=== PATIENT | male | born 1940 | race Caucasian/White ===

== ENCOUNTER 2016-07-16 10:20 | Emergency (ER) | payer MEDICARE, OTHER ==
[2016-07-16 10:43] VITALS: BP 115/56; PULSE 55; RESP 18; TEMP 97.4
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
== END 2016-07-16 11:23 | disposition home or self-care (01) ==
LOC: EC 10:20
DX: K59.03 Drug induced constipation (principal); T40.2X5A Adverse effect of other opioids, initial encounter; M06.9 Rheumatoid arthritis, unspecified; Z86.59 Personal history of other mental and behavioral disorders; I25.10 Atherosclerotic heart disease of native coronary artery without angina pectoris; I10 Essential (primary) hypertension; E78.00 Pure hypercholesterolemia, unspecified; F41.9 Anxiety disorder, unspecified; Z79.82 Long term (current) use of aspirin; Z79.899 Other long term (current) drug therapy; Z91.040 Latex allergy status; F17.290 Nicotine dependence, other tobacco product, uncomplicated
CPT/HCPCS: 99284

== ENCOUNTER 2016-07-19 01:57 | Inpatient (IN) | payer MEDICARE, OTHER ==
[2016-07-19] MEDS ORDERED: ONDANSETRON 4 MG/2 ML VIAL IVP STA (02:55)
[2016-07-19] MEDS ORDERED: SODIUM CHLORIDE 0.9% 1,000 ML IV STA (02:55)
[2016-07-19] MEDS ORDERED: FAMOTIDINE 20 MG/2 ML VIAL IV STA (02:56)
[2016-07-19 03:07] LABS: Basophils # (A) 0.1 k/uL (0-0.2); Basophils % (A) 1 %; CH 27.9; CHCM 33.7; Eosinophils # (A) 0.6 k/uL (0-0.7); Eosinophils % (A) 8 %; HCT 42.2 % (39.0-53.0); HDW 2.25; Luc # (Auto) 0.25; Luc % (Auto) 4; Lymphocytes # (A) 1.1 k/uL (1.0-4.8); Lymphocytes % (A) 17 %; MCH 27.5 pg (25.0-35.0); MCHC 33.2 g/dL (31.0-37.0); Mean Platelet Volume 7.4; Monocytes # (A) 0.6 k/uL (0-1.0); Monocytes % (A) 9 %; Neutrophils # (A) 4.1 k/uL (1.3-7.7); Neutrophils % (A) 62 %; RBC 5.08 m/uL (4.30-5.90); WBC 6.7 k/uL (3.8-10.6); WBC (Perox) 7.07
[2016-07-19 03:17] LABS: INR 1.1 (<1.1); Partial Thromboplastin Time 27.9 sec (22.0-30.0); Prothrombin Time 11.1 sec (9.0-12.0)
[2016-07-19 03:18] LABS: ALT 23 U/L (21-72); AST 16 U/L (17-59); Alkaline Phosphatase 130 U/L (38-126); Amylase 42 U/L (30-110); Anion Gap 12 mmol/L; Blood Urea Nitrogen 15 mg/dL (9-20); Calcium 9.5 mg/dL (8.4-10.2); Carbon Dioxide 24 mmol/L (22-30); Chloride 106 mmol/L (98-107); Glucose 101 mg/dL (74-99); Magnesium 2.1 mg/dL (1.6-2.3); Non-African American GFR(MDRD) >60 (>60 ml/min/1.73 sqM); Potassium 3.9 mmol/L (3.5-5.1); Sodium 142 mmol/L (137-145); Total Bilirubin 0.5 mg/dL (0.2-1.3); Total Protein 7.2 g/dL (6.3-8.2)
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
[2016-07-19 03:27] LABS: Creatine Kinase 43 U/L (55-170)
[2016-07-19 03:40] LABS: Creatine Kinase MB 0.5 ng/mL (0.0-2.4); Troponin I <0.012 ng/mL (0.000-0.034)
--- NOTE | 2016-07-19 03:55 | XR ---
EXAMINATION TYPE: XR chest 2V DATE OF EXAM: 07/19/2016 3:31 AM COMPARISON: 02/18/2016 HISTORY: Chest pain history of CAD, CABG previous GA nausea and vomiting difficulty in and painful sw allowing TECHNIQUE: Frontal and lateral views of the chest are obtained. FINDINGS: Mild chronic lung changes are suggested. There is mild cardiomegaly and postsurgical changes of stevens otomy. There is no focal air space opacity, pleural effusion, or pneumothorax seen. The osseous structures a re intact. IMPRESSION: 1. Chronic lung changes. 2. No active lung infiltrates. 3. Sternotomy and mild cardiomegaly. 4. No significant interval change
[2016-07-19] MEDS ORDERED: SODIUM CHLORIDE 0.9% 1,000 ML IV ONE (09:14)
[2016-07-19] MEDS ORDERED: DOCUSATE 100 MG CAP PO PRN (09:17)
[2016-07-19] MEDS ORDERED: MAGNESIUM CITRATE 296 ML BOTTLE PO PRN (09:17)
[2016-07-19] MEDS ORDERED: Acetaminophen-Codeine 300-30mg TAB PO PRN (09:17)
[2016-07-19] MEDS ORDERED: SIMETHICONE 80 MG CHEWABLE PO PRN (09:17)
[2016-07-19] MEDS ORDERED: NITROGLYCERIN SL TABS 0.4 MG TAB SUBLINGUAL PRN (09:17)
[2016-07-19] MEDS ORDERED: LIDOCAINE 1% INJ 10MG/ML (20 ML MDV) ONE (11:06)
[2016-07-19] MEDS ORDERED: KETAMINE 10 MG/ML 20 ML VIAL ONE (11:06)
[2016-07-19] MEDS ORDERED: PROPOFOL 10 MG/ML 20 ML VIAL IV ONE (11:06)
[2016-07-19] MEDS ORDERED: IV FLUID CONTINUATION 1,000 ML IV ONE (11:15)
--- NOTE | 2016-07-19 11:31 | P.PCN ---
Date of Procedure: 07/19/16 Procedure(s) Performed: BRIEF HISTORY: Patient is a 75-year-old, pleasant, white male, scheduled for an upper endoscopy as a part of evaluation of progressive dysphagia to solids of several months duration but much worse since last night after dinner. Because of the clinical suspicion for acute foreign body impaction he scheduled for an upper endoscopy. PROCEDURE PERFORMED: Esophagogastroduodenoscopy and foreign body removal. PREOPERATIVE DIAGNOSIS: Progressive dysphagia to solids with acute worsening of symptoms since last night. IV sedation per anesthesia. PROCEDURE: After informed consent was obtained, the patient was brought into the endoscopy unit. IV conscious sedation was administered by Anesthesia under continuous monitoring. Initially the Olympus GIF-140 video endoscope was inserted into the mouth. Esophagus intubated without any difficulty. It was gradually advanced into the distal esophagus there was a large piece of meat impacted in the distal esophagus. Using a Zabala net I was able to remove the piece of meat along with the scope. Following this the esophagus was reintubated without any difficulty and was gradually advanced into the distal esophagus where the esophageal stricture was identified. With gentle pressure I was able to push the scope into the stomach and duodenum and carefully examined. The bulb and the second part of the duodenum appeared normal. The scope at this time was withdrawn to the stomach, adequately insufflated with air , and upon careful examination, mucosa of the antrum, body, cardia and the fundus appeared normal. The scope was then withdrawn into the esophagus. The GE junction was located at 37 cm from the incisors. Once again there was a distal esophageal stricture identified. There was small amount of oozing noted at the site where the scope was passed. Some erosions were also identified in this area. Rest of the esophagus appeared normal and the patient tolerated the procedure well IMPRESSION: 1. Distal esophageal stricture with food impaction status post foreign body removal as described above. 2. Small hiatal hernia. RECOMMENDATIONS: The findings of this examination were discussed with the patient.. He will be started on a soft diet. We'll start him on Protonix 40 mg every 12 hours. He can be discharged home later today or tomorrow.
--- NOTE | 2016-07-19 13:36 | CONS ---
DATE OF CONSULTATION: 07/19/2016 REASON FOR CONSULTATION: Dysphagia, decreased appetite and heartburn. HISTORY OF PRESENT ILLNESS: The patient is a 75-year-old pleasant, white male who came into the emergency room last night complaining of dysphagia for the last several months' duration. The patient also complains of heartburn and decreased oral intake because of lack of appetite. He came into the emergency room and I was called rubber roller grinder operator around 4:00 for possible foreign body and the patient was scheduled to have an upper endoscopy with foreign body removal this morning; however, in the meantime, he did not have any family available and hence it was decided to admit the patient for observation. The patient, however, states that he is feeling much better. He still has dysphagia, that has been progressively getting worse for the last several weeks duration. He has heartburn almost on a daily basis. He denies any recent PPI use. No recent NSAID use also. PAST MEDICAL HISTORY: Significant for schizophrenia, hypertension, coronary artery disease, mild dementia, rheumatoid arthritis, history of DE in the past, psoriasis. PAST SURGICAL HISTORY: Appendectomy, cholecystectomy, CABG, and cardiac cath. Medications at home include Zetia, metoprolol, Norvasc, [place], vitamin D3, aspirin, Colace and magnesium citrate. SOCIAL HISTORY: No smoking or alcohol use. FAMILY HISTORY: Unremarkable. REVIEW OF SYSTEMS: CARDIOPULMONARY: No chest pain or shortness of breath. GENITOURINARY: No dysuria or hematuria. MUSCULOSKELETAL: Unremarkable. SKIN: Unremarkable. ENDOCRINE: Unremarkable. PSYCHIATRIC: Unremarkable. NEUROLOGY: Unremarkable. ENT/VISION: Unremarkable. CONSTITUTIONAL: No recent weight loss. No fevers, chills or night sweats. On physical examination, blood pressure is 150/69, pulse is 79, temperature 97.2. HEENT: Examination unremarkable. Conjunctivae pink. Sclerae anicteric. Oral cavity, no lesions. NECK: No JVD or lymph node enlargement. CHEST: Clear to auscultation. HEART: Regular rate and rhythm. ABDOMEN: Soft. Bowel sounds are positive. No organomegaly. EXTREMITIES: No pedal edema. SKIN: No rashes. NEURO: Alert and oriented x3. No focal deficits. LABS: CBC with differential count is within normal limits. Basic metabolic panel is within normal limits. Alkaline phosphatase is 130. IMPRESSION: This is a patient who presents to the ER with dysphagia for the last several months duration, which has been progressively getting worse, but much worse since last night, possibly we are dealing with food impaction in the distal esophagus. Apparently, the patient had a similar episode 2 years ago requiring an upper endoscopy with foreign body removal. RECOMMENDATIONS: Will proceed with an upper endoscopy today. Discussed with the patient risks, benefits, and complications of procedure and he is agreeable to it. Thank you for this consultation.
[2016-07-19] MEDS: PANTOPRAZOLE 40 MG TABLET PO SCH ×2 (14:19→18:18)
[2016-07-19] MEDS: HYDROcodone/APAP 7.5-325MG 1 EACH TAB PO PRN (20:16)
[2016-07-19] MEDS ORDERED: EZETIMIBE 10 MG TAB PO SCH (22:00)
[2016-07-20] MEDS: HYDROcodone/APAP 7.5-325MG 1 EACH TAB PO PRN (04:08)
[2016-07-20] MEDS: PANTOPRAZOLE 40 MG TABLET PO SCH (08:23)
[2016-07-20 08:32] VITALS: BP 123/61; PULSE 57; RESP 16; TEMP 98.4
[2016-07-20] MEDS ORDERED: ASPIRIN 81 MG CHEW PO SCH (09:00)
[2016-07-20] MEDS ORDERED: METOPROLOL TARTRATE 50 MG TAB PO SCH (09:00)
[2016-07-20] MEDS ORDERED: amLODIPine 10 MG TAB PO SCH (09:00)
--- NOTE | 2016-07-20 11:20 | P.PN ---
Subjective Principal diagnosis: dysphagia Status post EGD for evaluation progressive dysphagia to solids for several months with findings of distal esophageal stricture with food impaction status post removal and small sliding hiatal hernia. Tolerating soft diet. Dysphagia improved. Objective - Vital Signs Vital signs: Vital Signs Temp 98.4 F 07/20/16 07:00 Pulse 57 L 07/20/16 07:00 Resp 16 07/20/16 07:00 BP 123/61 07/20/16 07:00 Pulse Ox 95 07/20/16 07:00 Intake & Output 07/19/16 07/20/16 07/20/16 18:59 06:59 18:59 Intake Total 100 500 Balance 100 500 Intake: IV 100 500 Sodium Chloride 0.9% 1, 500 000 ml @ 50 mls/hr IV . Q20H ONE Rx#:[id number] Other: # Voids 2 - Exam General appearance: The patient is alert, oriented, in no acute distress. HET: Head is normocephalic and atraumatic. Pupils are equal and reactive. Oropharynx is clear without lesions. Neck: Supple without lymphadenopathy. Trachea midline. Heart: S1 S2. Regular rate and rhythm. Lungs: No crackles or wheezes are heard. Abdomen: Soft, nontender, nondistended with bowel sounds. No peritoneal signs. No palpable organomegaly or masses. Extremities: Normal skin color and turgor. No cyanosis, rash, ulceration, clubbing, or edema. Radial and pedal pulses are 2/4 bilaterally. Neurological: No focal deficits. Strength and sensation are grossly intact. - Labs CBC & Chem 7: 07/19/16 03:00 07/19/16 03:00 Assessment and Plan Plan: Impression: 1. Dysphagia status post EGD with findings of distal esophageal stricture with food impaction status post removal with small sliding hiatal hernia. Plan: 1. Agreeable for discharge. We'll follow as needed. 2. Protonix 40 mg twice daily. Return to office in 1-2 weeks. Assessment and plan of care discussed with Dr. Alan.
--- NOTE | 2016-07-20 11:21 | P.DS ---
Providers Date of admission: 07/19/16 09:15 Expected date of discharge: 07/20/16 Attending physician: West Bateman Consults: Dr. Shrestha GI Primary care physician: West Bateman Hospital Course: a 75-year-old gentleman presented on the day of admission to the emergency room July 19 with a chief complaint of dysphagia onset several months prior has gotten progressively worse. patient stated that he was having difficult time swallowing with noting a burning sensation in the chest. patient states he was vomiting up everything he tried to eat. patient stated the burning radiated up into the esophagus. [place] like his chest was burning. The patient reports that he felt like there was food in the esophagus he could not swallow. Patient stated he had a similar epsode several years prior it did require an endoscopic with a foreign body removed. Patient was admitted to the services of the attending. A GI Dr. Shrestha consultation was obtained for the progressive dysphagia with acute worsening of symptoms within the last 24 hours. recommendations were to proceed with an EGD to evaluate patient elected to proceed and did undergo an EGD with foreign body removed. Postprocedure patient's diet was advanced on the day of discharge patient was able to tolerate a full diet there were no further symptoms. Patient was started on protonix felt to be appropriate to be discharged to home Impression discharge diagnosis present on admission progressive dysphagia to solids status post EGD with foreign body remova [id number] History of esophageal reflux Small hiatal hernia per EGD Distal esophageal stricture with food impaction noted on an EGD July 19 History of a mood disorder schizophrenia anxiety depression history of psoriasis Memory impairment hypertension The above dictated assessment and findings were discussed with dr bateman Impression and the plan of care have been dictated as directed. Leticia Faust nurse practitioner acting as a scribe for dr bateman Patient Condition at Discharge: Good Plan - Discharge Summary New Discharge Prescriptions: Pantoprazole [Protonix] 40 mg PO AC-BID #60 tablet. Discharge Medication List Ezetimibe [Zetia] 10 mg PO HS@219901/14/14 [History] Metoprolol Tartrate [Lopressor] 50 mg PO DAILY@89901/14/14 [History] amLODIPine BESYLATE [Norvasc] 10 mg PO DAILY@89901/14/14 [History] Nitroglycerin Sl Tabs [Nitrostat] 0.4 mg SUBLINGUAL Q5M PRN 10/12/15 [History] HYDROcodone/APAP 7.5-325MG [[place] 7.5-325] 1 tab PO TID PRN 12/18/15 [History] Ergocalciferol [Vitamin D2 (DRISDOL)] 50,000 unit PO QMONTH 02/18/16 [History] Simethicone [Gas-X] 125 mg PO DAILY PRN 02/18/16 [History] Aspirin EC [Ecotrin Low Dose] 81 mg PO DAILY@0900 07/04/16 [History] Acetaminophen-Codeine 300-30mg [Tylenol w/codeine #3] 1 tab PO Q4H PRN 07/16/16 [History] Docusate [Colace] 100 mg PO BID PRN 07/16/16 [History] Magnesium Citrate [Citrate of Magnesia] 296 ml PO DAILY PRN 07/16/16 [History] Pantoprazole [Protonix] 40 mg PO AC-BID #60 tablet.dr 07/20/16 [Rx] Follow up Appointment(s)/Referral(s): West Bateman MD [Primary Care Provider] - 1-2 days Debbie Alan MD [STAFF PHYSICIAN] - 1 Week Patient Instructions/Handouts: Dysphagia (ED) Discharge Disposition: HOME SELF-CARE
--- NOTE | 2016-07-20 21:06 | HP ---
DATE OF ADMISSION: 07/19/2016 CHIEF COMPLAINT: Dysphagia and foreign body in the esophagus. HISTORY OF PRESENT ILLNESS: This is another admission for this 75-year-old white male who has a history of CAD and COPD as well as depression. He was eating and impacted a bolus of fluid in his esophagus. He came to emergency room. He was taken to the operating room and a large bolus of meat was removed. Apparently no other pathology was seen. He had no fever, chills, hemoptysis, vomiting, diarrhea, melena, etc. He is admitted for observation based on upon his history of coronary artery disease, COPD and the anesthesia. REVIEW OF SYSTEMS: He is doing fine now. He has no symptoms at all. He is well and feeling has no pain. He denied any shortness of breath, cough, hemoptysis, fever, ( ) suggestion of aspiration, etc. Past medical history, family history, and personal and social histories are all otherwise unremarkable or noncontributory. HE IS ALLERGIC TO NSAIDS AND PENICILLIN, LASIX, SINEQUAN AND HALDOL. He is on: 1. Zetia 10 mg once a day. 2. Hydroxyzine 10 mg twice a day for itching. 3. ( ) 50 mg a day. 4. Vitamin D 50,000 units a month. 5. Humira for rheumatoid arthritis. 6. Amlodipine 10 mg once a day. 7. Ativan 0.5 t.i.d. p.r.n. 8. 81 mg aspirin. PHYSICAL EXAMINATION: Blood pressure 124/60 with a pulse of 56, respirations 12, he is afebrile. GENERAL: Appeared to be well-developed, well-nourished, in no acute distress. SKIN: Skin color is normal. Skin is warm and dry. Lymph nodes are not enlarged. Head, ears, eyes, nose, mouth, and throat were normal. Neck veins not distended. Thyroid is not enlarged. Chest is clear. Cardiac exam is normal. Soft, nontender. EXTREMITIES: Normal. Neurologically intact. IMPRESSION: 1. Dysphagia due to foreign body in esophagus. 2. Coronary artery disease. 3. Chronic obstructive pulmonary disease. 4. Rheumatoid arthritis. 5. Anxiety, depression. PLAN: Bed rest, intravenous fluids and frequent monitoring of his neurologic status and vital signs and probably home tomorrow.
--- NOTE | 2016-07-20 21:37 | PN ---
DATE OF SERVICE: 07/20/2016 CHIEF COMPLAINT: Obstructed esophagus with CAD and COPD . HISTORY OF PRESENT ILLNESS: This gentleman is doing well and he is awake and alert. He feels steady and he is eating and swallowing solids. PHYSICAL EXAMINATION: CHEST: Clear. CARDIAC: Normal. ABDOMEN: Soft, nontender. IMPRESSION: 1. Esophageal obstruction with foreign body. 2. Coronary artery disease. 3. Chronic obstructive pulmonary disease. 4. Depression. 5. RA. PLAN: Probably home later today and this will be arranged by the nurse practitioner.
--- NOTE | 2016-07-23 21:11 | DS ---
DATE OF ADMISSION: 07/19/2016 DATE OF DISCHARGE: 07/20/2016 CHIEF COMPLAINT: Foreign body in the esophagus and chest pain with CAD. HISTORY OF PRESENT ILLNESS AND PHYSICAL EXAMINATION: Details of this man's history and physical can be found in the initial workup. LABORATORY STUDIES: While he was in the hospital he had laboratory studies, details of which can be found in the laboratory section of his chart. COURSE IN THE HOSPITAL: After admission he was placed on bed rest, started on intravenous fluids and had an endoscopy. A large foreign body/meat bolus was removed from the distal esophagus. No other pathology was seen. He was kept overnight because of his history of COPD and heart disease. He did well. The next day it was felt that he could go home on his usual diet and activity and regular medications. He will be seen in the office in several days. FINAL DIAGNOSES: 1. Foreign body in the distal saphenous. 2. Chest pain. 3. Coronary artery disease. 4. Chronic obstructive pulmonary disease. 5. Depression. OPERATIONS: Endoscopy and removal of foreign body. CONSULTATION: GI. He is improved.
[2016-08-17] MEDS ORDERED: ERGOCALCIFEROL 50,000 UNIT CAP PO SCH (12:00)
== END 2016-07-20 14:30 | disposition home or self-care (01) | DRG 395 ==
LOC: EC 01:57 → 5MS5E 09:15 → 5ONC 09:58
PROVIDERS: ADMIT Family Medicine; ATTEND Family Medicine
PROC: 0DC38ZZ Extirpation of Matter from Lower Esophagus, Via Natural or Artificial Opening Endoscopic (ICD-10-PCS; principal; 2016-07-19 09:00)
DX: T18.128A Food in esophagus causing other injury, initial encounter (principal); J44.9 Chronic obstructive pulmonary disease, unspecified; F03.90 Unspecified dementia, unspecified severity, without behavioral disturbance, psychotic disturbance, mood disturbance, and anxiety; K22.2 Esophageal obstruction; R13.19 Other dysphagia; K21.9 Gastro-esophageal reflux disease without esophagitis; M06.9 Rheumatoid arthritis, unspecified; K44.9 Diaphragmatic hernia without obstruction or gangrene; I10 Essential (primary) hypertension; R14.0 Abdominal distension (gaseous); I25.10 Atherosclerotic heart disease of native coronary artery without angina pectoris; F39 Unspecified mood [affective] disorder; I45.10 Unspecified right bundle-branch block; E78.00 Pure hypercholesterolemia, unspecified; F32.9 Major depressive disorder, single episode, unspecified; L40.9 Psoriasis, unspecified; F20.9 Schizophrenia, unspecified; F41.9 Anxiety disorder, unspecified; F10.21 Alcohol dependence, in remission; F17.200 Nicotine dependence, unspecified, uncomplicated; I25.2 Old myocardial infarction; Z95.1 Presence of aortocoronary bypass graft; Z90.49 Acquired absence of other specified parts of digestive tract; Z89.412 Acquired absence of left great toe; Z89.422 Acquired absence of other left toe(s); Z87.828 Personal history of other (healed) physical injury and trauma; Z79.82 Long term (current) use of aspirin; Z79.899 Other long term (current) drug therapy; Z79.891 Long term (current) use of opiate analgesic; Z88.6 Allergy status to analgesic agent; Z91.040 Latex allergy status; Z88.0 Allergy status to penicillin; Z88.2 Allergy status to sulfonamides; Z91.048 Other nonmedicinal substance allergy status
CPT/HCPCS: 36415; 44799; 71020; 80053; 82150; 82550; 82553; 83690; 83735; 84484; 85025; 85610; 85730; 93005; 96361; 96374; 96375; 99153; 99284; 99285

== ENCOUNTER 2016-08-07 11:14 | Emergency (ER) | payer MEDICARE, OTHER ==
[2016-08-07] MEDS ORDERED: MAG HYDROX/AL HYDROX/SIMETH 30 ML, HYOSCYAMINE ELIXIR 10 ML, CIMETIDINE HCL 300 MG, LID... PO STA ×4 (14:55)
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
[2016-08-07 15:36] LABS: ALT 29 U/L (21-72); AST 16 U/L (17-59); Alkaline Phosphatase 131 U/L (38-126); Amylase 66 U/L (30-110); Anion Gap 10 mmol/L; Blood Urea Nitrogen 13 mg/dL (9-20); Calcium 9.5 mg/dL (8.4-10.2); Carbon Dioxide 25 mmol/L (22-30); Chloride 103 mmol/L (98-107); Glucose 98 mg/dL (74-99); Non-African American GFR(MDRD) >60 (>60 ml/min/1.73 sqM); Potassium 4.6 mmol/L (3.5-5.1); Sodium 138 mmol/L (137-145); Total Bilirubin 0.8 mg/dL (0.2-1.3); Total Protein 7.5 g/dL (6.3-8.2)
[2016-08-07 15:38] LABS: Basophils # (A) 0.1 k/uL (0-0.2); Basophils % (A) 1 %; CHCM 33.9; Eosinophils # (A) 0.9 k/uL (0-0.7); Eosinophils % (A) 9 %; HCT 40.8 % (39.0-53.0); HDW 2.29; HGB 13.7 gm/dL (13.0-17.5); Luc # (Auto) 0.26; Luc % (Auto) 3; Lymphocytes # (A) 1.5 k/uL (1.0-4.8); Lymphocytes % (A) 15 %; MCH 27.8 pg (25.0-35.0); MCHC 33.5 g/dL (31.0-37.0); MCV 82.9 fL (80.0-100.0); Mean Platelet Volume 6.9; Monocytes # (A) 0.7 k/uL (0-1.0); Monocytes % (A) 8 %; Neutrophils # (A) 6.3 k/uL (1.3-7.7); Neutrophils % (A) 64 %; RBC 4.92 m/uL (4.30-5.90); WBC 9.7 k/uL (3.8-10.6); WBC (Perox) 10.23
--- NOTE | 2016-08-07 15:53 | XR ---
EXAMINATION TYPE: XR abdomen 2V DATE OF EXAM: 08/07/2016 3:35 PM CLINICAL DATA: 76-year-old male with lower right-sided abdominal pain, [facility] COMPARISON: 07/04/2016 FINDINGS: Lung bases are clear. Vascular calcifications in the left upper quadrant. Cholecystectomy clips are p resent. There is mild stool burden with scattered colonic gas extending distally to the rectum. No dilated small bowel or air-fluid level seen. Vascular calcifications in the pelvis. Mild degenerat boni changes of the right hip. No evidence for free intraperitoneal air. IMPRESSION: 1. Mild stool burden. 2.No evidence of bowel obstruction or free intraperitoneal air.
[2016-08-07 15:56] VITALS: RESP 16
[2016-08-07 16:04] LABS: Appearance,Urine Clear (Clear); Bilirubin,Urine Negative (Negative); Glucose,Urine (UA) Negative (Negative); Ketones,Urine Negative (Negative); Leukocyte Esterase,Urine Negative (Negative); Nitrite,Urine Negative (Negative); Protein,Urine Negative (Negative); Specific Gravity,Urine 1.003 (1.001-1.035); UA Billing (MACRO vs. MICRO) CHEM; Urobilinogen,Urine <2.0 mg/dL (<2.0)
[2016-08-07 17:21] VITALS: BP 130/72; PULSE 52; TEMP 97.6
== END 2016-08-07 17:21 | disposition home or self-care (01) ==
LOC: EC 11:14
DX: K59.00 Constipation, unspecified (principal); L30.9 Dermatitis, unspecified; M06.9 Rheumatoid arthritis, unspecified; Z79.891 Long term (current) use of opiate analgesic; Z79.899 Other long term (current) drug therapy; Z79.82 Long term (current) use of aspirin; Z91.040 Latex allergy status; Z88.0 Allergy status to penicillin; Z88.2 Allergy status to sulfonamides; Z88.8 Allergy status to other drugs, medicaments and biological substances; Z88.1 Allergy status to other antibiotic agents; I25.2 Old myocardial infarction; I25.10 Atherosclerotic heart disease of native coronary artery without angina pectoris; I10 Essential (primary) hypertension; Z95.1 Presence of aortocoronary bypass graft; Z98.61 Coronary angioplasty status; F17.200 Nicotine dependence, unspecified, uncomplicated
CPT/HCPCS: 36415; 74020; 80053; 81003; 82150; 83690; 85025; 93005; 99284

== ENCOUNTER 2016-08-14 10:12 | Emergency (ER) | payer MEDICARE, OTHER ==
[2016-08-14 10:25] VITALS: TEMP 97
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
--- NOTE | 2016-08-14 11:42 | XR ---
EXAMINATION TYPE: XR shoulder complete RT DATE OF EXAM: 08/14/2016 11:29 AM COMPARISON: NONE HISTORY: Pain The osseous structures are intact. There is no acute fracture or dislocation. The AC joint is narro wed with hypertrophic change. Sternotomy wires noted. Mild diffuse osteopenia. IMPRESSION: 1. No acute process. 2. AC joint arthropathy correlate clinically for rotator cuff disease.
[2016-08-14 12:15] VITALS: BP 120/56; PULSE 58; RESP 20
[2016-08-14] MEDS ORDERED: IBUPROFEN 800 MG TAB PO STA (12:25)
== END 2016-08-14 12:32 | disposition home or self-care (01) ==
LOC: EC 10:12
DX: S43.421A Sprain of right rotator cuff capsule, initial encounter (principal); X50.0XXA Overexertion from strenuous movement or load, initial encounter; Z79.899 Other long term (current) drug therapy; I10 Essential (primary) hypertension; E78.00 Pure hypercholesterolemia, unspecified; Z91.040 Latex allergy status; Z88.0 Allergy status to penicillin; Z88.2 Allergy status to sulfonamides; Z88.8 Allergy status to other drugs, medicaments and biological substances; Z91.048 Other nonmedicinal substance allergy status; I25.10 Atherosclerotic heart disease of native coronary artery without angina pectoris; I25.2 Old myocardial infarction; F17.200 Nicotine dependence, unspecified, uncomplicated; Z95.1 Presence of aortocoronary bypass graft; Z79.82 Long term (current) use of aspirin; M06.9 Rheumatoid arthritis, unspecified; F41.9 Anxiety disorder, unspecified
CPT/HCPCS: 99284

== ENCOUNTER 2016-08-18 12:48 | Emergency (ER) | payer MEDICARE, OTHER ==
[2016-08-18 12:58] VITALS: BP 120/59; PULSE 53; RESP 18; TEMP 98.3
[2016-08-18] MEDS ORDERED: HYDROcodone/APAP 7.5-325MG 1 EACH TAB PO ONE (13:41)
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
== END 2016-08-18 14:05 | disposition home or self-care (01) ==
LOC: EC 12:48
DX: M19.011 Primary osteoarthritis, right shoulder (principal); I10 Essential (primary) hypertension; I25.10 Atherosclerotic heart disease of native coronary artery without angina pectoris; I25.2 Old myocardial infarction; E78.00 Pure hypercholesterolemia, unspecified; F17.200 Nicotine dependence, unspecified, uncomplicated; Z88.0 Allergy status to penicillin; Z88.1 Allergy status to other antibiotic agents; Z88.2 Allergy status to sulfonamides; Z88.8 Allergy status to other drugs, medicaments and biological substances; Z95.1 Presence of aortocoronary bypass graft; Z98.61 Coronary angioplasty status; Z79.82 Long term (current) use of aspirin; Z89.422 Acquired absence of other left toe(s); Z89.412 Acquired absence of left great toe; Z91.040 Latex allergy status; Z91.048 Other nonmedicinal substance allergy status; Z79.899 Other long term (current) drug therapy
CPT/HCPCS: 99283

== ENCOUNTER 2016-11-20 10:02 | Emergency (ER) | payer MEDICARE ==
[2016-11-20 10:06] VITALS: BP 118/57; PULSE 55; RESP 20; TEMP 97.4
[2016-11-20] MEDS ORDERED: methylPREDNISolone SOD SUCCI 125 MG/2 ML VIAL IM ONE (10:24)
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
== END 2016-11-20 10:40 | disposition home or self-care (01) ==
LOC: EC 10:02
DX: L30.9 Dermatitis, unspecified (principal); I10 Essential (primary) hypertension; M06.9 Rheumatoid arthritis, unspecified; E78.5 Hyperlipidemia, unspecified; I25.10 Atherosclerotic heart disease of native coronary artery without angina pectoris; F17.200 Nicotine dependence, unspecified, uncomplicated; Z89.422 Acquired absence of other left toe(s); Z79.899 Other long term (current) drug therapy; Z88.0 Allergy status to penicillin; Z88.2 Allergy status to sulfonamides; Z88.8 Allergy status to other drugs, medicaments and biological substances; Z91.040 Latex allergy status; Z91.048 Other nonmedicinal substance allergy status
CPT/HCPCS: 99282; 96372; J2930

== ENCOUNTER 2017-08-20 12:57 | Emergency (ER) | payer MEDICARE, OTHER ==
[2017-08-20 13:11] VITALS: BP 127/69; RESP 18; TEMP 97.2
[2017-08-20 13:15] VITALS: PULSE 74
[2017-08-20] MEDS ORDERED: methylPREDNISolone SOD SUCCI 125 MG/2 ML VIAL IM STA (14:17)
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
== END 2017-08-20 14:37 | disposition home or self-care (01) ==
LOC: EC 12:57
DX: L25.9 Unspecified contact dermatitis, unspecified cause (principal); I25.10 Atherosclerotic heart disease of native coronary artery without angina pectoris; E78.5 Hyperlipidemia, unspecified; I10 Essential (primary) hypertension; I25.2 Old myocardial infarction; Z95.1 Presence of aortocoronary bypass graft; Z95.5 Presence of coronary angioplasty implant and graft; F17.200 Nicotine dependence, unspecified, uncomplicated; Z79.82 Long term (current) use of aspirin; Z79.899 Other long term (current) drug therapy; Z91.048 Other nonmedicinal substance allergy status; Z91.040 Latex allergy status; Z88.8 Allergy status to other drugs, medicaments and biological substances; Z88.0 Allergy status to penicillin; Z88.2 Allergy status to sulfonamides
CPT/HCPCS: 99282; 96372; J2930

== ENCOUNTER 2017-09-11 19:25 | Emergency (ER) | payer MEDICARE, OTHER ==
[2017-09-11 19:42] VITALS: BP 153/71; PULSE 98; RESP 18; TEMP 97.1
[2017-09-11] MEDS ORDERED: predniSONE 50 MG TAB PO STA (20:01)
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
== END 2017-09-11 20:22 | disposition home or self-care (01) ==
LOC: EC 19:25
DX: R21 Rash and other nonspecific skin eruption (principal); I25.10 Atherosclerotic heart disease of native coronary artery without angina pectoris; I10 Essential (primary) hypertension; I25.2 Old myocardial infarction; F17.200 Nicotine dependence, unspecified, uncomplicated; Z79.899 Other long term (current) drug therapy; Z79.82 Long term (current) use of aspirin; Z88.0 Allergy status to penicillin; Z88.2 Allergy status to sulfonamides; Z91.040 Latex allergy status; Z91.048 Other nonmedicinal substance allergy status; Z88.8 Allergy status to other drugs, medicaments and biological substances
CPT/HCPCS: 99282; J7512

== ENCOUNTER 2017-09-22 10:07 | Emergency (ER) | payer MEDICARE, OTHER ==
[2017-09-22 10:39] VITALS: RESP 18
[2017-09-22] MEDS ORDERED: predniSONE 50 MG TAB PO STA (10:58)
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
[2017-09-22 11:38] VITALS: BP 111/56; PULSE 53; TEMP 98
== END 2017-09-22 11:51 | disposition home or self-care (01) ==
LOC: EC 10:07
DX: L29.9 Pruritus, unspecified (principal); I25.10 Atherosclerotic heart disease of native coronary artery without angina pectoris; E78.5 Hyperlipidemia, unspecified; I10 Essential (primary) hypertension; I25.2 Old myocardial infarction; F17.200 Nicotine dependence, unspecified, uncomplicated; Z79.899 Other long term (current) drug therapy; Z88.0 Allergy status to penicillin; Z88.1 Allergy status to other antibiotic agents; Z88.2 Allergy status to sulfonamides; Z88.8 Allergy status to other drugs, medicaments and biological substances; Z91.040 Latex allergy status; Z91.048 Other nonmedicinal substance allergy status
CPT/HCPCS: 99282; J7512

== ENCOUNTER 2017-10-03 13:19 | Emergency (ER) | payer MEDICARE, OTHER ==
[2017-10-03 14:12] VITALS: BP 100/50; PULSE 57; RESP 18; TEMP 97.3
--- NOTE | 2017-10-03 14:41 | ED ---
General Adult HPI - General Chief complaint: Skin/Abscess/Foreign Body Stated complaint: skin redness/burning Time Seen by Provider: 10/03/17 14:15 Source: patient, RN notes reviewed, old records reviewed Mode of arrival: ambulatory Limitations: no limitations - History of Present Illness Initial comments: Patient 77-year-old male presented to the emergency room today with chief complaint of a rash over the last 2-3 months. Patient states that he has been on steroids multiple times for this. His steroids to improve it take away the itching. Does improve blisters to stop the medication and seems to return. He denies any new medications or soaps or laundry detergents. Patient states he has been trying to follow up with dermatology has not seen them yet. She spent currently taking Benadryl for symptoms. He states is very itchy.Patient denies any recent fever, chills, shortness of breath, chest pain, back pain, abdominal pain, nausea or vomiting, numbness or tingling, headaches or visual changes, or any other complaints. - Related Data Home Medications Medication Instructions Recorded Confirmed Ezetimibe [Zetia] 10 mg PO HS@2200 01/14/14 09/22/17 Metoprolol Tartrate [Lopressor] 50 mg PO DAILY@0900 01/14/14 09/22/17 amLODIPine BESYLATE [Norvasc] 10 mg PO DAILY@0900 01/14/14 09/22/17 Nitroglycerin Sl Tabs [Nitrostat] 0.4 mg SUBLINGUAL Q5M PRN 10/12/15 09/22/17 Ergocalciferol [Vitamin D2 50,000 unit PO QMONTH 02/18/16 09/22/17 (DRISDOL)] Acetaminophen [Tylenol Arthritis] 650 mg PO Q12H PRN 08/07/16 09/22/17 hydrOXYzine HCL [Atarax] 25 mg PO TID PRN 08/07/16 09/22/17 Pantoprazole [Protonix] 40 mg PO DAILY 08/14/16 09/22/17 LORazepam [Ativan] 0.5 mg PO DAILY PRN 09/22/17 09/22/17 Melatonin 3 mg PO HS 09/22/17 09/22/17 Sertraline [Zoloft] 25 mg PO DAILY 09/22/17 09/22/17 Triamcinolone 0.1% Ointment 1 applic TOPICAL DAILY 09/22/17 09/22/17 [Kenalog 0.1% Ointment] Previous Rx's Medication Instructions Recorded HYDROcodone/APAP 7.5-325MG [[place] 1 tab PO Q6HR PRN #12 tab 08/18/16 7.5-325] Ibuprofen [Motrin] 800 mg PO Q8HR PRN #20 tab 08/18/16 predniSONE 40 mg PO DAILY #8 tab 09/22/17 Permethrin 5% Cream [Elimite] 1 applic TOPICAL ONCE #1 tube 10/03/17 predniSONE 10 mg PO DIRECTED #33 tab 10/03/17 Allergies Allergy/AdvReac Type Severity Reaction Status Date / Time adhesive Allergy Rash/Hives Verified 10/03/17 14:12 latex Allergy Itching Verified 10/03/17 14:12 amitriptyline [From Elavil] AdvReac Nausea & Verified 10/03/17 14:12 Vomiting amitriptyline HCl AdvReac Nausea & Verified 10/03/17 14:12 [From Triavil 2-10] Vomiting doxepin HCl [From Sinequan] AdvReac Nausea & Verified 10/03/17 14:12 Vomiting haloperidol [From Haldol] AdvReac Nausea & Verified 10/03/17 14:12 Vomiting Penicillins AdvReac Nausea & Verified 10/03/17 14:12 Vomiting perphenazine AdvReac Nausea & Verified 10/03/17 14:12 [From Triavil 2-10] Vomiting sulfamethoxazole AdvReac Nausea & Verified 10/03/17 14:12 [From Bactrim] Vomiting trimethoprim [From Bactrim] AdvReac Nausea & Verified 10/03/17 14:12 Vomiting Review of Systems ROS Statement: Those systems with pertinent positive or pertinent negative responses have been documented in the HPI. ROS Other: All systems not noted in ROS Statement are negative. Past Medical History Past Medical History: Coronary Artery Disease (CAD), Hyperlipidemia, Hypertension, Memory Impairment, Myocardial Infarction ([place]), Rheumatoid Arthritis (RA), Skin Disorder Additional Past Medical History / Comment(s): PSORASIS, RECOVERING ALCOHOLIC ( 11 YRS) hx of esophageal stricture Last Myocardial Infarction Date:: 2009 History of Any Multi-Drug Resistant Organisms: None Reported Past Surgical History: Appendectomy, Cholecystectomy, Coronary Bypass/CABG, Heart Catheterization Additional Past Surgical History / Comment(s): toe amputation (1ST AND 2ND TOE ON LEFT FOOT, R/T S[employer] ORIGINAL ACCIDENT), QUAD BIPASS (3-4 YEARS AGO) EGD WITH DILATION Past Anesthesia/Blood Transfusion Reactions: No Reported Reaction Past Psychological History: Anxiety, Depression, Schizoaffective Disorder, Schizophrenia Smoking Status: Current every day smoker Past Alcohol Use History: None Reported Past Drug Use History: None Reported - Past Family History Father Family Medical History: Cancer Additional Family Medical History / Comment(s): Father had prostate cancer. General Exam - General Exam Comments Initial Comments: General: The patient is awake and alert, in no distress, and does not appear acutely ill. Eye: Pupils are equal, round and reactive to light, extra-ocular movements are intact. No nystagmus. There is normal conjunctiva bilaterally. No signs of icterus. Ears, nose, mouth and throat: There are moist mucous membranes and no oral lesions. Neck: The neck is supple, there is no tenderness or JVD. Cardiovascular: There is a regular rate and rhythm. No murmur, rub or gallop is appreciated. Respiratory: Lungs are clear to auscultation, respirations are non-labored, breath sounds are equal. No wheezes, stridor, rales, or rhonchi. Musculoskeletal: Normal ROM, no tenderness. Strength 5/5. Sensation intact. Pulses equal bilaterally 2+. Neurological: A&O x 3. CN II-XII intact, There are no obvious motor or sensory deficits. Coordination appears grossly intact. Speech is normal. Skin: Patient does have red erythematous rash to the upper extremities and upper anterior torso. Areas are red excoriated from itching. Areas do bridger. Psychiatric: Cooperative, appropriate mood & affect, normal judgment. Limitations: no limitations Course Vital Signs 10/03/17 14:09 Temperature 97.3 F L Pulse Rate 57 L Respiratory 18 Rate Blood Pressure 100/50 O2 Sat by Pulse 95 Oximetry Medical Decision Making - Medical Decision Making Visions previous records were reviewed is been on steroids in the past for this. He states it does help. He'll be given a longer tapering dose of steroids. He is advised that he needs to see the rat trapper for this rash is not improving. Patient advised continue Benadryl. He'll also given permethrin cream advised to use it tonight washed off to see if that there is any improvement with this. Patient states understanding and is in agreement. Disposition Clinical Impression: Dermatitis Disposition: HOME SELF-CARE Condition: Good Instructions: Dermatitis (ED) Additional Instructions: Please use the permethrin cream tonight before he go to bed and wash it off tomorrow morning. Apply from the neck down. Please use the steroids as prescribed and follow-up with rat trapper over the next 2 days. Please return for any other concerns. Prescriptions: Permethrin 5% Cream [Elimite] 1 applic TOPICAL ONCE #1 tube predniSONE 10 mg PO DIRECTED #33 tab Referrals: West Bateman MD [Primary Care Provider] - 1-2 days Maykel Springer MD [STAFF PHYSICIAN] - 1-2 days Time of Disposition: 14:32
[2017-10-03] MEDS ORDERED: predniSONE 10 MG TAB PO STA (14:47)
[2017-10-03] MEDS ORDERED: predniSONE 50 MG TAB PO STA (14:49)
== END 2017-10-03 15:00 | disposition home or self-care (01) ==
LOC: EC 13:19
DX: L30.9 Dermatitis, unspecified (principal); I25.10 Atherosclerotic heart disease of native coronary artery without angina pectoris; I10 Essential (primary) hypertension; I25.2 Old myocardial infarction; F41.9 Anxiety disorder, unspecified; F32.9 Major depressive disorder, single episode, unspecified; E78.5 Hyperlipidemia, unspecified; Z95.1 Presence of aortocoronary bypass graft; Z95.5 Presence of coronary angioplasty implant and graft; Z79.899 Other long term (current) drug therapy; Z91.048 Other nonmedicinal substance allergy status; Z91.040 Latex allergy status; Z88.8 Allergy status to other drugs, medicaments and biological substances; Z88.0 Allergy status to penicillin; Z88.2 Allergy status to sulfonamides; F17.200 Nicotine dependence, unspecified, uncomplicated
CPT/HCPCS: 99283; J7512

== ENCOUNTER 2017-11-13 09:52 | Emergency (ER) | payer MEDICARE, OTHER ==
--- NOTE | 2017-11-13 12:30 | ED ---
Neck Injury/Pain HPI - General Chief Complaint: Neck Pain/Injury Stated Complaint: Neck Pain Time Seen by Provider: 11/13/17 12:24 Source: patient, RN notes reviewed Mode of arrival: ambulatory Limitations: no limitations - History of Present Illness Initial Comments: This is a 77-year-old male with history of arthritis who presents to the emergency department with chief complaint of neck pain. Patient states that he has arthritis in his neck. He states that 2-3 days ago he developed a constant ache in his neck. He states that the only relief he has ever gotten from the arthritic neck pain has been from taking a course of steroids. He states that it is been difficult to sleep at night due to the pain. He denies any recent falls, injuries or trauma. Denies any recent illnesses, fevers or chills, headache or dizziness, chest pain shortness of breath, abdominal pain, nausea or vomiting, diarrhea or constipation, numbness or tingling. - Related Data Home Medications Medication Instructions Recorded Confirmed Ezetimibe [Zetia] 10 mg PO HS@2200 01/14/14 09/22/17 Metoprolol Tartrate [Lopressor] 50 mg PO DAILY@0900 01/14/14 09/22/17 amLODIPine BESYLATE [Norvasc] 10 mg PO DAILY@0900 01/14/14 09/22/17 Nitroglycerin Sl Tabs [Nitrostat] 0.4 mg SUBLINGUAL Q5M PRN 10/12/15 09/22/17 Ergocalciferol [Vitamin D2 50,000 unit PO QMONTH 02/18/16 09/22/17 (DRISDOL)] Acetaminophen [Tylenol Arthritis] 650 mg PO Q12H PRN 08/07/16 09/22/17 hydrOXYzine HCL [Atarax] 25 mg PO TID PRN 08/07/16 09/22/17 Pantoprazole [Protonix] 40 mg PO DAILY 08/14/16 09/22/17 LORazepam [Ativan] 0.5 mg PO DAILY PRN 09/22/17 09/22/17 Melatonin 3 mg PO HS 09/22/17 09/22/17 Sertraline [Zoloft] 25 mg PO DAILY 09/22/17 09/22/17 Triamcinolone 0.1% Ointment 1 applic TOPICAL DAILY 09/22/17 09/22/17 [Kenalog 0.1% Ointment] Aspirin 81 mg PO DAILY 11/13/17 11/13/17 Previous Rx's Medication Instructions Recorded predniSONE 20 mg PO BID #10 tab 11/13/17 Allergies Allergy/AdvReac Type Severity Reaction Status Date / Time adhesive Allergy Rash/Hives Verified 11/13/17 12:31 latex Allergy Itching Verified 11/13/17 12:31 amitriptyline [From Elavil] AdvReac Nausea & Verified 11/13/17 12:31 Vomiting amitriptyline HCl AdvReac Nausea & Verified 11/13/17 12:31 [From Triavil 2-10] Vomiting doxepin HCl [From Sinequan] AdvReac Nausea & Verified 11/13/17 12:31 Vomiting haloperidol [From Haldol] AdvReac Nausea & Verified 11/13/17 12:31 Vomiting Penicillins AdvReac Nausea & Verified 11/13/17 12:31 Vomiting perphenazine AdvReac Nausea & Verified 11/13/17 12:31 [From Triavil 2-10] Vomiting sulfamethoxazole AdvReac Nausea & Verified 11/13/17 12:31 [From Bactrim] Vomiting trimethoprim [From Bactrim] AdvReac Nausea & Verified 11/13/17 12:31 Vomiting Review of Systems ROS Statement: Those systems with pertinent positive or pertinent negative responses have been documented in the HPI. ROS Other: All systems not noted in ROS Statement are negative. Past Medical History Past Medical History: Coronary Artery Disease (CAD), Hyperlipidemia, Hypertension, Memory Impairment, Myocardial Infarction ([place]), Rheumatoid Arthritis (RA), Skin Disorder Additional Past Medical History / Comment(s): PSORASIS, RECOVERING ALCOHOLIC ( 11 YRS) hx of esophageal stricture Last Myocardial Infarction Date:: 2009 History of Any Multi-Drug Resistant Organisms: None Reported Past Surgical History: Appendectomy, Cholecystectomy, Coronary Bypass/CABG, Heart Catheterization Additional Past Surgical History / Comment(s): toe amputation (1ST AND 2ND TOE ON LEFT FOOT, R/T [employer]GER [employer] ACCIDENT), QUAD BIPASS (3-4 YEARS AGO) EGD WITH DILATION Past Anesthesia/Blood Transfusion Reactions: No Reported Reaction Past Psychological History: Anxiety, Depression, Schizoaffective Disorder, Schizophrenia Smoking Status: Current every day smoker Past Alcohol Use History: None Reported Past Drug Use History: None Reported - Past Family History Father Family Medical History: Cancer Additional Family Medical History / Comment(s): Father had prostate cancer. General Exam - General Exam Comments Initial Comments: General: Awake and alert, well-developed; in no apparent distress. HEENT: Head atraumatic, normocephalic. Pupils are equal, round and reactive to light. Extraocular movements intact. Oropharynx moist without erythema or exudate. Neck: Supple. Normal ROM. Cardiovascular: Regular rate and rhythm. No murmurs, rubs or gallops. Chest symmetrical. Respiratory: Lungs clear to auscultation bilaterally. No wheezes, rales or rhonchi. Normal respiratory effort with no use of accessory muscles. Musculoskeletal: Limited range of motion with rotation of the neck due to pain. Normal flexion and extension. No tenderness on palpation of cervical spine or musculature. Sensation is intact. Radial pulses are 2+ equal and palpable bilaterally. [employer] strength is normal bilaterally. Skin: [place], warm and dry without rashes or lesions. Neurological: Alert and oriented x3. CN II-XII grossly intact. Speech is fluent and answers are appropriate. No focal neuro deficits. Psychiatric: Normal mood and affect. No overt signs of depression or anxiety noted. Limitations: no limitations Course Vital Signs 11/13/17 10:24 Temperature 97.6 F Pulse Rate 53 L Respiratory 18 Rate Blood Pressure 121/62 O2 Sat by Pulse 97 Oximetry Medical Decision Making - Medical Decision Making This is a 77-year-old male who presents to the emergency department with chief complaint of arthritic neck pain. Patient has been seen multiple times in the emergency department with the same complaint. He requests a course of steroids which helps relieve the pain. Denies any recent falls, injuries or trauma. Denies numbness or tingling. He is neurovascularly intact. Vital signs are stable and patient is in no acute distress. He did receive 50 mg prednisone while in the emergency department. He will be discharged home with additional course of prednisone. Patient will be discharged home at this time. He is in agreement with plan and voices understanding. All questions were answered. Disposition Clinical Impression: Flare of rheumatoid arthritis Disposition: HOME SELF-CARE Condition: Good Instructions: Arthritis (ED) Additional Instructions: Please take medications as prescribed. Please follow up with primary care provider within 1-2 days. Return to emergency department if symptoms should worsen or any concerns arise. Prescriptions: predniSONE 20 mg PO BID #10 tab Is patient prescribed a controlled substance at d/c from ED?: No Referrals: West Bateman MD [Primary Care Provider] - 1-2 days Time of Disposition: 12:42
[2017-11-13] MEDS ORDERED: predniSONE 50 MG TAB PO STA (12:38)
[2017-11-13 13:20] VITALS: BP 132/63; PULSE 59; RESP 16; TEMP 97.8
== END 2017-11-13 13:41 | disposition home or self-care (01) ==
LOC: EC 09:52
DX: M06.9 Rheumatoid arthritis, unspecified (principal); M47.812 Spondylosis without myelopathy or radiculopathy, cervical region; E78.5 Hyperlipidemia, unspecified; I10 Essential (primary) hypertension; I25.10 Atherosclerotic heart disease of native coronary artery without angina pectoris; L40.9 Psoriasis, unspecified; F32.9 Major depressive disorder, single episode, unspecified; F41.9 Anxiety disorder, unspecified; I25.2 Old myocardial infarction; F17.200 Nicotine dependence, unspecified, uncomplicated; Z79.52 Long term (current) use of systemic steroids; Z79.82 Long term (current) use of aspirin; Z79.899 Other long term (current) drug therapy; Z88.0 Allergy status to penicillin; Z88.1 Allergy status to other antibiotic agents; Z88.8 Allergy status to other drugs, medicaments and biological substances; Z91.040 Latex allergy status; Z91.09 Other allergy status, other than to drugs and biological substances; Z87.19 Personal history of other diseases of the digestive system
CPT/HCPCS: 99282; J7512

== ENCOUNTER 2017-11-30 14:52 | Emergency (ER) | payer MEDICARE ==
[2017-11-30 15:01] VITALS: TEMP 97.8
[2017-11-30] MEDS ORDERED: methylPREDNISolone SOD SUCCI 125 MG/2 ML VIAL IM ONE (16:10)
--- NOTE | 2017-11-30 16:11 | ED ---
Recheck HPI - General Chief Complaint: Recheck/Abnormal Lab/Rx Stated Complaint: Pain All Over Time Seen by Provider: 11/30/17 15:30 Source: patient, RN notes reviewed, old records reviewed Mode of arrival: ambulatory Limitations: no limitations - History of Present Illness Initial Comments: this patient's a 77-year-old male with a history of rheumatoid arthritis presents emergency Department with a rash on bilateral anterior aspect of his arms. He reports history pain all over. He states that he'll he was off of steroids in the past few days and his pain seems to return. Patient states that he follows with Dr. Rodriguez in his PCP. Patient reports that since he does not take steroids he seems to have worsening pain. He did ride his bike to the emergency department today. Patient requests a Solu-Medrol injection. He states the rash over his arms. Neck. He has been using occasional steroid cream. Nothing recently. He denies any other symptoms including chest pain shortness breath, nausea, vomiting, fevers, chills. He states that he just has diffuse body aches with in all of his joints. - Related Data Home Medications Medication Instructions Recorded Confirmed Ezetimibe [Zetia] 10 mg PO HS@2200 01/14/14 11/13/17 Metoprolol Tartrate [Lopressor] 50 mg PO DAILY@0900 01/14/14 11/13/17 amLODIPine BESYLATE [Norvasc] 10 mg PO DAILY@0900 01/14/14 11/13/17 Nitroglycerin Sl Tabs [Nitrostat] 0.4 mg SUBLINGUAL Q5M PRN 10/12/15 11/13/17 Ergocalciferol [Vitamin D2 50,000 unit PO QMONTH 02/18/16 11/13/17 (DRISDOL)] Acetaminophen [Tylenol Arthritis] 650 mg PO Q12H PRN 08/07/16 11/13/17 hydrOXYzine HCL [Atarax] 25 mg PO TID PRN 08/07/16 11/13/17 Pantoprazole [Protonix] 40 mg PO DAILY 08/14/16 11/13/17 LORazepam [Ativan] 0.5 mg PO DAILY PRN 09/22/17 11/13/17 Melatonin 3 mg PO HS 09/22/17 11/13/17 Sertraline [Zoloft] 25 mg PO DAILY 09/22/17 11/13/17 Triamcinolone 0.1% Ointment 1 applic TOPICAL BID 09/22/17 11/13/17 [Kenalog 0.1% Ointment] Aspirin 81 mg PO DAILY 11/13/17 11/13/17 Previous Rx's Medication Instructions Recorded predniSONE 20 mg PO BID #10 tab 11/13/17 Triamcinolone 0.5% Cream [Kenalog 1 applic TOPICAL QID #60 gm 11/30/17 0.5% Cream] methylPREDNISolone Dose Pack 4 mg PO DIRECTED #21 package 11/30/17 [Medrol Dose Pack] Allergies Allergy/AdvReac Type Severity Reaction Status Date / Time adhesive Allergy Rash/Hives Verified 11/30/17 15:01 latex Allergy Itching Verified 11/30/17 15:01 amitriptyline [From Elavil] AdvReac Nausea & Verified 11/30/17 15:01 Vomiting amitriptyline HCl AdvReac Nausea & Verified 11/30/17 15:01 [From Triavil 2-10] Vomiting doxepin HCl [From Sinequan] AdvReac Nausea & Verified 11/30/17 15:01 Vomiting haloperidol [From Haldol] AdvReac Nausea & Verified 11/30/17 15:01 Vomiting Penicillins AdvReac Nausea & Verified 11/30/17 15:01 Vomiting perphenazine AdvReac Nausea & Verified 11/30/17 15:01 [From Triavil 2-10] Vomiting sulfamethoxazole AdvReac Nausea & Verified 11/30/17 15:01 [From Bactrim] Vomiting trimethoprim [From Bactrim] AdvReac Nausea & Verified 11/30/17 15:01 Vomiting Review of Systems ROS Statement: Those systems with pertinent positive or pertinent negative responses have been documented in the HPI. ROS Other: All systems not noted in ROS Statement are negative. Past Medical History Past Medical History: Coronary Artery Disease (CAD), Hyperlipidemia, Hypertension, Memory Impairment, Myocardial Infarction ([place]), Rheumatoid Arthritis (RA), Skin Disorder Additional Past Medical History / Comment(s): PSORASIS, RECOVERING ALCOHOLIC ( 11 YRS) hx of esophageal stricture Last Myocardial Infarction Date:: 2009 History of Any Multi-Drug Resistant Organisms: None Reported Past Surgical History: Appendectomy, Cholecystectomy, Coronary Bypass/CABG, Heart Catheterization Additional Past Surgical History / Comment(s): toe amputation (1ST AND 2ND TOE ON LEFT FOOT, R/T HOMIC[employer] ACCIDENT), QUAD BIPASS (3-4 YEARS AGO) EGD WITH DILATION Past Anesthesia/Blood Transfusion Reactions: No Reported Reaction Past Psychological History: Anxiety, Depression, Schizoaffective Disorder, Schizophrenia Smoking Status: Current every day smoker Past Alcohol Use History: None Reported Past Drug Use History: None Reported - Past Family History Father Family Medical History: Cancer Additional Family Medical History / Comment(s): Father had prostate cancer. General Exam - General Exam Comments Initial Comments: 77-year-old male. Alert and oriented. No acute distress. Pleasant. Limitations: no limitations General appearance: alert, in no apparent distress Head exam: Present: atraumatic, normocephalic, normal inspection Eye exam: Present: normal appearance, PERRL, EOMI. Absent: scleral icterus, conjunctival injection, periorbital swelling ENT exam: Present: normal exam, mucous membranes moist Neck exam: Present: normal inspection. Absent: tenderness, meningismus, lymphadenopathy Respiratory exam: Present: normal lung sounds bilaterally. Absent: respiratory distress, wheezes, rales, rhonchi, stridor Cardiovascular Exam: Present: regular rate, normal rhythm, normal heart sounds, other (scar from open heart surgery.). Absent: systolic murmur, diastolic murmur, rubs, gallop, clicks GI/Abdominal exam: Present: soft, normal bowel sounds. Absent: distended, tenderness, guarding, rebound, rigid Extremities exam: Present: normal inspection, full ROM, normal capillary refill , other (patient has an erythematous raised rash over anterior aspect of bilateral antecubital processes and forearms.). Absent: tenderness, pedal edema , joint swelling, calf tenderness Back exam: Present: normal inspection Neurological exam: Present: alert, oriented X3, CN II-XII intact Psychiatric exam: Present: normal affect Course Vital Signs 11/30/17 11/30/17 14:59 16:48 Temperature 97.8 F Pulse Rate 63 54 L Respiratory 20 16 Rate Blood Pressure 109/55 153/68 O2 Sat by Pulse 98 95 Oximetry Medical Decision Making - Medical Decision Making 37-year-old male presents department with a flare of his arthritis. Was recently off of steroids reports that the symptoms returned. This time he requests a Solu-Medrol shot. He did ride his bike to the emergency department. He is given IM Solu-Medrol to help with both the rash and his joint pain and inflammation. He'll be started on Medrol Dosepak. He says he should follow-up with PCP in regards to possibility of maintenance steroid use. Discussed return parameters. Patient agrees to treatment plan will comply.. Disposition Clinical Impression: Arthritis, Rash and nonspecific skin eruption Disposition: HOME SELF-CARE Condition: Good Instructions: Rheumatoid Arthritis (ED) Additional Instructions: Patient has a follow-up with primary care provider. Return to emergency department if any alarming signs or symptoms occur. Prescriptions: methylPREDNISolone Dose Pack [Medrol Dose Pack] 4 mg PO DIRECTED #21 package Triamcinolone 0.5% Cream [Kenalog 0.5% Cream] 1 applic TOPICAL QID #60 gm Is patient prescribed a controlled substance at d/c from ED?: No If prescribed controlled substance>3 days was MAPS reviewed?: No When asked, does pt state using other controlled substances?: No Referrals: West Bateman MD [Primary Care Provider] - 1-2 days Time of Disposition: 16:10
[2017-11-30 16:49] VITALS: BP 153/68; PULSE 54; RESP 16
== END 2017-11-30 16:49 | disposition home or self-care (01) ==
LOC: EC 14:52
DX: M06.9 Rheumatoid arthritis, unspecified (principal); I25.10 Atherosclerotic heart disease of native coronary artery without angina pectoris; E78.5 Hyperlipidemia, unspecified; I10 Essential (primary) hypertension; I25.2 Old myocardial infarction; F25.9 Schizoaffective disorder, unspecified; F41.9 Anxiety disorder, unspecified; F32.9 Major depressive disorder, single episode, unspecified; F17.200 Nicotine dependence, unspecified, uncomplicated; Z79.82 Long term (current) use of aspirin; Z79.899 Other long term (current) drug therapy; Z88.0 Allergy status to penicillin; Z88.1 Allergy status to other antibiotic agents; Z91.040 Latex allergy status; Z88.8 Allergy status to other drugs, medicaments and biological substances; Z91.048 Other nonmedicinal substance allergy status; Z98.61 Coronary angioplasty status
CPT/HCPCS: 99283; 96372; J2930

== ENCOUNTER 2017-12-09 09:53 | Emergency (ER) | payer MEDICARE ==
[2017-12-09 10:09] VITALS: BP 111/59; PULSE 61; RESP 18; TEMP 98
[2017-12-09] MEDS ORDERED: methylPREDNISolone SOD SUCCI 125 MG/2 ML VIAL IM ONE (10:43)
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
[2017-12-09] MEDS ORDERED: methylPREDNISolone SOD SUCCI 125 MG/2 ML VIAL ONE (10:50)
== END 2017-12-09 11:00 | disposition home or self-care (01) ==
LOC: EC 09:53
DX: L29.9 Pruritus, unspecified (principal); T43.215A Adverse effect of selective serotonin and norepinephrine reuptake inhibitors, initial encounter; I25.10 Atherosclerotic heart disease of native coronary artery without angina pectoris; E78.5 Hyperlipidemia, unspecified; I10 Essential (primary) hypertension; I25.2 Old myocardial infarction; F41.9 Anxiety disorder, unspecified; F32.9 Major depressive disorder, single episode, unspecified; F17.200 Nicotine dependence, unspecified, uncomplicated; Z95.1 Presence of aortocoronary bypass graft; Z95.818 Presence of other cardiac implants and grafts; Z79.82 Long term (current) use of aspirin; Z79.899 Other long term (current) drug therapy; Z91.048 Other nonmedicinal substance allergy status; Z91.040 Latex allergy status; Z88.8 Allergy status to other drugs, medicaments and biological substances; Z88.0 Allergy status to penicillin; Z88.2 Allergy status to sulfonamides
CPT/HCPCS: 99282

== ENCOUNTER 2017-12-28 09:55 | Emergency (ER) | payer MEDICARE ==
[2017-12-28 10:02] VITALS: TEMP 97.6
[2017-12-28] MEDS ORDERED: methylPREDNISolone SOD SUCCI 125 MG/2 ML VIAL IM ONE (10:34)
[2017-12-28] MEDS ORDERED: FAMOTIDINE 20 MG TAB PO STA (10:34)
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
[2017-12-28 11:36] VITALS: BP 132/79; PULSE 80; RESP 16
== END 2017-12-28 11:36 | disposition home or self-care (01) ==
LOC: EC 09:55
DX: A46 Erysipelas (principal); L50.9 Urticaria, unspecified; I25.10 Atherosclerotic heart disease of native coronary artery without angina pectoris; I10 Essential (primary) hypertension; I25.2 Old myocardial infarction; F25.1 Schizoaffective disorder, depressive type; F41.9 Anxiety disorder, unspecified; F17.200 Nicotine dependence, unspecified, uncomplicated; Z95.1 Presence of aortocoronary bypass graft; Z95.818 Presence of other cardiac implants and grafts; Z79.82 Long term (current) use of aspirin; Z79.899 Other long term (current) drug therapy; Z91.048 Other nonmedicinal substance allergy status; Z91.040 Latex allergy status; Z88.8 Allergy status to other drugs, medicaments and biological substances; Z88.0 Allergy status to penicillin; Z88.2 Allergy status to sulfonamides
CPT/HCPCS: 99282; 96372; J2930

== ENCOUNTER 2018-01-16 09:54 | Emergency (ER) | payer MEDICARE ==
[2018-01-16 10:31] VITALS: BP 106/59; PULSE 54; RESP 18; TEMP 98
[2018-01-16] MEDS ORDERED: methylPREDNISolone SOD SUCCI 125 MG/2 ML VIAL IM ONE (10:53)
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
== END 2018-01-16 11:21 | disposition home or self-care (01) ==
LOC: EC 09:54
DX: L50.9 Urticaria, unspecified (principal); I25.10 Atherosclerotic heart disease of native coronary artery without angina pectoris; E78.5 Hyperlipidemia, unspecified; I10 Essential (primary) hypertension; I25.2 Old myocardial infarction; M06.9 Rheumatoid arthritis, unspecified; F41.9 Anxiety disorder, unspecified; F32.9 Major depressive disorder, single episode, unspecified; F25.9 Schizoaffective disorder, unspecified; F17.200 Nicotine dependence, unspecified, uncomplicated; Z90.49 Acquired absence of other specified parts of digestive tract; Z95.1 Presence of aortocoronary bypass graft; Z98.890 Other specified postprocedural states; Z79.82 Long term (current) use of aspirin; Z79.899 Other long term (current) drug therapy; Z88.0 Allergy status to penicillin; Z88.1 Allergy status to other antibiotic agents; Z88.2 Allergy status to sulfonamides; Z88.8 Allergy status to other drugs, medicaments and biological substances; Z91.040 Latex allergy status; Z91.048 Other nonmedicinal substance allergy status
CPT/HCPCS: 99283; 96372; J2930

== ENCOUNTER 2018-01-16 17:54 | Inpatient (IN) | payer MEDICARE ==
[2018-01-16] MEDS ORDERED: SODIUM CHLORIDE 0.9% 500 ML IV STA (18:33)
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
[2018-01-16 19:17] LABS: Basophils % (A) 0 %; Eosinophils % (A) 0 %; HCT 41.6 % (39.0-53.0); HGB 14.2 gm/dL (13.0-17.5); Lymphocytes # (A) 0.3 k/uL (1.0-4.8); Lymphocytes % (A) 3 %; MCH 29.2 pg (25.0-35.0); MCHC 34.1 g/dL (31.0-37.0); MCV 85.5 fL (80.0-100.0); Mean Platelet Volume 7.1; Monocytes # (A) 0.2 k/uL (0-1.0); Monocytes % (A) 2 %; Neutrophils # (A) 8.4 k/uL (1.3-7.7); Neutrophils % (A) 94 %; Platelet Count 179 k/uL (150-450); RBC 4.87 m/uL (4.30-5.90); RDW 14.6 % (11.5-15.5); WBC 8.9 k/uL (3.8-10.6)
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
[2018-01-16 19:35] LABS: ALT 56 U/L (21-72); AST 23 U/L (17-59); Albumin 3.7 g/dL (3.5-5.0); Alcohol <10 mg/dL; Alkaline Phosphatase 128 U/L (38-126); Amylase 52 U/L (30-110); Anion Gap 8 mmol/L; Blood Urea Nitrogen 20 mg/dL (9-20); Calcium 9.4 mg/dL (8.4-10.2); Carbon Dioxide 24 mmol/L (22-30); Chloride 106 mmol/L (98-107); Glucose 128 mg/dL (74-99); Potassium 4.6 mmol/L (3.5-5.1); Sodium 138 mmol/L (137-145); Total Bilirubin 0.6 mg/dL (0.2-1.3)
--- NOTE | 2018-01-16 19:37 | XR ---
EXAMINATION TYPE: Pelvis and left hip DATE OF EXAM: 01/16/2018 COMPARISON: NONE HISTORY: Left hip pain TECHNIQUE: A single AP view of the pelvis is obtained. Two views of the left hip are obtained. FINDINGS: The pelvic ring is intact. There is mild acetabular spurring. There is subtle increased den sity at the lateral aspect of the left femoral neck. Sacroiliac joints are intact. IMPRESSION: Possible nondisplaced subcapital fracture left femur. No pelvic fracture.
[2018-01-16 19:42] LABS: Creatine Kinase 26 U/L (55-170)
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
[2018-01-16 19:56] LABS: Troponin I <0.012 ng/mL (0.000-0.034)
[2018-01-16] MEDS: SODIUM CHLORIDE 0.9% 1,000 ML IV STA (20:37)
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
[2018-01-16 21:17] LABS: Appearance,Urine Clear (Clear); Bilirubin,Urine Negative (Negative); Blood,Urine Negative (Negative); Color,Urine Yellow; Glucose,Urine (UA) Negative (Negative); Ketones,Urine Negative (Negative); Leukocyte Esterase,Urine Negative (Negative); Nitrite,Urine Negative (Negative); Protein,Urine Negative (Negative); Specific Gravity,Urine 1.011 (1.001-1.035); Urobilinogen,Urine <2.0 mg/dL (<2.0)
[2018-01-16] MEDS ORDERED: NALOXONE 0.4 MG/ML 1 ML VIAL IV PRN (21:18)
[2018-01-16] MEDS ORDERED: NITROGLYCERIN SL TABS 0.4 MG TAB SUBLINGUAL PRN (21:20)
[2018-01-16] MEDS ORDERED: NYSTATIN 100,000UNIT/GM CREAM 30 GM TUBE TOPICAL PRN (21:20)
[2018-01-16 21:27] LABS: Amphetamine Screen,Urine Not Detected (NotDetected); Barbiturate Screen,Urine Not Detected (NotDetected); Benzodiazepines Screen,Urine Not Detected (NotDetected); Cocaine Screen,Urine Not Detected (NotDetected); Methadone Screen, Urine Not Detected (NotDetected); Opiate Screen,Urine Not Detected (NotDetected); Oxycodone Screen, Urine Not Detected (NotDetected); Phencyclidine Screen,Urine Not Detected (NotDetected); Tricyclic Antidepressant,Urine Not Detected (NotDetected); Urn Cannabinoid Scrn Not Detected (NotDetected)
[2018-01-16] MEDS ORDERED: TRIAMCINOLONE 0.1% CREAM 80 GM TUBE TOPICAL PRN (21:35)
[2018-01-16 22:57] VITALS: BMI 23.6
[2018-01-16] MEDS: SODIUM CHLORIDE 0.9% 1,000 ML IV SCH (23:46)
[2018-01-17] MEDS: HYDROmorphone 0.5 MG/0.5 ML SYRINGE IVP PRN ×2 (04:46→12:52)
[2018-01-17] MEDS: SODIUM CHLORIDE 0.9% 1,000 ML IV STA (05:39)
[2018-01-17] MEDS: SODIUM CHLORIDE 0.9% 1,000 ML IV SCH ×3 (05:40→21:21)
[2018-01-17] MEDS: HEPARIN SODIUM,PORCINE 5,000 UNIT/ML 1 ML VIAL SQ SCH ×2 (08:04→21:05)
[2018-01-17 08:11] LABS: INR 1.1 (<1.2); Partial Thromboplastin Time 23.5 sec (22.0-30.0); Prothrombin Time 10.5 sec (9.0-12.0)
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
[2018-01-17] MEDS ORDERED: hydrOXYzine HCL 25 MG TAB PO PRN (11:10)
[2018-01-17] MEDS ORDERED: ACETAMINOPHEN TAB 325 MG TAB PO PRN (11:10)
[2018-01-17] MEDS: IPRATROPIUM-ALBUTEROL 3 ML NEB INHALATION SCH ×3 (11:50→20:35)
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
--- NOTE | 2018-01-17 15:12 | PN ---
PROGRESS NOTE DATE OF SERVICE: 01/17/2017 CHIEF COMPLAINT: Fracture of the left hip. HISTORY OF PRESENT ILLNESS: This gentleman is stable, doing well. Vital signs are normal. PHYSICAL EXAM: His chest is clear. The cardiac exam is normal and the abdomen is soft, nontender. Rash is unchanged. IMPRESSION: 1. Fracture of the left hip. 2. Coronary artery disease. 3. Chronic obstructive pulmonary disease. 4. Generalized rash, etiology unknown. PLAN: Cardiology consult because he has been taking nitroglycerin fairly regularly of late. Once Cardiology has cleared him for surgery, I will also. MMODL / IJN: [id number] /
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
[2018-01-17] MEDS: METOPROLOL TARTRATE 50 MG TAB PO SCH (15:58)
[2018-01-17] MEDS ORDERED: HYDROCORTISONE SUCCINATE 100 MG/2 ML VIAL IVP ONE (16:43)
[2018-01-17] MEDS ORDERED: IV FLUID CONTINUATION 1,000 ML IV ONE (16:52)
[2018-01-17] MEDS ORDERED: MAGNESIUM HYDROXIDE 2,400 MG/10 ML CUP PO PRN (17:03)
[2018-01-17] MEDS ORDERED: TEMAZEPAM 15 MG CAP PO PRN (17:03)
[2018-01-17] MEDS ORDERED: hydrOXYzine PAMOATE 25 MG CAP PO PRN (17:03)
[2018-01-17] MEDS ORDERED: HYDROcodone/APAP 5-325MG 1 EACH TAB PO PRN (17:03)
[2018-01-17] MEDS ORDERED: DIAZEPAM 5 MG TAB PO PRN (17:03)
[2018-01-17] MEDS ORDERED: HYDROmorphone 0.5 MG/0.5 ML SYRINGE IVP PRN ×3 (17:03)
[2018-01-17] MEDS ORDERED: ONDANSETRON 4 MG/2 ML VIAL IVP PRN (17:03)
[2018-01-17] MEDS ORDERED: SODIUM CHLORIDE 0.9% 50 ML with ceFAZolin 2,000 MG IV ONE ×2 (18:00)
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
[2018-01-17 21:07] LABS: Basophils % (A) 0 %; Eosinophils % (A) 0 %; HCT 42.7 % (39.0-53.0); HGB 14.3 gm/dL (13.0-17.5); Lymphocytes # (A) 0.3 k/uL (1.0-4.8); Lymphocytes % (A) 2 %; MCH 29.1 pg (25.0-35.0); MCHC 33.4 g/dL (31.0-37.0); MCV 87.3 fL (80.0-100.0); Mean Platelet Volume 7.5; Monocytes # (A) 0.6 k/uL (0-1.0); Monocytes % (A) 3 %; Neutrophils # (A) 18.3 k/uL (1.3-7.7); Neutrophils % (A) 95 %; Platelet Count 175 k/uL (150-450); RDW 14.7 % (11.5-15.5); WBC 19.3 k/uL (3.8-10.6)
[2018-01-17] MEDS: traZODone HCL 50 MG TAB PO SCH (21:08)
[2018-01-17] MEDS: SENNOSIDES-DOCUSATE SODIUM 1 EACH TAB PO SCH (21:08)
[2018-01-17] MEDS: LACTATED RINGERS 1,000 ML IV SCH (21:18)
[2018-01-17] MEDS: HYDROcodone/APAP 5-325MG 1 EACH TAB PO PRN (23:55)
[2018-01-17] MEDS: ceFAZolin IN SWFI 2 GM/20 ML SYRINGE IVP SCH (23:56)
[2018-01-18] MEDS: LACTATED RINGERS 1,000 ML IV SCH ×2 (03:50→21:23)
[2018-01-18] MEDS: SODIUM CHLORIDE 0.9% 1,000 ML IV SCH ×2 (05:18→15:08)
[2018-01-18] MEDS: HYDROcodone/APAP 5-325MG 1 EACH TAB PO PRN ×3 (06:04→18:14)
[2018-01-18] MEDS: IPRATROPIUM-ALBUTEROL 3 ML NEB INHALATION SCH ×4 (07:44→19:19)
[2018-01-18] MEDS: amLODIPine 10 MG TAB PO SCH (08:07)
[2018-01-18] MEDS: ASPIRIN 81 MG PO SCH (08:07)
[2018-01-18] MEDS: ceFAZolin IN SWFI 2 GM/20 ML SYRINGE IVP SCH (08:07)
[2018-01-18] MEDS: PANTOPRAZOLE 40 MG TABLET PO SCH (08:07)
[2018-01-18] MEDS: METOPROLOL TARTRATE 50 MG TAB PO SCH ×2 (08:09→20:43)
[2018-01-18] MEDS ORDERED: ENOXAPARIN 30 MG/0.3 ML SYRINGE SQ SCH (09:00)
[2018-01-18] MEDS ORDERED: METOPROLOL TARTRATE 50 MG TAB PO SCH (09:00)
--- NOTE | 2018-01-18 10:03 | P.PN ---
Subjective Progress Note Date: 01/18/18 Principal diagnosis: Left femoral neck fracture. This is a 77-year-old male who is status post close reduction with in situ pinning of the left hip for nondisplaced femoral neck fracture. He is postoperative day 1 today. He has no new complaints or concerns today. His pain is well controlled. He reports no fever or chills. Vital signs are stable. Objective - Vital Signs Vital signs: Vital Signs Temp 97.9 F 01/18/18 07:31 Pulse 66 01/18/18 07:59 Resp 18 01/18/18 07:31 BP 132/75 01/18/18 07:31 Pulse Ox 93 L 01/18/18 07:31 Intake & Output 01/17/18 01/18/18 01/18/18 18:59 06:59 18:59 Intake Total 450 900 Output Total 200 525 Balance 250 375 Weight 64.41 kg Intake: IV 450 0 Intake, IV Titration 900 Amount Lactated Ringers 1,000 ml 900 @ 75 mls/hr IV .[id number] [facility] Rx#:[id number] Output: Urine 200 500 Estimated Blood Loss 25 Other: Voiding Method Urinal Urinal # Voids 1 2 - Exam This is a pleasant 77-year-old male in no acute distress. He is alert and oriented 3. Exam of the left hip reveals that his dressing is clean, dry and intact. He has full foot and ankle motion without difficulty or pain. Neurovascular status to the lower extremity is intact. - Labs CBC & Chem 7: 01/17/18 20:34 01/16/18 19:10 Labs: Abnormal Lab Results - Last 24 Hours (Table) 01/17/18 Range/Units 20:34 WBC 19.3 H (3.8-10.6) k/uL Neutrophils # 18.3 H (1.3-7.7) k/uL Lymphocytes # 0.3 L (1.0-4.8) k/uL Assessment and Plan (1) Fall Current Visit: Yes Status: Acute Code(s): W19.XXXA - UNSPECIFIED FALL, INITIAL ENCOUNTER SNOMED Code(s): 9412262 (2) Fracture of hip Current Visit: Yes Status: Acute Code(s): S72.009A - FRACTURE OF UNSP PART OF NECK OF UNSP FEMUR, INIT SNOMED Code(s): 791178822 Plan: The clinical findings are discussed the patient. He is to begin with physical therapy today. He understands his weightbearing restrictions. Plan discharged to home with home care versus inpatient rehab on Saturday.
[2018-01-18] MEDS: SERTRALINE 25 MG TAB PO SCH (10:19)
[2018-01-18] MEDS: MULTIVITAMINS, THERA 1 EACH TAB PO SCH (12:27)
--- NOTE | 2018-01-18 13:44 | P.PN ---
Subjective Progress Note Date: 01/18/18 This is a pleasant 77-year-old gentleman with a past medical history significant for coronary artery disease and status post CABG, hypertension, dyslipidemia, as well as multiple comorbid conditions, who was admitted to the hospital after he fell and landed on the left side of his body. The patient did have fractured of the left femur. He underwent surgery which was uneventful. From the cardiovascular standpoint overview, he denies having any chest pain or chest discomfort, difficulty breathing, feeling of heart racing or fluttering. Yesterday we did increase the dose of Lopressor to 50 mg by mouth twice a day. The blood pressure and heart rate seems to be well-controlled. Objective - Vital Signs Vital signs: Vital Signs Temp 97.9 F 01/18/18 07:31 Pulse 66 01/18/18 11:04 Resp 18 01/18/18 07:31 BP 132/75 01/18/18 07:31 Pulse Ox 93 L 01/18/18 07:31 Intake & Output 01/17/18 01/18/18 01/18/18 18:59 06:59 18:59 Intake Total 450 900 Output Total 200 525 Balance 250 375 Weight 64.41 kg Intake: IV 450 0 Intake, IV Titration 900 Amount Lactated Ringers 1,000 ml 900 @ 75 mls/hr IV .[id number] [facility] Rx#:[id number] Output: Urine 200 500 Estimated Blood Loss 25 Other: Voiding Method Urinal Urinal # Voids 1 2 - Constitutional General appearance: Present: no acute distress - Respiratory Respiratory: bilateral: CTA - Cardiovascular Rhythm: regular Heart sounds: normal: S1, S2 - Labs CBC & Chem 7: 01/17/18 20:34 01/16/18 19:10 Labs: Abnormal Lab Results - Last 24 Hours (Table) 01/17/18 Range/Units 20:34 WBC 19.3 H (3.8-10.6) k/uL Neutrophils # 18.3 H (1.3-7.7) k/uL Lymphocytes # 0.3 L (1.0-4.8) k/uL Assessment and Plan Assessment: Assessment #1 left hip fracture and status post surgery #2 coronary artery disease and status post revascularization #3 hypertension #4 multiple comorbid conditions Plan #1 from the cardiovascular standpoint of view, the patient seems to be asymptomatic #2 the blood pressure and heart rate are well controlled on the current medical regimen #3 we'll follow-up on the echocardiogram.
--- NOTE | 2018-01-18 14:02 | XR ---
EXAMINATION TYPE: XR Hip Complete LT, FL guidance operating room DATE OF EXAM: 01/17/2018 CLINICAL HISTORY: Left hip pain and fracture fixation. TECHNIQUE: Fluoroscopy. COMPARISON: None. FINDINGS/ IMPRESSION: Fluoroscopic guidance was provided during procedure performed by Dr. Davila. A total of 1.22 minutes of fluoroscopic time was utilized during the procedure and 3 spot images w as acquired intramedullary nailing of a left hip fracture.
--- NOTE | 2018-01-18 14:16 | PN ---
PROGRESS NOTE CHIEF COMPLAINT: Fracture left hip. HISTORY OF PRESENT ILLNESS: This gentleman is doing well first day postop. He is oriented and alert and he has had very little pain. PHYSICAL EXAM: His rash is evident on his face and trunk. Chest is clear. Cardiac exam is normal. The abdomen is soft, nontender. IMPRESSION: 1. Fracture of left hip. 2. Coronary artery disease. 3. Chronic obstructive pulmonary disease. PLAN: No change in program at this time. MMODL / IJN: [id number] /
[2018-01-18] MEDS: SENNOSIDES-DOCUSATE SODIUM 1 EACH TAB PO SCH (20:43)
[2018-01-18] MEDS: traZODone HCL 50 MG TAB PO SCH (20:43)
[2018-01-19] MEDS: HYDROcodone/APAP 5-325MG 1 EACH TAB PO PRN ×3 (04:00→21:32)
[2018-01-19] MEDS: PANTOPRAZOLE 40 MG TABLET PO SCH (08:11)
[2018-01-19] MEDS: amLODIPine 10 MG TAB PO SCH (08:12)
[2018-01-19] MEDS: METOPROLOL TARTRATE 50 MG TAB PO SCH ×2 (08:12→19:47)
[2018-01-19] MEDS: ENOXAPARIN 40 MG/0.4 ML SYRINGE SQ SCH (08:12)
[2018-01-19] MEDS: ASPIRIN 81 MG PO SCH (08:12)
[2018-01-19] MEDS: SERTRALINE 25 MG TAB PO SCH (08:15)
[2018-01-19] MEDS: IPRATROPIUM-ALBUTEROL 3 ML NEB INHALATION SCH ×4 (08:17→18:56)
[2018-01-19 09:50] LABS: Basophils % (A) 0 %; Eosinophils # (A) 0.1 k/uL (0-0.7); Eosinophils % (A) 2 %; HCT 37.5 % (39.0-53.0); HGB 12.5 gm/dL (13.0-17.5); Lymphocytes # (A) 0.8 k/uL (1.0-4.8); Lymphocytes % (A) 10 %; MCH 28.4 pg (25.0-35.0); MCHC 33.3 g/dL (31.0-37.0); MCV 85.3 fL (80.0-100.0); Mean Platelet Volume 8.6; Monocytes # (A) 0.5 k/uL (0-1.0); Monocytes % (A) 6 %; Neutrophils # (A) 6.5 k/uL (1.3-7.7); Neutrophils % (A) 81 %; Platelet Count 164 k/uL (150-450); RBC 4.39 m/uL (4.30-5.90); RDW 14.7 % (11.5-15.5)
--- NOTE | 2018-01-19 10:13 | P.PN ---
Subjective Progress Note Date: 01/19/18 Principal diagnosis: Left femoral neck fracture. Status post in situ pinning left hip. This is a 77-year-old male who is status post close reduction with in situ pinning of the left hip for nondisplaced femoral neck fracture. He is postoperative day #2 today. He has no new complaints or concerns today. His pain is well controlled. He reports no fever or chills. Vital signs are stable. Objective - Vital Signs Vital signs: Vital Signs Temp 98.7 F 01/19/18 07:13 Pulse 65 01/19/18 08:29 Resp 18 01/19/18 07:13 BP 134/55 01/19/18 07:13 Pulse Ox 92 L 01/19/18 07:13 Intake & Output 01/18/18 01/19/18 01/19/18 18:59 06:59 18:59 Intake Total 775 Output Total 500 1050 Balance 275 -1050 Intake: Intake, IV Titration 525 Amount Lactated Ringers 1,000 ml 525 @ 75 mls/hr IV .[id number] JOSE Rx#:[id number] Oral 250 Output: Urine 500 1050 Other: Voiding Method Urinal Urinal # Bowel Movements 1 - Exam This is a pleasant 77-year-old male in no acute distress. He is alert and oriented 3. Exam of the left hip reveals that his dressing is clean, dry and intact. He has full foot and ankle motion without difficulty or pain. Neurovascular status to the lower extremity is intact. - Labs CBC & Chem 7: 01/19/18 06:36 01/16/18 19:10 Labs: Abnormal Lab Results - Last 24 Hours (Table) 01/19/18 Range/Units 06:36 Hgb 12.5 L (13.0-17.5) gm/dL Hct 37.5 L (39.0-53.0) % Lymphocytes # 0.8 L (1.0-4.8) k/uL Assessment and Plan (1) Fall Current Visit: Yes Status: Acute Code(s): W19.XXXA - UNSPECIFIED FALL, INITIAL ENCOUNTER SNOMED Code(s): 3289750 (2) Fracture of hip Current Visit: Yes Status: Acute Code(s): S72.009A - FRACTURE OF UNSP PART OF NECK OF UNSP FEMUR, INIT SNOMED Code(s): 791528461 Plan: The clinical findings are discussed the patient. He is to continue physical therapy today. He understands his weightbearing restrictions. Plan discharged to home with home care versus inpatient rehab on Saturday.
[2018-01-19] MEDS: LACTATED RINGERS 1,000 ML IV SCH (10:31)
[2018-01-19] MEDS: MULTIVITAMINS, THERA 1 EACH TAB PO SCH (12:08)
--- NOTE | 2018-01-19 12:48 | P.PN ---
Subjective Progress Note Date: 01/19/18 This is a pleasant 77-year-old gentleman with a past medical history significant for coronary artery disease and status post CABG, hypertension, dyslipidemia, as well as multiple comorbid conditions, who was admitted to the hospital after he fell and landed on the left side of his body. The patient did have fractured of the left femur. He underwent surgery which was uneventful. From the cardiovascular standpoint overview, he denies having any chest pain or chest discomfort, difficulty breathing, feeling of heart racing or fluttering. Distal have some left hip discomfort. The blood pressure and heart rate are well controlled on the current medical regimen including the metoprolol. Objective - Vital Signs Vital signs: Vital Signs Temp 98.7 F 01/19/18 07:13 Pulse 63 01/19/18 11:54 Resp 18 01/19/18 07:13 BP 134/55 01/19/18 07:13 Pulse Ox 92 L 01/19/18 07:13 Intake & Output 01/18/18 01/19/18 01/19/18 18:59 06:59 18:59 Intake Total 775 Output Total 500 1050 Balance 275 -1050 Intake: Intake, IV Titration 525 Amount Lactated Ringers 1,000 ml 525 @ 75 mls/hr IV .[id number] JOSE Rx#:[id number] Oral 250 Output: Urine 500 1050 Other: Voiding Method Urinal Urinal # Bowel Movements 1 - Constitutional General appearance: Present: no acute distress - Respiratory Respiratory: bilateral: CTA - Cardiovascular Heart sounds: normal: S1, S2 - Labs CBC & Chem 7: 01/19/18 06:36 01/16/18 19:10 Labs: Abnormal Lab Results - Last 24 Hours (Table) 01/19/18 Range/Units 06:36 Hgb 12.5 L (13.0-17.5) gm/dL Hct 37.5 L (39.0-53.0) % Lymphocytes # 0.8 L (1.0-4.8) k/uL Assessment and Plan Assessment: Assessment #1 left hip fracture and status post surgery #2 coronary artery disease and status post revascularization #3 hypertension #4 multiple comorbid conditions Plan #1 from the cardiovascular standpoint of view, the patient seems to be asymptomatic #2 the blood pressure and heart rate are well controlled on the current medical regimen #3 we will follow-up with the patient on when necessary case.
[2018-01-19 14:47] VITALS: RESP 16
[2018-01-19] MEDS: traZODone HCL 50 MG TAB PO SCH (19:47)
[2018-01-19] MEDS: SENNOSIDES-DOCUSATE SODIUM 1 EACH TAB PO SCH (22:16)
[2018-01-20] MEDS: LACTATED RINGERS 1,000 ML IV SCH ×2 (00:44→12:09)
[2018-01-20] MEDS: IPRATROPIUM-ALBUTEROL 3 ML NEB INHALATION SCH ×3 (07:47→15:24)
[2018-01-20] MEDS: ENOXAPARIN 40 MG/0.4 ML SYRINGE SQ SCH (07:59)
[2018-01-20] MEDS: PANTOPRAZOLE 40 MG TABLET PO SCH (08:00)
[2018-01-20] MEDS: amLODIPine 10 MG TAB PO SCH (08:00)
[2018-01-20] MEDS: METOPROLOL TARTRATE 50 MG TAB PO SCH (08:00)
[2018-01-20] MEDS: ASPIRIN 81 MG PO SCH (08:00)
[2018-01-20] MEDS: SERTRALINE 25 MG TAB PO SCH (08:04)
[2018-01-20] MEDS: HYDROcodone/APAP 5-325MG 1 EACH TAB PO PRN (09:39)
--- NOTE | 2018-01-20 10:36 | P.DS ---
Providers Date of admission: 01/16/18 21:18 Attending physician: Shaq Davila Consults: 01/16/18 21:19 Consult Physician Routine Consulting Provider: West Bateman Consult Reason/Comments: Medical clearance for hip surgery Do you want consulting provider notified?: Yes 01/17/18 11:13 Consult Physician Urgent Consulting Provider: Marycarmen Ross Consult Reason/Comments: pre-op hip fx, CAD, unsable angina Do you want consulting provider notified?: Yes 01/17/18 11:50 Consult Physician Urgent Consulting Provider: Skyler Walters Consult Reason/Comments: surgical clearance Do you want consulting provider notified?: Already Contacted Primary care physician: West Bateman - Discharge Diagnosis(es) (1) Fracture of hip Patient was admitted to the OR on 01/17/2018 to undergo a closed reduction internal fixation with in situ pinning of left hip fracture. . He desired to proceed with elective surgery after given informed consent. He underwent the above procedure which he tolerated well without complication. Postoperative hospital course has remained without complication. On day of discharge he is afebrile, vital signs stable, labs within acceptable ranges, tolerating by mouth meds and diet, voiding without difficulty, positive flatus, denies abdominal pain or calf pain, pain is controlled on oral pain medication and has no new complaints. Wound is benign, neurovascular status is intact, calf is soft and nontender, abdomen soft and nontender. Review of systems is negative for numbness, tingling, fever, chills, chest pain, shortness breath, nausea, vomiting, dizziness, headaches, slurred speech or other. Current Visit: Yes Status: Acute Priority: Medium Procedures: Closed reduction in situ pinning left hip fracture Patient Condition at Discharge: Fair Plan - Discharge Summary Discharge Rx Participant: Yes New Discharge Prescriptions: New Docusate [Colace] 100 mg PO BID #60 capsule Enoxaparin [Lovenox] 40 mg SQ DAILY #14 syringe HYDROcodone/APAP 5-325MG [[place] 5-325] 1 tab PO Q4HR PRN #60 tab PRN Reason: Pain No Action amLODIPine BESYLATE [Norvasc] 10 mg PO DAILY@0900 Metoprolol Tartrate [Lopressor] 50 mg PO DAILY@0900 Ezetimibe [Zetia] 10 mg PO HS@2200 Nitroglycerin Sl Tabs [Nitrostat] 0.4 mg SUBLINGUAL Q5M PRN PRN Reason: Chest Pain hydrOXYzine HCL [Atarax] 25 mg PO TID PRN PRN Reason: Anxiety Acetaminophen [Tylenol Arthritis] 650 mg PO Q12H PRN PRN Reason: Pain LORazepam [Ativan] 0.5 mg PO TID PRN PRN Reason: Anxiety Aspirin 81 mg PO DAILY traZODone HCL 50 mg PO HS Sertraline HCl [Zoloft] 25 mg PO DAILY Pravastatin Sodium [Pravachol] 80 mg PO HS Pantoprazole [Protonix] 40 mg PO DAILY Hydrocodone/Acetaminophen [[place] 7.5-325] 1 tab PO TID PRN PRN Reason: Pain Ergocalciferol (Vitamin D2) [Vitamin D2] 50,000 unit PO Q30D Nystatin/Triamcin [Nystatin-Triamcinolone Cream] 1 applicate TOPICAL QID PRN PRN Reason: Skin Irritation Melatonin 5 mg PO HS Ibuprofen [Motrin] 800 mg PO TID PRN PRN Reason: Pain predniSONE See Taper PO DAILY Discharge Medication List Ezetimibe [Zetia] 10 mg PO HS@2200 01/14/14 [History] Metoprolol Tartrate [Lopressor] 50 mg PO DAILY@0901/14/14 [History] amLODIPine BESYLATE [Norvasc] 10 mg PO DAILY@0900 01/14/14 [History] Nitroglycerin Sl Tabs [Nitrostat] 0.4 mg SUBLINGUAL Q5M PRN 10/12/15 [History] Acetaminophen [Tylenol Arthritis] 650 mg PO Q12H PRN 08/07/16 [History] hydrOXYzine HCL [Atarax] 25 mg PO TID PRN 08/07/16 [History] LORazepam [Ativan] 0.5 mg PO TID PRN 09/22/17 [History] Aspirin 81 mg PO DAILY 11/13/17 [History] traZODone HCL 50 mg PO HS 12/09/17 [History] Ergocalciferol (Vitamin D2) [Vitamin D2] 50,000 unit PO Q30D 01/16/18 [History] Hydrocodone/Acetaminophen [[place] 7.5-325] 1 tab PO TID PRN 01/16/18 [History] Ibuprofen [Motrin] 800 mg PO TID PRN 01/16/18 [History] Melatonin 5 mg PO HS 01/16/18 [History] Nystatin/Triamcin [Nystatin-Triamcinolone Cream] 1 applicate TOPICAL QID PRN 11/29 [History] Pantoprazole [Protonix] 40 mg PO DAILY 01/16/18 [History] Pravastatin Sodium [Pravachol] 80 mg PO HS 01/16/18 [History] Sertraline HCl [Zoloft] 25 mg PO DAILY 01/16/18 [History] predniSONE See Taper PO DAILY 01/16/18 [History] Docusate [Colace] 100 mg PO BID #60 capsule 01/20/18 [Rx] Enoxaparin [Lovenox] 40 mg SQ DAILY #14 syringe 01/20/18 [Rx] HYDROcodone/APAP 5-325MG [[place] 5-325] 1 tab PO Q4HR PRN #60 tab 01/20/18 [Rx] Follow up Appointment(s)/Referral(s): West Bateman MD [Primary Care Provider] - 1-2 days Shqa Davila MD [Medical Doctor] - 02/03/18 3:00 pm Activity/Diet/Wound Care/Special Instructions: Keep wound clean and dry Take meds as directed Follow-up with Dr. Davila in office Non weightebaring May shower if no bleeding Discharge Disposition: TRANSFER TO SNF/ECF
[2018-01-20] MEDS: MULTIVITAMINS, THERA 1 EACH TAB PO SCH (12:10)
[2018-01-20 14:54] VITALS: BP 123/56; TEMP 98.1
[2018-01-20 15:26] VITALS: PULSE 68
--- NOTE | 2018-01-20 18:09 | PN ---
PROGRESS NOTE DATE OF SERVICE: 01/19/2018. CHIEF COMPLAINT: Fracture left hip. HISTORY OF PRESENT ILLNESS: This gentleman is doing well. He has had no shortness of breath, fever, chills, etc. PHYSICAL EXAM: His rash continues. Chest is clear. Cardiac exam is normal. Abdomen is soft, nontender. IMPRESSION: 1. Status post fracture of the left hip. 2. Coronary artery disease. 3. Chronic obstructive pulmonary disease. 4. Atopic dermatitis. PLAN: He will probably go to rehab tomorrow. MMODL / IJN: [id number] /
== END 2018-01-20 15:57 | DRG 481 ==
LOC: EC 17:54 → 3SUR 21:18
PROVIDERS: ADMIT Orthopaedic Surgery; ATTEND Orthopaedic Surgery
PROC: 0QH704Z Insertion of Internal Fixation Device into Left Upper Femur, Open Approach (ICD-10-PCS; principal; 2018-01-17 18:00)
DX: S72.012A Unspecified intracapsular fracture of left femur, initial encounter for closed fracture (principal); I25.110 Atherosclerotic heart disease of native coronary artery with unstable angina pectoris; I45.2 Bifascicular block; J44.9 Chronic obstructive pulmonary disease, unspecified; F25.9 Schizoaffective disorder, unspecified; M06.9 Rheumatoid arthritis, unspecified; I10 Essential (primary) hypertension; E78.5 Hyperlipidemia, unspecified; L20.9 Atopic dermatitis, unspecified; F32.9 Major depressive disorder, single episode, unspecified; F41.9 Anxiety disorder, unspecified; I25.2 Old myocardial infarction; L40.9 Psoriasis, unspecified; F17.200 Nicotine dependence, unspecified, uncomplicated; Z71.6 Tobacco abuse counseling; F10.21 Alcohol dependence, in remission; Z79.82 Long term (current) use of aspirin; Z79.899 Other long term (current) drug therapy; Z90.49 Acquired absence of other specified parts of digestive tract; Z89.422 Acquired absence of other left toe(s); Z95.1 Presence of aortocoronary bypass graft; Z87.19 Personal history of other diseases of the digestive system; Z91.040 Latex allergy status; Z88.0 Allergy status to penicillin; Z88.2 Allergy status to sulfonamides; Z88.8 Allergy status to other drugs, medicaments and biological substances; Z91.048 Other nonmedicinal substance allergy status; V18.4XXA Pedal cycle driver injured in noncollision transport accident in traffic accident, initial encounter; Y93.55 Activity, bike riding; Z80.42 Family history of malignant neoplasm of prostate
CPT/HCPCS: 36415; 70450; 71046; 72125; 72192; 73502; 80053; 80306; 80320; 81003; 82140; 82150; 82306; 82550; 82553; 83605; 83735; 84484; 85025; 85610; 85730; 93005; 93306; 94640; 96360; 96361; 99285

== ENCOUNTER 2018-02-18 02:32 | Emergency (ER) | payer MEDICARE ==
[2018-02-18 02:38] VITALS: TEMP 98.5
[2018-02-18] MEDS ORDERED: MORPHINE SULFATE 4 MG/ML SYRINGE IV STA (03:15)
[2018-02-18] MEDS ORDERED: ONDANSETRON 4 MG/2 ML VIAL IVP STA (03:15)
--- NOTE | 2018-02-18 03:50 | CT ---
EXAMINATION TYPE: CT abdomen pelvis wo con DATE OF EXAM: 02/18/2018 COMPARISON: 03/12/2015 HISTORY: Prior on synapse, gen abd pain, history of hip surgery 1 month ago, renal stone protocol CT DLP: 324.30 mGycm Automated exposure control for dose reduction was used. TECHNIQUE: Helical acquisition of images was performed from the lung bases through the pelvis. FINDINGS: There is small linear density lingula left upper lobe. There is no pleural effusion. Heart size is no rmal. There is 1.5 cm hypodense focus superior right lobe of the liver that could be a cyst. There are clip s from cholecystectomy. There are other smaller hypodense foci in the liver. Spleen appears normal. T here is no pancreatic mass. Bile ducts are not dilated. There is no adrenal mass. Kidneys have normal size and contour. There is no hydronephrosis. Ureters a re not dilated. Abdominal aorta is atheromatous. There are numerous diverticula in the sigmoid colon. There is no evidence of diverticulitis. Appendix is not seen. There is no sign of appendicitis. Ther e is no evidence of free air. There is no ascites. Bladder distends smoothly. There is pins in the le ft proximal femur. I see no bony destructive process. There is no lumbar compression fracture. There is no retroperitoneal adenopathy. There is no intestinal wall thickening. There are no dilated loops. There is no sign of bowel obstruc tion. IMPRESSION: MULTIPLE SMALL HYPODENSE LIVER FOCI COULD BE CYSTS. THESE APPEAR INCREASED COMPARED TO OLD CT SCAN. NO EVIDENCE OF RENAL STONE OR OBSTRUCTION. SIGMOID DIVERTICULOSIS WITHOUT DIVERTICULITIS.
[2018-02-18 04:25] LABS: Appearance,Urine Clear (Clear); Bilirubin,Urine Negative (Negative); Blood,Urine Negative (Negative); Color,Urine Light Yellow; Glucose,Urine (UA) Negative (Negative); Ketones,Urine Negative (Negative); Leukocyte Esterase,Urine Negative (Negative); Nitrite,Urine Negative (Negative); PH, Urine 6.5 (5.0-8.0); Protein,Urine Negative (Negative); Specific Gravity,Urine 1.006 (1.001-1.035); Urobilinogen,Urine <2.0 mg/dL (<2.0)
[2018-02-18 04:26] LABS: Basophils # (A) 0.1 k/uL (0-0.2); Basophils % (A) 1 %; Eosinophils # (A) 0.3 k/uL (0-0.7); Eosinophils % (A) 3 %; HCT 38.9 % (39.0-53.0); HGB 13.1 gm/dL (13.0-17.5); Lymphocytes # (A) 1.5 k/uL (1.0-4.8); Lymphocytes % (A) 12 %; MCH 28.1 pg (25.0-35.0); MCHC 33.7 g/dL (31.0-37.0); MCV 83.3 fL (80.0-100.0); Mean Platelet Volume 7.4; Monocytes # (A) 1.1 k/uL (0-1.0); Monocytes % (A) 9 %; Neutrophils # (A) 9.2 k/uL (1.3-7.7); Neutrophils % (A) 74 %; RBC 4.66 m/uL (4.30-5.90); RDW 14.2 % (11.5-15.5); WBC 12.5 k/uL (3.8-10.6)
[2018-02-18 04:30] LABS: Platelet Count 343 k/uL (150-450)
[2018-02-18 04:34] LABS: ALT 33 U/L (21-72); AST 27 U/L (17-59); Albumin 3.3 g/dL (3.5-5.0); Alkaline Phosphatase 118 U/L (38-126); Amylase 58 U/L (30-110); Anion Gap 9 mmol/L; Blood Urea Nitrogen 19 mg/dL (9-20); Calcium 9.3 mg/dL (8.4-10.2); Carbon Dioxide 24 mmol/L (22-30); Chloride 106 mmol/L (98-107); Glucose 87 mg/dL (74-99); Lipase 100 U/L (23-300); Sodium 139 mmol/L (137-145); Total Bilirubin 0.3 mg/dL (0.2-1.3); Total Protein 6.1 g/dL (6.3-8.2)
--- NOTE | 2018-02-18 06:02 | ED ---
Abdominal Pain HPI - General Chief Complaint: Abdominal Pain Stated Complaint: abd pain Time Seen by Provider: 02/18/18 02:49 Source: EMS Mode of arrival: EMS Limitations: no limitations - History of Present Illness MD Complaint: abdominal pain Onset/Timin -: days(s) Location: diffuse Migration to: no migration Severity: mild Quality: cramping Consistency: colicky Improves With: nothing Worsens With: nothing Associated Symptoms: denies other symptoms - Related Data Home Medications Medication Instructions Recorded Confirmed Ezetimibe [Zetia] 10 mg PO HS@2200 01/14/14 01/16/18 Metoprolol Tartrate [Lopressor] 50 mg PO DAILY@89901/14/14 01/16/18 amLODIPine BESYLATE [Norvasc] 10 mg PO DAILY@89901/14/14 01/16/18 Nitroglycerin Sl Tabs [Nitrostat] 0.4 mg SUBLINGUAL Q5M PRN 10/12/15 01/16/18 Acetaminophen [Tylenol Arthritis] 650 mg PO Q12H PRN 08/07/16 01/16/18 hydrOXYzine HCL [Atarax] 25 mg PO TID PRN 08/07/16 01/16/18 Aspirin 81 mg PO DAILY 11/13/17 01/16/18 traZODone HCL 50 mg PO HS 12/09/17 01/16/18 Ergocalciferol (Vitamin D2) 50,000 unit PO Q30D 01/16/18 01/16/18 [Vitamin D2] Ibuprofen [Motrin] 800 mg PO TID PRN 01/16/18 01/16/18 Melatonin 5 mg PO HS 01/16/18 01/16/18 Nystatin/Triamcin 1 applicate TOPICAL QID PRN 01/16/18 01/16/18 [Nystatin-Triamcinolone Cream] Pantoprazole [Protonix] 40 mg PO DAILY 01/16/18 01/16/18 Pravastatin Sodium [Pravachol] 80 mg PO HS 01/16/18 01/16/18 Sertraline HCl [Zoloft] 25 mg PO DAILY 01/16/18 01/16/18 predniSONE See Taper PO DAILY 01/16/18 01/16/18 Previous Rx's Medication Instructions Recorded Docusate [Colace] 100 mg PO BID #60 capsule 01/20/18 Enoxaparin [Lovenox] 40 mg SQ DAILY #14 syringe 01/20/18 HYDROcodone/APAP 5-325MG [[place] 1 tab PO Q4HR PRN #60 tab 01/20/18 5-325] Multivitamins, Thera [Multivitamin 1 each PO DAILY@1200 tab 01/20/18 (formulary)] Acetaminophen-Codeine 300-30mg 1 tab PO Q4H PRN #12 tablet 02/18/18 [Tylenol w/codeine #3] Allergies Allergy/AdvReac Type Severity Reaction Status Date / Time adhesive Allergy Rash/Hives Verified 02/18/18 02:39 latex Allergy Itching Verified 02/18/18 02:39 amitriptyline [From Elavil] AdvReac Nausea & Verified 02/18/18 02:39 Vomiting amitriptyline HCl AdvReac Nausea & Verified 02/18/18 02:39 [From Triavil 2-10] Vomiting doxepin HCl [From [place]] AdvReac Nausea & Verified 02/18/18 02:39 Vomiting haloperidol [From Haldol] AdvReac Nausea & Verified 02/18/18 02:39 Vomiting Penicillins AdvReac Nausea & Verified 02/18/18 02:39 Vomiting perphenazine AdvReac Nausea & Verified 02/18/18 02:39 [From Triavil 2-10] Vomiting sulfamethoxazole AdvReac Nausea & Verified 02/18/18 02:39 [From Bactrim] Vomiting trimethoprim [From Bactrim] AdvReac Nausea & Verified 02/18/18 02:39 Vomiting Review of Systems ROS Statement: Those systems with pertinent positive or pertinent negative responses have been documented in the HPI. ROS Other: All systems not noted in ROS Statement are negative. Constitutional: Denies: fever, chills Respiratory: Denies: cough, dyspnea Cardiovascular: Denies: chest pain, palpitations, edema Gastrointestinal: Reports: as per HPI, abdominal pain. Denies: nausea, vomiting , diarrhea Genitourinary: Denies: dysuria, hematuria, testicular pain Musculoskeletal: Denies: back pain Skin: Denies: rash Neurological: Denies: headache, weakness, numbness Past Medical History Past Medical History: Coronary Artery Disease (CAD), Hyperlipidemia, Hypertension, Memory Impairment, Myocardial Infarction ([place]), Rheumatoid Arthritis (RA), Skin Disorder Additional Past Medical History / Comment(s): PSORASIS, RECOVERING ALCOHOLIC ( 11 YRS) hx of esophageal stricture Last Myocardial Infarction Date:: 2009 History of Any Multi-Drug Resistant Organisms: None Reported Past Surgical History: Appendectomy, Cholecystectomy, Coronary Bypass/CABG, Heart Catheterization Additional Past Surgical History / Comment(s): 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 General Exam Limitations: no limitations General appearance: alert, in no apparent distress Head exam: Present: atraumatic, normocephalic Eye exam: Present: normal appearance. Absent: scleral icterus, conjunctival injection ENT exam: Present: normal oropharynx Respiratory exam: Present: normal lung sounds bilaterally. Absent: respiratory distress, wheezes, rales, rhonchi, stridor Cardiovascular Exam: Present: regular rate, normal rhythm, normal heart sounds. Absent: systolic murmur, diastolic murmur, rubs, gallop GI/Abdominal exam: Present: soft, tenderness (There is mild left-sided tenderness without rebound or guarding). Absent: distended, guarding, rebound, rigid, mass, pulsatile mass, hernia Extremities exam: Present: normal inspection, normal capillary refill. Absent: pedal edema, calf tenderness Back exam: Present: normal inspection. Absent: CVA tenderness (R), CVA tenderness (L) Neurological exam: Present: alert Skin exam: Present: warm, dry, intact, normal color. Absent: rash Course Vital Signs 02/18/18 02/18/18 02:36 06:19 Temperature 98.5 F Pulse Rate 70 68 Respiratory 18 17 Rate Blood Pressure 153/67 128/62 O2 Sat by Pulse 97 94 L Oximetry Medical Decision Making - Lab Data Result diagrams: 02/18/18 02:35 02/18/18 02:35 Lab Results 08/07/18 08/07/18 08/07/18 Range/Units 02:35 02:35 02:35 WBC 12.5 H (3.8-10.6) k/uL RBC 4.66 (4.30-5.90) m/uL Hgb 13.1 (13.0-17.5) gm/dL Hct 38.9 L (39.0-53.0) % MCV 83.3 (80.0-100.0) fL MCH 28.1 (25.0-35.0) pg MCHC 33.7 (31.0-37.0) g/dL RDW 14.2 (11.5-15.5) % Plt Count 343 D (150-450) k/uL Neutrophils % 74 % Lymphocytes % 12 % Monocytes % 9 % Eosinophils % 3 % Basophils % 1 % Neutrophils # 9.2 H (1.3-7.7) k/uL Lymphocytes # 1.5 (1.0-4.8) k/uL Monocytes # 1.1 H (0-1.0) k/uL Eosinophils # 0.3 (0-0.7) k/uL Basophils # 0.1 (0-0.2) k/uL Sodium 139 (137-145) mmol/L Potassium 4.0 (3.5-5.1) mmol/L Chloride 106 (98-107) mmol/L Carbon Dioxide 24 (22-30) mmol/L Anion Gap 9 mmol/L BUN 19 (9-20) mg/dL Creatinine 0.74 (0.66-1.25) mg/dL Est GFR (CKD-EPI)AfAm >90 (>60 ml/min/1.73 sqM) Est GFR (CKD-EPI)NonAf 90 (>60 ml/min/1.73 sqM) Glucose 87 (74-99) mg/dL Calcium 9.3 (8.4-10.2) mg/dL Total Bilirubin 0.3 (0.2-1.3) mg/dL AST 27 (17-59) U/L ALT 33 (21-72) U/L Alkaline Phosphatase 118 (38-126) U/L Total Protein 6.1 L (6.3-8.2) g/dL Albumin 3.3 L (3.5-5.0) g/dL Amylase 58 (30-110) U/L Lipase 100 (23-300) U/L Urine Color Light Yellow Urine Appearance Clear (Clear) Urine pH 6.5 (5.0-8.0) Ur Specific [place] 1.006 (1.001-1.035) Urine Protein Negative (Negative) Urine Glucose (UA) Negative (Negative) Urine Ketones Negative (Negative) Urine Blood Negative (Negative) Urine Nitrite Negative (Negative) Urine Bilirubin Negative (Negative) Urine Urobilinogen <2.0 (<2.0) mg/dL Ur Leukocyte Esterase Negative (Negative) Disposition Clinical Impression: Abdominal pain Disposition: HOME SELF-CARE Condition: Good Instructions: Abdominal Pain (ED) Prescriptions: Acetaminophen-Codeine 300-30mg [Tylenol w/codeine #3] 1 tab PO Q4H PRN #12 tablet PRN Reason: Pain Is patient prescribed a controlled substance at d/c from ED?: Yes When asked, does pt state using other controlled substances?: No If prescribed controlled substance>3 days was MAPS reviewed?: Prescribed <3 Days If Rx opioid, was Start Talking consent form obtained?: Yes Referrals: West Bateman MD [Primary Care Provider] - 1-2 days
[2018-02-18 06:20] VITALS: BP 128/62; PULSE 68; RESP 17
== END 2018-02-18 06:20 | disposition home or self-care (01) ==
LOC: EC 02:32
DX: R10.9 Unspecified abdominal pain (principal); I25.10 Atherosclerotic heart disease of native coronary artery without angina pectoris; E78.5 Hyperlipidemia, unspecified; I10 Essential (primary) hypertension; I25.2 Old myocardial infarction; M06.9 Rheumatoid arthritis, unspecified; F41.9 Anxiety disorder, unspecified; F25.1 Schizoaffective disorder, depressive type; F17.200 Nicotine dependence, unspecified, uncomplicated; Z90.49 Acquired absence of other specified parts of digestive tract; Z95.1 Presence of aortocoronary bypass graft; Z95.818 Presence of other cardiac implants and grafts; Z79.82 Long term (current) use of aspirin; Z79.52 Long term (current) use of systemic steroids; Z79.899 Other long term (current) drug therapy; Z91.048 Other nonmedicinal substance allergy status; Z91.040 Latex allergy status; Z88.8 Allergy status to other drugs, medicaments and biological substances; Z88.0 Allergy status to penicillin; Z88.2 Allergy status to sulfonamides
CPT/HCPCS: 99285; 96374; 96375; 36415; 80053; 82150; 83690; 85025; 81003; 74176; J2270; J2405

== ENCOUNTER 2018-03-21 12:30 | Inpatient (IN) | payer MEDICARE ==
[2018-03-24 11:07] VITALS: BMI 23.1
[2018-03-28] MEDS ORDERED: ceFAZolin IN SWFI 2 GM/20 ML SYRINGE IVP ONE (05:00)
[2018-03-28] MEDS ORDERED: SCOPOLAMINE 1.5MG/72HR PATCH TRANSDERM ONE (06:39)
[2018-03-28] MEDS ORDERED: LIDOCAINE 1% 20 ML VIAL (10MG/ML) FOR IV START INTRADERMA PRN (06:39)
[2018-03-28] MEDS ORDERED: HYDROmorphone 0.5 MG/0.5 ML SYRINGE IVP PRN (06:39)
[2018-03-28] MEDS ORDERED: DEXAMETHASONE SOD PHOSPHATE 10 MG/ML 1 ML VIAL IV ONE (06:39)
[2018-03-28] MEDS ORDERED: ONDANSETRON 4 MG/2 ML VIAL IVP ONE (06:39)
[2018-03-28 13:18] LABS: Glucose,Whole Blood 83 mg/dL (75-99)
[2018-03-28] MEDS: LACTATED RINGERS 1,000 ML IV SCH (13:19)
[2018-03-28 13:29] LABS: HCT 45.4 % (39.0-53.0); HGB 14.8 gm/dL (13.0-17.5); MCH 27.4 pg (25.0-35.0); MCHC 32.6 g/dL (31.0-37.0); Mean Platelet Volume 7.6; Platelet Count 294 k/uL (150-450); WBC 15.4 k/uL (3.8-10.6)
[2018-03-28 13:48] LABS: Band Neutrophils % 3 %; Eosinophils # (M) 0.31 k/uL (0-0.7); Lymphocytes # (M) 2.93 k/uL (1.0-4.8); Metamyelocytes # (M) 1.23 k/uL (0); Metamyelocytes % 8 %; Monocytes # (M) 1.39 k/uL (0-1.0); Myelocytes # (M) 0.92 k/uL (0); Myelocytes % 6 %; Neutrophils % (M) 56 %; Nucleated Red Blood Cells 0 /100 WBC (0-0); Total Cells Counted 200
[2018-03-28] MEDS ORDERED: SUCCINYLCHOLINE CHLORIDE 100 MG/5 ML SYR IV ONE (15:47)
[2018-03-28] MEDS ORDERED: ePHEDrine SULFATE/0.9% NACL/PF 50 MG/5 ML SYRINGE IV ONE (15:47)
[2018-03-28] MEDS ORDERED: fentaNYL (PF) 50 MCG/ML 2 ML AMP ONE (15:47)
[2018-03-28] MEDS ORDERED: PROPOFOL 10 MG/ML 20 ML VIAL IV ONE (15:47)
[2018-03-28] MEDS ORDERED: LIDOCAINE 1% INJ 10MG/ML (20 ML MDV) ONE (15:47)
--- NOTE | 2018-03-28 16:38 | P.OP ---
Date of Procedure: 03/28/18 Preoperative Diagnosis: Left nondisplaced valgus impacted femoral neck fracture Postoperative Diagnosis: Same Procedure(s) Performed: Hardware removal left hip and reinsertion of in situ screws Anesthesia: JANEA Surgeon: Shaq Davila Dairy Helper #1: Yuan Zavaleta IV fluids (ml): 400 Pathology: none sent Condition: stable Indications for Procedure: The patient is a 77-year-old male who previously underwent in situ screw fixation for a nondisplaced femoral neck fracture. During the postoperative period there is slight settling this fracture and one of the screws appeared to be intra-articular. I discussed the x-ray findings with the patient and his sister. I recommended exchanging the screws for smaller screws to prevent damage to the joint surface. We discussed the potential risks and competitions of surgery including but not limited to risk of anesthesia, risk of infection, risk of wound healing problems, risk of intraoperative fracture, risk of postoperative fracture, risk of post operative subtrochanteric fracture, risk of arthritis, risk of need for further surgery, DVT, PE and possibly loss of life or limb. The patient and his sister understand this and agreed to go forward with surgery. He provided his consent for the above procedure. Description of Procedure: The patient was met in preoperative holding and the correct left hip was marked with my initials. I reviewed the consent form with the patient and all of his questions were answered. The patient was then brought back to the operating room. A general anesthetic was administered on the gurney in the patient was then transferred onto a fracture table. He was secured to the fracture table with a peroneal post and his left leg was placed in a boot and the right leg was placed in a well leg mi. Fluoroscopy was brought in to verify that there had been no interval displacement. The fracture appeared stable. At this point the left leg was prepped and draped in standard sterile fashion. Prior to doing surgery timeout was performed identifying the correct patient, operative extremity, and procedure. I began by making an incision directly over the scar on the lateral aspect of the hip. Dissection was carried down to the screws. K wires were placed in all 3 screws. The screws were sequentially removed and new screws 5 mm shorter were reinserted over the K wires. Final fluoroscopic images showed no interval displacement of the femoral neck fracture and there was no evidence of intra- articular hardware. The wound was then copiously irrigated and closed in layers. The patient was awoken from his anesthetic, transferred to a gurney, and brought to PACU without the procedure well. Plan: The patient is going to be admitted overnight for 2 doses of antibiotics and a physical therapy consultation. He is to remain toe-touch weightbearing for an additional 2 weeks on his left leg. He will follow-up in 2 weeks for updated x-rays of the hip and suture removal.
[2018-03-28] MEDS ORDERED: DIAZEPAM 5 MG TAB PO PRN (16:40)
[2018-03-28] MEDS ORDERED: TEMAZEPAM 15 MG CAP PO PRN (16:40)
[2018-03-28] MEDS ORDERED: traMADol 50 MG TAB PO PRN (16:40)
[2018-03-28] MEDS ORDERED: ACETAMINOPHEN TAB 325 MG TAB PO PRN (16:40)
[2018-03-28] MEDS ORDERED: hydrOXYzine PAMOATE 25 MG CAP PO PRN (16:40)
[2018-03-28] MEDS ORDERED: HYDROmorphone 1 MG/ML 1 ML SYRINGE IVP PRN ×3 (16:40)
[2018-03-28] MEDS ORDERED: NALOXONE 0.4 MG/ML 1 ML VIAL IV PRN (16:40)
[2018-03-28] MEDS ORDERED: MAGNESIUM HYDROXIDE 2,400 MG/10 ML CUP PO PRN (16:40)
[2018-03-28] MEDS ORDERED: HYDROcodone/APAP 5-325MG 1 EACH TAB PO PRN (16:40)
[2018-03-28] MEDS ORDERED: ONDANSETRON 4 MG/2 ML VIAL IVP PRN (16:40)
[2018-03-28] MEDS ORDERED: NITROGLYCERIN SL TABS 0.4 MG TAB SUBLINGUAL PRN (17:42)
[2018-03-28] MEDS ORDERED: NYSTAT-TRIAMCIN 100,000-0.1 UNIT/GM-% CREAM 30 GM TUBE TOPICAL PRN (17:42)
[2018-03-28] MEDS ORDERED: TRIAMCINOLONE 0.1% CREAM 80 GM TUBE TOPICAL PRN (17:47)
[2018-03-28] MEDS ORDERED: NYSTATIN 100,000UNIT/GM CREAM 30 GM TUBE TOPICAL PRN (17:48)
[2018-03-28] MEDS: HYDROcodone/APAP 5-325MG 1 EACH TAB PO PRN (18:00)
[2018-03-28] MEDS ORDERED: ERGOCALCIFEROL 50,000 UNIT CAP PO SCH (18:00)
[2018-03-28] MEDS: MELATONIN 5 MG TABLET PO SCH (20:23)
[2018-03-28] MEDS: EZETIMIBE 10 MG TAB PO SCH (20:24)
[2018-03-28] MEDS: SENNOSIDES-DOCUSATE SODIUM 1 EACH TAB PO SCH (20:24)
[2018-03-28] MEDS: ceFAZolin IN SWFI 2 GM/20 ML SYRINGE IVP SCH (23:57)
[2018-03-29] MEDS: HYDROcodone/APAP 5-325MG 1 EACH TAB PO PRN ×2 (04:43→19:56)
--- NOTE | 2018-03-29 05:53 | FL ---
FLUOROSCOPY 40 seconds of fluoroscopy time were utilized during Ortega pinning of the left hip. 5 images documen t the procedure.
[2018-03-29 07:20] LABS: Basophils # (A) 0.1 k/uL (0-0.2); Basophils % (A) 0 %; Eosinophils % (A) 0 %; HCT 39.6 % (39.0-53.0); HGB 12.9 gm/dL (13.0-17.5); Lymphocytes # (A) 0.7 k/uL (1.0-4.8); Lymphocytes % (A) 4 %; MCH 27.6 pg (25.0-35.0); MCHC 32.6 g/dL (31.0-37.0); MCV 84.6 fL (80.0-100.0); Mean Platelet Volume 7.9; Monocytes % (A) 6 %; Neutrophils # (A) 14.6 k/uL (1.3-7.7); Neutrophils % (A) 89 %; Platelet Count 254 k/uL (150-450); RBC 4.68 m/uL (4.30-5.90); WBC 16.5 k/uL (3.8-10.6)
[2018-03-29] MEDS: LACTATED RINGERS 1,000 ML IV SCH (08:06)
[2018-03-29] MEDS: amLODIPine 10 MG TAB PO SCH (08:09)
[2018-03-29] MEDS: METOPROLOL TARTRATE 50 MG TAB PO SCH (08:09)
[2018-03-29] MEDS: predniSONE 10 MG TAB PO SCH (08:09)
[2018-03-29] MEDS: ENOXAPARIN 30 MG/0.3 ML SYRINGE SQ SCH ×2 (08:09→19:56)
[2018-03-29] MEDS: ceFAZolin IN SWFI 2 GM/20 ML SYRINGE IVP SCH (08:51)
--- NOTE | 2018-03-29 10:51 | P.PN ---
Progress Note - Text Progress Note Date: 03/29/18 Patient is a pleasant 77 showed male who is seen and examined the bedside for follow-up evaluation after undergoing removal of left hip hardware with reinsertion of in situ screws due to left nondisplaced valgus impacted femoral neck fracture performed yesterday, 03/28/2018. Postsurgically, patient's left hip pain has been adequately controlled. He is toe-touch weightbearing on the left lower extremity. He has not been out of bed yet this morning. He has no new complaints this morning. He is most likely planning for discharge to a rehabilitation facility as early as 03/31/2018. He is eating and voiding without difficulty Physical Exam Intramedullary Rodding for Intertrochanteric Fracture: Status post surgical day number 1 Patient is examined lying in bed Patient is awake and alert, and oriented 3 Vital signs stable Good chest excursion with deep inspiration and expiration Abdomen soft nontender No signs or symptoms of DVT; no calf pain Dressing of the left hip is clean, dry, and intact; no erythema, purulence, or signs of infection Full range of motion of ankles bilaterally Dorsiflexion, plantarflexion, and extensor hallucis longus positive sustained bilaterally Neurovascularly intact bilateral lower extremities Capillary refill less than 2 seconds bilateral lower extremities Assessment: Status post removal of left hip hardware with reinsertion of in situ screws due to left nondisplaced valgus impacted femoral neck fracture Plan: 1. Patient to remain toe-touch weightbearing on the left lower extremity; patient may work with physical therapy to increase mobility and ambulation 2. Keep dressing over the left hip clean, dry, and intact 3. Continue pain control [place] 5/325 mg and Dilaudid as prescribed as needed for relief of his symptoms 4. Continue with anticoagulation therapy with Lovenox 30 mg subcu every 12 hours 5. Medicine to continue following the patient for their other medical diagnosis 6. We'll continue to follow the patient closely; depending on the patient's progress, we may plan for discharge as early as 03/31/2018, to a rehabilitation facility 7. Patient can follow-up with Dr. Davila at [facility] in 2-3 weeks following discharge
[2018-03-29] MEDS: MULTIVITAMINS, THERA 1 EACH TAB PO SCH (12:23)
[2018-03-29] MEDS: MELATONIN 5 MG TABLET PO SCH (19:55)
[2018-03-29] MEDS: EZETIMIBE 10 MG TAB PO SCH (19:55)
[2018-03-29] MEDS: SENNOSIDES-DOCUSATE SODIUM 1 EACH TAB PO SCH (19:55)
--- NOTE | 2018-03-29 21:20 | CONS ---
CONSULTATION CHIEF COMPLAINT: Left hip fracture and arthritis. HISTORY OF PRESENT ILLNESS: This gentleman was brought in for an elective hip replacement. He fell some weeks ago. He also has a history of COPD, major depression, and coronary artery disease. REVIEW OF SYSTEMS: He has had no neurologic problems, difficulty with vision or hearing, neurologic deficits, chest pain, shortness of breath, cough, hemoptysis, abdominal pain, vomiting and diarrhea, melena, hematochezia, jaundice, hematuria, frequency, urgency, etc. PAST MEDICAL HISTORY: Past medical history, family history personal and social history are all otherwise unremarkable and noncontributory and unchanged. PHYSICAL EXAMINATION: Blood pressure is 145/86 with a pulse of 80, respirations of 29. He is afebrile. GENERAL: He appeared to be well developed, well nourished, no acute distress. Skin color is normal skin is warm, dry. Lymph nodes not enlarged. Head, ears, eyes, nose, mouth, and throat were normal. Neck veins not distended. Chest is clear. Cardiac exam is normal. Abdomen is soft, nontender. EXTREMITIES: Normal. NEUROLOGICAL: Intact. IMPRESSION: 1. Fracture of the left hip. 2. Osteoarthritis. 3. . MMODL / IJN: [id number] /
[2018-03-30 09:16] VITALS: RESP 16
[2018-03-30] MEDS: LACTATED RINGERS 1,000 ML IV SCH (09:20)
[2018-03-30] MEDS: ENOXAPARIN 30 MG/0.3 ML SYRINGE SQ SCH ×2 (09:23→20:43)
[2018-03-30] MEDS: amLODIPine 10 MG TAB PO SCH (09:24)
[2018-03-30] MEDS: predniSONE 10 MG TAB PO SCH (09:24)
[2018-03-30] MEDS: HYDROcodone/APAP 5-325MG 1 EACH TAB PO PRN (09:30)
--- NOTE | 2018-03-30 09:56 | P.PN ---
Subjective Progress Note Date: 03/30/18 The patient is doing well this morning. His only complaint is mild discomfort in the left hip extending down into the thigh. Objective - Vital Signs Vital signs: Vital Signs Temp 97.6 F 03/30/18 09:14 Pulse 56 L 03/30/18 09:14 Resp 16 03/30/18 09:14 BP 131/61 03/30/18 09:14 Pulse Ox 96 03/30/18 09:14 Intake & Output 03/29/18 03/30/18 03/30/18 18:59 06:59 18:59 Intake Total 600 180 Output Total 540 Balance -540 600 180 Intake: Oral 180 Other 600 Output: Urine 540 Other: # Voids 2 3 - Exam The patient is resting comfortably in bed. On exam of the left leg there are clean dressings in place. The thigh is soft. He has minimal tenderness over the thigh and no pain with passive range of motion of the hip. - Labs CBC & Chem 7: 03/29/18 06:32 Assessment and Plan Plan: The patient is doing well. He is going to continue toe-touch weightbearing on the left hip. He will likely need a short stay in subacute rehab.
[2018-03-30] MEDS: METOPROLOL TARTRATE 50 MG TAB PO SCH (11:59)
[2018-03-30] MEDS: MULTIVITAMINS, THERA 1 EACH TAB PO SCH (13:17)
[2018-03-30] MEDS: EZETIMIBE 10 MG TAB PO SCH (20:43)
[2018-03-30] MEDS: SENNOSIDES-DOCUSATE SODIUM 1 EACH TAB PO SCH (20:43)
[2018-03-30] MEDS: MELATONIN 5 MG TABLET PO SCH (20:43)
--- NOTE | 2018-03-30 23:41 | PN ---
PROGRESS NOTE CHIEF COMPLAINT: Repair left hip fracture. HISTORY OF PRESENT ILLNESS: This gentleman is doing well. He has had no fever and chills, cough, shortness of breath or chest pain, etc. PHYSICAL EXAM: Chest is clear. Cardiac exam is normal. Abdomen is soft, nontender. Bowel sounds are normal. IMPRESSION: 1. Status post left hip repair. 2. Coronary artery disease. PLAN: He will go to rehab in the next day or two. MMKELSEYL / BRETTN: [id number] /
[2018-03-31] MEDS: LACTATED RINGERS 1,000 ML IV SCH (07:49)
[2018-03-31] MEDS: amLODIPine 10 MG TAB PO SCH (07:54)
[2018-03-31] MEDS: predniSONE 10 MG TAB PO SCH (07:54)
[2018-03-31] MEDS: METOPROLOL TARTRATE 50 MG TAB PO SCH (07:54)
[2018-03-31] MEDS: ENOXAPARIN 30 MG/0.3 ML SYRINGE SQ SCH (07:54)
[2018-03-31 08:23] LABS: HCT 41.1 % (39.0-53.0); HGB 13.5 gm/dL (13.0-17.5); MCHC 32.9 g/dL (31.0-37.0); MCV 84.9 fL (80.0-100.0); Mean Platelet Volume 8.1; Platelet Count 239 k/uL (150-450); RBC 4.84 m/uL (4.30-5.90); RDW 14.1 % (11.5-15.5); WBC 10.7 k/uL (3.8-10.6)
[2018-03-31 08:57] LABS: Band Neutrophils % 2 %; Eosinophils # (M) 0.21 k/uL (0-0.7); Lymphocytes # (M) 2.46 k/uL (1.0-4.8); Metamyelocytes # (M) 0.43 k/uL (0); Metamyelocytes % 4 %; Monocytes # (M) 1.18 k/uL (0-1.0); Myelocytes # (M) 0.11 k/uL (0); Myelocytes % 1 %; Neutrophils % (M) 59 %; Nucleated Red Blood Cells 0 /100 WBC (0-0); Total Cells Counted 200
--- NOTE | 2018-03-31 09:49 | P.DS ---
Providers Date of admission: 03/28/18 12:11 Expected date of discharge: 03/31/18 Attending physician: Shaq Davila Consults: 03/28/18 16:40 Consult Physician Routine Consulting Provider: West Bateman Consult Reason/Comments: post op medical management Do you want consulting provider notified?: Yes Primary care physician: West Bateman - Discharge Diagnosis(es) (1) Hip fracture, left Patient was admitted to the OR on 03/27/2018 to undergo a screw exchange for subcapital hip fracture. He desired to proceed with elective surgery after given informed consent. He underwent the above procedure which he tolerated well without complication. Postoperative hospital course has remained without complication. On day of discharge he is afebrile, vital signs stable, labs within acceptable ranges, tolerating by mouth meds and diet, voiding without difficulty, positive flatus, denies abdominal pain or calf pain, pain is controlled on oral pain medication and has no new complaints. Wound is benign, neurovascular status is intact, calf is soft and nontender, abdomen soft and nontender. Review of systems is negative for numbness, tingling, fever, chills , chest pain, shortness breath, nausea, vomiting, dizziness, headaches, slurred speech or other Current Visit: Yes Status: Acute Priority: Medium Procedures: Hardware exchange left hip Patient Condition at Discharge: Good Plan - Discharge Summary Discharge Rx Participant: Yes New Discharge Prescriptions: No Action amLODIPine BESYLATE [Norvasc] 10 mg PO DAILY Metoprolol Tartrate [Lopressor] 50 mg PO DAILY Ezetimibe [Zetia] 10 mg PO HS Nitroglycerin Sl Tabs [Nitrostat] 0.4 mg SUBLINGUAL Q5M PRN PRN Reason: Chest Pain Acetaminophen [Tylenol Arthritis] 650 mg PO Q12H PRN PRN Reason: Pain Aspirin 81 mg PO DAILY Ergocalciferol (Vitamin D2) [Vitamin D2] 50,000 unit PO Q30D Nystatin/Triamcin [Nystatin-Triamcinolone Cream] 1 applic TOPICAL QID PRN PRN Reason: Skin Irritation Melatonin 5 mg PO HS Ibuprofen [Motrin] 800 mg PO TID PRN PRN Reason: Pain predniSONE See Taper PO DAILY HYDROcodone/APAP 5-325MG [[place] 5-325] 1 tab PO Q4HR PRN #60 tab PRN Reason: Pain Acetaminophen-Codeine 300-30mg [Tylenol w/codeine #3] 1 tab PO Q4H PRN #12 tablet PRN Reason: Pain Discharge Medication List Ezetimibe [Zetia] 10 mg PO HS 01/14/14 [History] Metoprolol Tartrate [Lopressor] 50 mg PO DAILY 01/14/14 [History] amLODIPine BESYLATE [Norvasc] 10 mg PO DAILY 01/14/14 [History] Nitroglycerin Sl Tabs [Nitrostat] 0.4 mg SUBLINGUAL Q5M PRN 10/12/15 [History] Acetaminophen [Tylenol Arthritis] 650 mg PO Q12H PRN 08/07/16 [History] Aspirin 81 mg PO DAILY 11/13/17 [History] Ergocalciferol (Vitamin D2) [Vitamin D2] 50,000 unit PO Q30D 01/16/18 [History] Ibuprofen [Motrin] 800 mg PO TID PRN 01/16/18 [History] Melatonin 5 mg PO HS 01/16/18 [History] Nystatin/Triamcin [Nystatin-Triamcinolone Cream] 1 applic TOPICAL QID PRN [History] predniSONE See Taper PO DAILY 01/16/18 [History] HYDROcodone/APAP 5-325MG [[place] 5-325] 1 tab PO Q4HR PRN #60 tab 01/20/18 [Rx] Acetaminophen-Codeine 300-30mg [Tylenol w/codeine #3] 1 tab PO Q4H PRN #12 tablet 02/18/18 [Rx] Follow up Appointment(s)/Referral(s): Shaq Davila MD [Medical Doctor] - 04/14/18 10:00 am ( ) Activity/Diet/Wound Care/Special Instructions: 1. Toe-touch weightbearing left lower extremity 2. May apply ice over the dressing left hip comfort support as needed 3. Keep dressing over the left hip clean, dry, and intact 4. May shower without a dressing if the dressing remains clean, dry, and intact for 3 days 5. Take medications as prescribed Discharge Disposition: TRANSFER TO SNF/ECF
[2018-03-31] MEDS: MULTIVITAMINS, THERA 1 EACH TAB PO SCH (12:46)
[2018-03-31 14:25] VITALS: BP 121/50; PULSE 50; TEMP 98.1
--- NOTE | 2018-04-01 16:46 | PN ---
PROGRESS NOTE DATE OF SERVICE: 03/31/2018. CHIEF COMPLAINT: Status post repair of left hip fracture. HISTORY OF PRESENT ILLNESS: This gentleman is doing well and may be going to rehab or home today. PHYSICAL EXAM: He is awake and alert. Chest is clear. Cardiac exam is normal. Abdomen is soft, nontender. He is afebrile. IMPRESSION: 1. Status post left hip repair. 2. Coronary artery disease. PLAN: He will probably be discharged today. MMODL / IJN: [id number] /
--- NOTE | 2018-04-01 18:01 | PN ---
PROGRESS NOTE DATE OF SERVICE: 03/29/2018 CHIEF COMPLAINT: Left hip fracture. HISTORY OF PRESENT ILLNESS: This gentleman is doing well. He has had no fever, chills, chest pain, cough, confusion, etc. PHYSICAL EXAM: Color is good. Chest is clear and cardiac is normal and the abdomen is soft, nontender. IMPRESSION: Left hip fracture. PLAN: No change in program at this time. MMODL / IJN: [id number] /
== END 2018-03-31 18:30 | disposition home health service (06) | DRG 482 ==
LOC: 2ORMAIN 03-28 12:11 → 3SUR 03-28 17:14
PROVIDERS: ADMIT Orthopaedic Surgery; ATTEND Orthopaedic Surgery
PROC: 0QP704Z Removal of Internal Fixation Device from Left Upper Femur, Open Approach (ICD-10-PCS; principal; 2018-03-28 14:15)
PROC: 0SHB04Z Insertion of Internal Fixation Device into Left Hip Joint, Open Approach (ICD-10-PCS; principal; 2018-03-28 14:15)
DX: T84.125A Displacement of internal fixation device of left femur, initial encounter (principal); Y79.2 Prosthetic and other implants, materials and accessory orthopedic devices associated with adverse incidents; I25.10 Atherosclerotic heart disease of native coronary artery without angina pectoris; J44.9 Chronic obstructive pulmonary disease, unspecified; M19.90 Unspecified osteoarthritis, unspecified site; Z79.82 Long term (current) use of aspirin; Z79.899 Other long term (current) drug therapy; I10 Essential (primary) hypertension; F32.9 Major depressive disorder, single episode, unspecified; Z88.1 Allergy status to other antibiotic agents; Z91.040 Latex allergy status; Z88.0 Allergy status to penicillin; Z91.018 Allergy to other foods; Z95.1 Presence of aortocoronary bypass graft; Z98.49 Cataract extraction status, unspecified eye; Z82.49 Family history of ischemic heart disease and other diseases of the circulatory system
CPT/HCPCS: 73502; 85025

== ENCOUNTER 2018-03-22 09:23 | Emergency (ER) | payer MEDICARE ==
[2018-03-22 09:58] VITALS: BP 111/60; PULSE 52; RESP 18; TEMP 97.7
[2018-03-22] MEDS ORDERED: ACET/COD 300 MG/30 MG STARTER PACK 6 TAB BTL PO STA (10:06)
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
== END 2018-03-22 10:15 | disposition home or self-care (01) ==
LOC: EC 09:23
DX: M06.9 Rheumatoid arthritis, unspecified (principal); I25.10 Atherosclerotic heart disease of native coronary artery without angina pectoris; E78.5 Hyperlipidemia, unspecified; I10 Essential (primary) hypertension; I25.2 Old myocardial infarction; F20.9 Schizophrenia, unspecified; F32.9 Major depressive disorder, single episode, unspecified; F41.9 Anxiety disorder, unspecified; F17.200 Nicotine dependence, unspecified, uncomplicated; Z79.82 Long term (current) use of aspirin; Z79.52 Long term (current) use of systemic steroids; Z79.899 Other long term (current) drug therapy; Z88.0 Allergy status to penicillin; Z91.040 Latex allergy status; Z91.048 Other nonmedicinal substance allergy status; Z88.2 Allergy status to sulfonamides; Z88.8 Allergy status to other drugs, medicaments and biological substances; Z95.1 Presence of aortocoronary bypass graft; Z95.818 Presence of other cardiac implants and grafts
CPT/HCPCS: 99283

== ENCOUNTER 2018-04-15 09:34 | Emergency (ER) | payer MEDICARE ==
[2018-04-15 09:53] VITALS: RESP 18
--- NOTE | 2018-04-15 10:22 | ED ---
Upper Extremity HPI - General Chief Complaint: Extremity Injury, Upper Stated Complaint: LT SHOULDER PAIN Time Seen by Provider: 04/15/18 10:07 Source: patient, RN notes reviewed, old records reviewed Mode of arrival: ambulatory Limitations: no limitations - History of Present Illness Initial Comments: 77-year-old male to the emergency department presents today to plan of left shoulder pain. He reports over the past week he's had a dull achy pain with the left shoulder. Seems to be worse with range of motion. He has a past medical history significant of rheumatoid arthritis, as well as cardiac history including triple bypass. Patient florence had triple bypass 8 years ago. He denies any specific chest pain or shortness of breath. He occasionally feels like the pain in the left shoulder shoots down the entire arm to the hand. Patient states that he has had right hip surgery earlier this month. She states been healing well from the surgery. Patient denies any fevers or chills. Denies any nausea or vomiting or dizziness. - Related Data Home Medications Medication Instructions Recorded Confirmed Ezetimibe [Zetia] 10 mg PO HS 01/14/14 04/15/18 Metoprolol Tartrate [Lopressor] 50 mg PO DAILY 01/14/14 04/15/18 amLODIPine BESYLATE [Norvasc] 10 mg PO DAILY 01/14/14 04/15/18 Nitroglycerin Sl Tabs [Nitrostat] 0.4 mg SUBLINGUAL Q5M PRN 10/12/15 04/15/18 Ergocalciferol (Vitamin D2) 50,000 unit PO Q30D 01/16/18 04/15/18 [Vitamin D2] Melatonin 5 mg PO HS 01/16/18 04/15/18 Nystatin/Triamcin 1 applic TOPICAL QID PRN 01/16/18 04/15/18 [Nystatin-Triamcinolone Cream] Previous Rx's Medication Instructions Recorded Aspirin 325 mg PO BID #60 tab 03/31/18 HYDROcodone/APAP 5-325MG [[place] 1 tab PO Q4HR PRN #42 tab 03/31/18 5-325] methylPREDNISolone Dose Pack 4 mg PO DIRECTED #21 package 04/15/18 [Medrol Dose Pack] Allergies Allergy/AdvReac Type Severity Reaction Status Date / Time adhesive Allergy Rash/Hives Verified 04/15/18 10:10 latex Allergy Itching Verified 04/15/18 10:10 amitriptyline [From Elavil] AdvReac Nausea & Verified 04/15/18 10:10 Vomiting amitriptyline HCl AdvReac Nausea & Verified 04/15/18 10:10 [From Triavil 2-10] Vomiting doxepin HCl [From Sinequan] AdvReac Nausea & Verified 04/15/18 10:10 Vomiting haloperidol [From Haldol] AdvReac Nausea & Verified 04/15/18 10:10 Vomiting Penicillins AdvReac Nausea & Verified 04/15/18 10:10 Vomiting perphenazine AdvReac Nausea & Verified 04/15/18 10:10 [From Triavil 2-10] Vomiting sulfamethoxazole AdvReac Nausea & Verified 04/15/18 10:10 [From Bactrim] Vomiting trimethoprim [From Bactrim] AdvReac Nausea & Verified 04/15/18 10:10 Vomiting walnut AdvReac Verified 04/15/18 10:11 Review of Systems ROS Statement: Those systems with pertinent positive or pertinent negative responses have been documented in the HPI. ROS Other: All systems not noted in ROS Statement are negative. 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 EGD WITH DILATION Past Anesthesia/Blood Transfusion Reactions: No Reported Reaction Past Psychological History: Anxiety, Depression, Schizoaffective Disorder, Schizophrenia Smoking Status: Current every day smoker Past Alcohol Use History: None Reported Past Drug Use History: None Reported - Past Family History Father Family Medical History: Cancer Additional Family Medical History / Comment(s): Father had prostate cancer. General Exam - General Exam Comments Initial Comments: 77-year-old male. Alert and oriented. Limitations: no limitations General appearance: alert, in no apparent distress Head exam: Present: atraumatic, normocephalic, normal inspection Eye exam: Present: normal appearance, PERRL, EOMI. Absent: scleral icterus, conjunctival injection, periorbital swelling ENT exam: Present: normal exam, mucous membranes moist Neck exam: Present: normal inspection. Absent: tenderness, meningismus, lymphadenopathy Respiratory exam: Present: normal lung sounds bilaterally. Absent: respiratory distress, wheezes, rales, rhonchi, stridor Cardiovascular Exam: Present: regular rate, normal rhythm, normal heart sounds. Absent: systolic murmur, diastolic murmur, rubs, gallop, clicks GI/Abdominal exam: Present: soft, normal bowel sounds. Absent: distended, tenderness, guarding, rebound, rigid Extremities exam: Present: normal inspection, full ROM, normal capillary refill. Absent: tenderness, pedal edema, joint swelling, calf tenderness Left Shoulder Exam: Present: normal inspection, full ROM, tenderness (slight tenderness over L trapezius) Upper Arm exam: Present: normal inspection, full ROM Elbow exam: Present: normal inspection, full ROM Forearm Wrist exam: Present: normal inspection, full ROM Neuro motor exam: Present: wrist extension intact, thumb opposition intact, thumb IP flexion intact, thumb adduction intact, fingers 2-5 abduction intact Back exam: Present: normal inspection Neurological exam: Present: alert, oriented X3, CN II-XII intact Psychiatric exam: Present: normal affect, normal mood Skin exam: Present: warm, dry, intact, normal color. Absent: rash Course Vital Signs 04/15/18 09:48 Temperature 98.1 F Pulse Rate 60 Respiratory 18 Rate Blood Pressure 108/61 O2 Sat by Pulse 96 Oximetry Medical Decision Making - Medical Decision Making 77-year-old male presents restarted today complaining of left shoulder pain. States he worsens range of motion. Denies a specific chest pain shortness breath. He does see the pain radiates onto the arm occasionally. He has a history of RA and is concerned that it may exacerbate his RA. At this time Patient is recently healing from right hip surgery. This was 3 weeks ago. Patient EKG performed today was negative for any acute process. Normal troponin. Not concerned for any cardiac etiology for left shoulder pain as the Patient. Dr. montejo with a normal troponin and the EKG has no acute changes. I discussed that they have close follow-up with primary care physician. I discussed we'll start the Patient on antiinflammatory medication. Discussed return parameters including any specific chest features breath or fevers or chills. Patient received treatment plan will comply. Return parameters were discussed. - Lab Data Result diagrams: 04/15/18 10:25 04/15/18 10:25 Lab Results 04/15/18 04/15/18 04/15/18 Range/Units 10:25 10:25 10:25 WBC 6.8 (3.8-10.6) k/uL RBC 4.77 (4.30-5.90) m/uL Hgb 13.3 (13.0-17.5) gm/dL Hct 39.6 (39.0-53.0) % MCV 83.1 (80.0-100.0) fL MCH 27.8 (25.0-35.0) pg MCHC 33.5 (31.0-37.0) g/dL RDW 13.5 (11.5-15.5) % Plt Count 259 (150-450) k/uL Neutrophils % 68 % Lymphocytes % 14 % Monocytes % 9 % Eosinophils % 6 % Basophils % 1 % Neutrophils # 4.6 (1.3-7.7) k/uL Lymphocytes # 1.0 (1.0-4.8) k/uL Monocytes # 0.6 (0-1.0) k/uL Eosinophils # 0.4 (0-0.7) k/uL Basophils # 0.1 (0-0.2) k/uL PT 10.3 (9.0-12.0) sec INR 1.0 (<1.2) APTT 25.0 (22.0-30.0) sec Sodium 140 (137-145) mmol/L Potassium 4.3 (3.5-5.1) mmol/L Chloride 107 (98-107) mmol/L Carbon Dioxide 25 (22-30) mmol/L Anion Gap 8 mmol/L BUN 11 (9-20) mg/dL Creatinine 0.78 (0.66-1.25) mg/dL Est GFR (CKD-EPI)AfAm >90 (>60 ml/min/1.73 sqM) Est GFR (CKD-EPI)NonAf 88 (>60 ml/min/1.73 sqM) Glucose 95 (74-99) mg/dL Calcium 9.3 (8.4-10.2) mg/dL Total Bilirubin 0.4 (0.2-1.3) mg/dL AST 16 L (17-59) U/L ALT 20 L (21-72) U/L Alkaline Phosphatase 110 (38-126) U/L Troponin I (0.000-0.034) ng/mL Total Protein 6.2 L (6.3-8.2) g/dL Albumin 3.3 L (3.5-5.0) g/dL 04/15/18 Range/Units 10:25 WBC (3.8-10.6) k/uL RBC (4.30-5.90) m/uL Hgb (13.0-17.5) gm/dL Hct (39.0-53.0) % MCV (80.0-100.0) fL MCH (25.0-35.0) pg MCHC (31.0-37.0) g/dL RDW (11.5-15.5) % Plt Count (150-450) k/uL Neutrophils % % Lymphocytes % % Monocytes % % Eosinophils % % Basophils % % Neutrophils # (1.3-7.7) k/uL Lymphocytes # (1.0-4.8) k/uL Monocytes # (0-1.0) k/uL Eosinophils # (0-0.7) k/uL Basophils # (0-0.2) k/uL PT (9.0-12.0) sec INR (<1.2) APTT (22.0-30.0) sec Sodium (137-145) mmol/L Potassium (3.5-5.1) mmol/L Chloride (98-107) mmol/L Carbon Dioxide (22-30) mmol/L Anion Gap mmol/L BUN (9-20) mg/dL Creatinine (0.66-1.25) mg/dL Est GFR (CKD-EPI)AfAm (>60 ml/min/1.73 sqM) Est GFR (CKD-EPI)NonAf (>60 ml/min/1.73 sqM) Glucose (74-99) mg/dL Calcium (8.4-10.2) mg/dL Total Bilirubin (0.2-1.3) mg/dL AST (17-59) U/L ALT (21-72) U/L Alkaline Phosphatase (38-126) U/L Troponin I <0.012 (0.000-0.034) ng/mL Total Protein (6.3-8.2) g/dL Albumin (3.5-5.0) g/dL 04/15/18 10:53 EKG shows sinus bradycardia, left axis deviation. On a branch block. Abnormal EKG noted. Ventricular rate of 60 bpm.. Intervals 190 ms. QS duration 154 ms. QT QTc is 462/421 seconds. - Radiology Data Radiology results: report reviewed Before meals joint arthropathy for x-rays of calcific tendinosis in the glenohumeral joint. Borderline heart size with strandy areas of atelectasis in the lower lungs. No acute process seen. Disposition Clinical Impression: Arthritis of left shoulder region Disposition: HOME SELF-CARE Condition: Good Instructions: Rheumatoid Arthritis (ED) Additional Instructions: Patient advised to follow-up with primary care provider and physician coding specialist. Return to the emergency department if any alarming signs or symptoms occur. Prescriptions: methylPREDNISolone Dose Pack [Medrol Dose Pack] 4 mg PO DIRECTED #21 package Is patient prescribed a controlled substance at d/c from ED?: No Referrals: West Bateman MD [Primary Care Provider] - 1-2 days Time of Disposition: 12:02
[2018-04-15 11:17] LABS: Basophils # (A) 0.1 k/uL (0-0.2); Basophils % (A) 1 %; Eosinophils # (A) 0.4 k/uL (0-0.7); Eosinophils % (A) 6 %; HCT 39.6 % (39.0-53.0); HGB 13.3 gm/dL (13.0-17.5); Lymphocytes % (A) 14 %; MCH 27.8 pg (25.0-35.0); MCHC 33.5 g/dL (31.0-37.0); MCV 83.1 fL (80.0-100.0); Mean Platelet Volume 7.2; Monocytes # (A) 0.6 k/uL (0-1.0); Monocytes % (A) 9 %; Neutrophils # (A) 4.6 k/uL (1.3-7.7); Neutrophils % (A) 68 %; Platelet Count 259 k/uL (150-450); RBC 4.77 m/uL (4.30-5.90); RDW 13.5 % (11.5-15.5); WBC 6.8 k/uL (3.8-10.6)
[2018-04-15 11:21] LABS: Prothrombin Time 10.3 sec (9.0-12.0)
--- NOTE | 2018-04-15 11:28 | XR ---
EXAMINATION TYPE: XR shoulder complete LT DATE OF EXAM: 04/15/2018 COMPARISON: NONE HISTORY: Pain TECHNIQUE: Three views are submitted. FINDINGS: The osseous structures are intact. There is no acute fracture or dislocation. Arthropathy of the AC joint. Calcification along the head of the humerus likely in the basis of calcific tendinosis. Narrow ing of the glenohumeral joint noted. IMPRESSION: 1. AC joint arthropathy and findings suggestive of calcific tendinosis or 2 arthropathy of the glenoh umeral joint..
[2018-04-15 11:30] LABS: ALT 20 U/L (21-72); AST 16 U/L (17-59); Albumin 3.3 g/dL (3.5-5.0); Alkaline Phosphatase 110 U/L (38-126); Anion Gap 8 mmol/L; Blood Urea Nitrogen 11 mg/dL (9-20); Calcium 9.3 mg/dL (8.4-10.2); Carbon Dioxide 25 mmol/L (22-30); Chloride 107 mmol/L (98-107); Glucose 95 mg/dL (74-99); Potassium 4.3 mmol/L (3.5-5.1); Sodium 140 mmol/L (137-145); Total Bilirubin 0.4 mg/dL (0.2-1.3); Total Protein 6.2 g/dL (6.3-8.2)
--- NOTE | 2018-04-15 11:30 | XR ---
EXAMINATION TYPE: XR chest 2V DATE OF EXAM: 04/15/2018 COMPARISON: 01/16/2018 HISTORY: 77-year-old male pain TECHNIQUE: Frontal and lateral views FINDINGS: Heart upper limits of normal in size. Median sternotomy wires with post-CABG clips in the mediastinum . Strandy atelectasis in the lower lungs. No consolidation or pleural effusion. IMPRESSION: Borderline heart size and strandy areas of atelectasis in the lower lungs. No acute process seen.
[2018-04-15 12:18] VITALS: BP 127/66; PULSE 68; TEMP 97.6
== END 2018-04-15 12:18 | disposition home or self-care (01) ==
LOC: EC 09:34
DX: M19.012 Primary osteoarthritis, left shoulder (principal); J98.11 Atelectasis; R00.1 Bradycardia, unspecified; R94.31 Abnormal electrocardiogram [ECG] [EKG]; E78.5 Hyperlipidemia, unspecified; I10 Essential (primary) hypertension; I25.10 Atherosclerotic heart disease of native coronary artery without angina pectoris; I25.2 Old myocardial infarction; F17.200 Nicotine dependence, unspecified, uncomplicated; Z88.0 Allergy status to penicillin; Z88.2 Allergy status to sulfonamides; Z88.8 Allergy status to other drugs, medicaments and biological substances; Z91.018 Allergy to other foods; Z91.040 Latex allergy status; Z91.048 Other nonmedicinal substance allergy status; Z79.899 Other long term (current) drug therapy; Z95.1 Presence of aortocoronary bypass graft; Z98.890 Other specified postprocedural states
CPT/HCPCS: 36415; 71046; 80053; 84484; 85025; 85610; 85730; 93005; 99284

== ENCOUNTER 2018-05-01 09:25 | Emergency (ER) | payer MEDICARE ==
[2018-05-01 09:31] VITALS: BP 123/56; PULSE 76; RESP 18; TEMP 97.6
[2018-05-01] MEDS ORDERED: ACET/COD 300 MG/30 MG STARTER PACK 6 TAB BTL PO STA (10:37)
--- NOTE | 2018-05-01 10:38 | ED ---
Neck Injury/Pain HPI - General Chief Complaint: Neck Pain/Injury Stated Complaint: Arm & neck pain Time Seen by Provider: 05/01/18 09:38 Source: RN notes reviewed, old records reviewed Mode of arrival: ambulatory Limitations: no limitations - History of Present Illness Initial Comments: This is a 77 year old male with CC of L neck pain and L shoulder pain. Patient has a history of arthritis, and reports that his arthritis is flaring up. Patient is requesting steroids. Patient states that he is out of his pain medication as prescribed by his PCP. Patient reports that he's had no falls or trauma to the shoulder. He reports his been worse over the past 2 days. Patient denies any recent fever or chills. Denies any chest pain shortness of breath or dizziness.Patient denies any recent fever, chills, shortness of breath , chest pain, back pain, abdominal pain, nausea vomiting, numbness or tingling, dysuria or hematuria, constipation or diarrhea, headaches or visual changes, or any other current symptoms - Related Data Home Medications Medication Instructions Recorded Confirmed Ezetimibe [Zetia] 10 mg PO HS 01/14/14 05/01/18 Metoprolol Tartrate [Lopressor] 50 mg PO DAILY 01/14/14 05/01/18 amLODIPine BESYLATE [Norvasc] 10 mg PO DAILY 01/14/14 05/01/18 Nitroglycerin Sl Tabs [Nitrostat] 0.4 mg SUBLINGUAL Q5M PRN 10/12/15 05/01/18 HYDROcodone/APAP 7.5-325MG [[place] 1 tab PO Q4H PRN 05/01/18 05/01/18 7.5-325] Ibuprofen [Motrin] 800 mg PO TID PRN 05/01/18 05/01/18 Pravastatin Sodium [Pravachol] 80 mg PO HS 05/01/18 05/01/18 Previous Rx's Medication Instructions Recorded Aspirin 325 mg PO BID #60 tab 03/31/18 Meloxicam 7.5 mg PO DAILY #20 tablet 05/01/18 Allergies Allergy/AdvReac Type Severity Reaction Status Date / Time adhesive Allergy Rash/Hives Verified 05/01/18 10:16 latex Allergy Itching Verified 05/01/18 10:16 amitriptyline [From Elavil] AdvReac Nausea & Verified 05/01/18 10:16 Vomiting amitriptyline HCl AdvReac Nausea & Verified 05/01/18 10:16 [From Triavil 2-10] Vomiting doxepin HCl [From Sinequan] AdvReac Nausea & Verified 05/01/18 10:16 Vomiting haloperidol [From Haldol] AdvReac Nausea & Verified 05/01/18 10:16 Vomiting Penicillins AdvReac Nausea & Verified 05/01/18 10:16 Vomiting perphenazine AdvReac Nausea & Verified 05/01/18 10:16 [From Triavil 2-10] Vomiting sulfamethoxazole AdvReac Nausea & Verified 05/01/18 10:16 [From Bactrim] Vomiting trimethoprim [From Bactrim] AdvReac Nausea & Verified 05/01/18 10:16 Vomiting walnut AdvReac Unknown Verified 05/01/18 10:16 Review of Systems ROS Statement: Those systems with pertinent positive or pertinent negative responses have been documented in the HPI. ROS Other: All systems not noted in ROS Statement are negative. 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 EGD WITH DILATION Past Anesthesia/Blood Transfusion Reactions: No Reported Reaction Past Psychological History: Anxiety, Depression, Schizoaffective Disorder, Schizophrenia Smoking Status: Current every day smoker Past Alcohol Use History: None Reported Past Drug Use History: None Reported - Past Family History Father Family Medical History: Cancer Additional Family Medical History / Comment(s): Father had prostate cancer. General Exam - General Exam Comments Initial Comments: 77 year old male, well appearing no acute distress. Limitations: no limitations General appearance: alert, in no apparent distress Head exam: Present: atraumatic, normocephalic, normal inspection Eye exam: Present: normal appearance, PERRL, EOMI. Absent: scleral icterus, conjunctival injection, periorbital swelling ENT exam: Present: normal exam, mucous membranes moist Neck exam: Present: normal inspection. Absent: tenderness, meningismus, lymphadenopathy Respiratory exam: Present: normal lung sounds bilaterally. Absent: respiratory distress, wheezes, rales, rhonchi, stridor Cardiovascular Exam: Present: regular rate, normal rhythm, normal heart sounds. Absent: systolic murmur, diastolic murmur, rubs, gallop, clicks GI/Abdominal exam: Present: soft, normal bowel sounds. Absent: distended, tenderness, guarding, rebound, rigid Extremities exam: Present: normal inspection, full ROM, normal capillary refill. Absent: tenderness, pedal edema, joint swelling, calf tenderness Left Shoulder Exam: Present: normal inspection. Absent: full ROM (Patient reports pain with extension of the shoulder above 90 as well as posterior irritation.) Upper Arm exam: Present: normal inspection, full ROM Elbow exam: Present: normal inspection, full ROM Forearm Wrist exam: Present: normal inspection, full ROM Hand Wrist exam: Present: normal inspection, full ROM Vascular: Present: normal capillary refill Back exam: Present: normal inspection Neurological exam: Present: alert, oriented X3, CN II-XII intact Psychiatric exam: Present: normal affect, normal mood Skin exam: Present: warm, dry, intact, normal color. Absent: rash Course Vital Signs 05/01/18 09:28 Temperature 97.6 F Pulse Rate 76 Respiratory 18 Rate Blood Pressure 123/56 O2 Sat by Pulse 96 Oximetry Medical Decision Making - Medical Decision Making 77-year-old male well-known to emergency department for chronic arthritic changes and chronic pain issues presents emergency department today with complaints of right shoulder and neck pain. Patient reports that his arthritis is flaring up. He is out of his pain medication from his PCP. Patient initially is requesting steroids. I discussed the prolonged steroid use can lead to STO process. Likely related to why the Patient had a fall 2 months ago and caused a hip fracture. Patient was prescribed scaring to earlier this month. I discussed monitoring for further prescriptions of steroids. I will put the Patient on enteric laboratory medication. I discussed that he cannot have any further pain medication refills from the emergency department as he is on a pain contract with his primary care physician. Patient agrees to treatment plan will comply. Return parameters were discussed. Disposition Clinical Impression: Shoulder pain, left, Arthritis Disposition: HOME SELF-CARE Condition: Good Instructions: Rotator Cuff Injury (ED) Additional Instructions: Is followed up with primary care provider regards to further pain medication prescriptions. Take anti-inflammatory medicine as prescribed. Return to emergency department if any alarming signs or symptoms occur. Prescriptions: Meloxicam 7.5 mg PO DAILY #20 tablet Is patient prescribed a controlled substance at d/c from ED?: No Referrals: West Bateman MD [Primary Care Provider] - 1-2 days Time of Disposition: 10:36
== END 2018-05-01 10:52 | disposition home or self-care (01) ==
LOC: EC 09:25
DX: M19.012 Primary osteoarthritis, left shoulder (principal); M54.2 Cervicalgia; I25.10 Atherosclerotic heart disease of native coronary artery without angina pectoris; E78.5 Hyperlipidemia, unspecified; I10 Essential (primary) hypertension; I25.2 Old myocardial infarction; M06.9 Rheumatoid arthritis, unspecified; F17.200 Nicotine dependence, unspecified, uncomplicated; Z79.899 Other long term (current) drug therapy; Z88.0 Allergy status to penicillin; Z91.040 Latex allergy status; Z91.048 Other nonmedicinal substance allergy status; Z88.2 Allergy status to sulfonamides; Z88.8 Allergy status to other drugs, medicaments and biological substances; Z91.018 Allergy to other foods; Z95.5 Presence of coronary angioplasty implant and graft; Z95.818 Presence of other cardiac implants and grafts
CPT/HCPCS: 99283

== ENCOUNTER 2018-05-20 09:33 | Emergency (ER) | payer MEDICARE ==
[2018-05-20 09:39] VITALS: RESP 18
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
[2018-05-20 10:15] LABS: Basophils # (A) 0.1 k/uL (0-0.2); Basophils % (A) 1 %; Eosinophils # (A) 0.4 k/uL (0-0.7); Eosinophils % (A) 5 %; HCT 36.8 % (39.0-53.0); HGB 12.4 gm/dL (13.0-17.5); Lymphocytes # (A) 0.9 k/uL (1.0-4.8); Lymphocytes % (A) 13 %; MCH 27.4 pg (25.0-35.0); MCHC 33.9 g/dL (31.0-37.0); MCV 80.8 fL (80.0-100.0); Mean Platelet Volume 7.5; Monocytes # (A) 0.8 k/uL (0-1.0); Monocytes % (A) 11 %; Neutrophils # (A) 4.9 k/uL (1.3-7.7); Neutrophils % (A) 68 %; Platelet Count 340 k/uL (150-450); RBC 4.55 m/uL (4.30-5.90); RDW 14.1 % (11.5-15.5); WBC 7.2 k/uL (3.8-10.6)
[2018-05-20 10:35] LABS: Anion Gap 6 mmol/L; Blood Urea Nitrogen 14 mg/dL (9-20); Calcium 9.2 mg/dL (8.4-10.2); Carbon Dioxide 22 mmol/L (22-30); Chloride 107 mmol/L (98-107); Glucose 105 mg/dL (74-99); Potassium 4.4 mmol/L (3.5-5.1); Sodium 135 mmol/L (137-145)
--- NOTE | 2018-05-20 11:03 | US ---
EXAMINATION TYPE: US venous doppler duplex UE LT DATE OF EXAM: 05/20/2018 COMPARISON: NONE CLINICAL HISTORY: Pain. SIDE PERFORMED: left Grayscale, color doppler, spectral doppler imaging performed of the deep veins of the left upper extr emity. Left Arm: Negative for DVT There is normal flow, compressibility and vascular waveforms of the visualized left subclavian, inter nal jugular, axillary, brachial radial and ulnar veins. Cephalic and basilic veins also unremarkable. IMPRESSION: No evident deep venous thrombosis in the left upper extremity
[2018-05-20] MEDS ORDERED: DEXAMETHASONE SOD PHOSPHATE 10 MG/ML 1 ML VIAL IM STA (11:16)
[2018-05-20 11:43] VITALS: BP 99/52; PULSE 65; TEMP 98.1
== END 2018-05-20 11:35 | disposition home or self-care (01) ==
LOC: EC 09:33
DX: M06.9 Rheumatoid arthritis, unspecified (principal); M79.89 Other specified soft tissue disorders; E78.5 Hyperlipidemia, unspecified; I10 Essential (primary) hypertension; I25.10 Atherosclerotic heart disease of native coronary artery without angina pectoris; I25.2 Old myocardial infarction; F17.200 Nicotine dependence, unspecified, uncomplicated; Z88.0 Allergy status to penicillin; Z88.2 Allergy status to sulfonamides; Z88.8 Allergy status to other drugs, medicaments and biological substances; Z91.018 Allergy to other foods; Z91.040 Latex allergy status; Z91.048 Other nonmedicinal substance allergy status; Z79.899 Other long term (current) drug therapy; Z95.1 Presence of aortocoronary bypass graft
CPT/HCPCS: 99284 ×2; 96372 ×2; 36415; 80048; 85025; 93971; J1100

== ENCOUNTER 2018-06-04 16:36 | Emergency (ER) | payer MEDICARE ==
[2018-06-04 16:47] VITALS: RESP 18
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
[2018-06-04] MEDS ORDERED: ORPHENADRINE 30 MG/ML 2 ML VIAL IM STA (17:43)
[2018-06-04] MEDS ORDERED: KETOROLAC 60 MG/2 ML VIAL IM STA (17:43)
[2018-06-04 18:32] VITALS: BP 138/78; PULSE 58; TEMP 97.6
== END 2018-06-04 18:31 | disposition home or self-care (01) ==
LOC: EC 16:36
DX: G89.29 Other chronic pain (principal); M25.512 Pain in left shoulder; E78.5 Hyperlipidemia, unspecified; I10 Essential (primary) hypertension; I25.10 Atherosclerotic heart disease of native coronary artery without angina pectoris; M06.9 Rheumatoid arthritis, unspecified; I25.2 Old myocardial infarction; F17.200 Nicotine dependence, unspecified, uncomplicated; Z88.0 Allergy status to penicillin; Z88.2 Allergy status to sulfonamides; Z88.8 Allergy status to other drugs, medicaments and biological substances; Z91.018 Allergy to other foods; Z91.040 Latex allergy status; Z91.048 Other nonmedicinal substance allergy status; Z79.899 Other long term (current) drug therapy; Z95.1 Presence of aortocoronary bypass graft
CPT/HCPCS: 99283; 96372 ×2; J2360; J1885

== ENCOUNTER 2018-08-09 14:00 | Emergency (ER) | payer MEDICARE, OTHER | END 2018-08-09 15:55 | disposition home or self-care (01) | LOC: EC 14:00 | DX: R21 Rash and other nonspecific skin eruption (principal); F17.200 Nicotine dependence, unspecified, uncomplicated | CPT/HCPCS: 96372; 99282 ==

== ENCOUNTER 2018-09-18 09:26 | Emergency (ER) | payer MEDICARE, OTHER ==
[2018-09-18 09:40] VITALS: RESP 18
[2018-09-18] MEDS ORDERED: methylPREDNISolone SOD SUCCI 125 MG/2 ML VIAL IV STA (10:25)
[2018-09-18] MEDS ORDERED: diphenhydrAMINE 50 MG/ML 1 ML VIAL IVP STA (10:25)
[2018-09-18] MEDS ORDERED: FAMOTIDINE 20 MG/2 ML VIAL IV STA (10:26)
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
[2018-09-18 11:13] LABS: Basophils # (A) 0.1 k/uL (0-0.2); Basophils % (A) 1 %; Eosinophils # (A) 0.6 k/uL (0-0.7); Eosinophils % (A) 8 %; HCT 43.4 % (39.0-53.0); HGB 14.4 gm/dL (13.0-17.5); Lymphocytes # (A) 1.2 k/uL (1.0-4.8); Lymphocytes % (A) 17 %; MCH 27.5 pg (25.0-35.0); MCHC 33.2 g/dL (31.0-37.0); MCV 82.7 fL (80.0-100.0); Mean Platelet Volume 7.4; Monocytes # (A) 0.7 k/uL (0-1.0); Monocytes % (A) 10 %; Neutrophils # (A) 4.4 k/uL (1.3-7.7); Neutrophils % (A) 61 %; Platelet Count 300 k/uL (150-450); RBC 5.25 m/uL (4.30-5.90); RDW 14.4 % (11.5-15.5); WBC 7.2 k/uL (3.8-10.6)
[2018-09-18 11:17] LABS: ALT 16 U/L (21-72); AST 15 U/L (17-59); Albumin 3.8 g/dL (3.5-5.0); Alkaline Phosphatase 116 U/L (38-126); Anion Gap 8 mmol/L; Blood Urea Nitrogen 20 mg/dL (9-20); Calcium 9.7 mg/dL (8.4-10.2); Carbon Dioxide 23 mmol/L (22-30); Chloride 110 mmol/L (98-107); Glucose 98 mg/dL (74-99); Potassium 4.2 mmol/L (3.5-5.1); Sodium 141 mmol/L (137-145); Total Bilirubin 0.4 mg/dL (0.2-1.3); Total Protein 6.6 g/dL (6.3-8.2)
[2018-09-18 11:53] VITALS: BP 110/63; PULSE 70; TEMP 98
== END 2018-09-18 11:53 | disposition home or self-care (01) ==
LOC: EC 09:26
DX: L30.1 Dyshidrosis [pompholyx] (principal); L03.113 Cellulitis of right upper limb; L03.114 Cellulitis of left upper limb; K11.20 Sialoadenitis, unspecified; F10.21 Alcohol dependence, in remission; E78.5 Hyperlipidemia, unspecified; I10 Essential (primary) hypertension; I25.10 Atherosclerotic heart disease of native coronary artery without angina pectoris; L40.9 Psoriasis, unspecified; M06.9 Rheumatoid arthritis, unspecified; I25.2 Old myocardial infarction; F41.9 Anxiety disorder, unspecified; F17.200 Nicotine dependence, unspecified, uncomplicated; Z88.0 Allergy status to penicillin; Z88.2 Allergy status to sulfonamides; Z88.8 Allergy status to other drugs, medicaments and biological substances; Z91.018 Allergy to other foods; Z91.040 Latex allergy status; Z91.09 Other allergy status, other than to drugs and biological substances; Z79.82 Long term (current) use of aspirin; Z79.899 Other long term (current) drug therapy; Z95.1 Presence of aortocoronary bypass graft
CPT/HCPCS: 36415; 80053; 83605; 85025; 99283; 96365; 96375 ×3; J1200; J2930; J0696

== ENCOUNTER 2019-01-04 11:55 | Emergency (ER) | payer MEDICARE ==
[2019-01-04 12:03] VITALS: BP 114/60; PULSE 72; RESP 18; TEMP 98.2
[2019-01-04] MEDS ORDERED: DEXAMETHASONE SOD PHOSPHATE 10 MG/ML 1 ML VIAL IM STA (12:35)
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
== END 2019-01-04 12:48 | disposition home or self-care (01) ==
LOC: EC 11:55
DX: L50.9 Urticaria, unspecified (principal); I25.10 Atherosclerotic heart disease of native coronary artery without angina pectoris; E78.5 Hyperlipidemia, unspecified; I10 Essential (primary) hypertension; I25.2 Old myocardial infarction; M19.90 Unspecified osteoarthritis, unspecified site; F20.9 Schizophrenia, unspecified; F32.9 Major depressive disorder, single episode, unspecified; F41.9 Anxiety disorder, unspecified; F17.200 Nicotine dependence, unspecified, uncomplicated; Z79.82 Long term (current) use of aspirin; Z79.899 Other long term (current) drug therapy; Z91.040 Latex allergy status; Z88.0 Allergy status to penicillin; Z91.018 Allergy to other foods; Z91.048 Other nonmedicinal substance allergy status; Z88.8 Allergy status to other drugs, medicaments and biological substances; Z88.1 Allergy status to other antibiotic agents; Z88.2 Allergy status to sulfonamides; Z95.1 Presence of aortocoronary bypass graft
CPT/HCPCS: 99282; 96372; J1100

== ENCOUNTER 2019-07-26 12:33 | Observation (INO) | payer MEDICARE ==
[2019-07-26] MEDS ORDERED: ASPIRIN 81 MG PO STA (13:33)
[2019-07-26 14:02] LABS: Basophils # (A) 0.1 k/uL (0-0.2); Basophils % (A) 1 %; Eosinophils # (A) 0.5 k/uL (0-0.7); Eosinophils % (A) 5 %; HCT 41.2 % (39.0-53.0); HGB 13.5 gm/dL (13.0-17.5); Lymphocytes # (A) 0.7 k/uL (1.0-4.8); Lymphocytes % (A) 6 %; MCH 27.5 pg (25.0-35.0); MCHC 32.6 g/dL (31.0-37.0); MCV 84.1 fL (80.0-100.0); Mean Platelet Volume 8.5; Monocytes # (A) 1.1 k/uL (0-1.0); Monocytes % (A) 10 %; Neutrophils # (A) 8.2 k/uL (1.3-7.7); Neutrophils % (A) 76 %; Platelet Count 292 k/uL (150-450); RDW 12.9 % (11.5-15.5); WBC 10.7 k/uL (3.8-10.6)
--- NOTE | 2019-07-26 14:08 | XR ---
EXAMINATION TYPE: XR chest 2V DATE OF EXAM: 07/26/2019 HISTORY: Chest Pain. REFERENCE: Previous study dated 04/15/2018. FINDINGS: Has been a midline sternotomy. Lung volumes are prominent. Heart size upper limits of normal in size. The lungs are clear. Pleural s paces are clear. IMPRESSION: 1. COPD. 2. BORDERLINE CARDIOMEGALY.
[2019-07-26 14:22] LABS: INR 0.9 (<1.2); Partial Thromboplastin Time 25.4 sec (22.0-30.0); Prothrombin Time 10.1 sec (9.0-12.0)
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
[2019-07-26 14:37] LABS: ALT 85 U/L (4-49); AST 33 U/L (17-59); African American GFR (CKD) >90 (>60 ml/min/1.73 sqM); Albumin 3.5 g/dL (3.5-5.0); Alkaline Phosphatase 393 U/L (38-126); Anion Gap 8 mmol/L; Blood Urea Nitrogen 18 mg/dL (9-20); Calcium 9.2 mg/dL (8.4-10.2); Carbon Dioxide 23 mmol/L (22-30); Chloride 106 mmol/L (98-107); Glucose 111 mg/dL (74-99); Non-African American GFR(CKD) 90 (>60 ml/min/1.73 sqM); Potassium 4.2 mmol/L (3.5-5.1); Sodium 137 mmol/L (137-145); Total Protein 6.8 g/dL (6.3-8.2)
[2019-07-26] MEDS ORDERED: HEPARIN SODIUM,PORCINE 5,000 UNIT/ML 1 ML VIAL IV ONE (15:48)
[2019-07-26] MEDS ORDERED: HEPARIN SODIUM,PORCINE 5,000 UNIT/ML 1 ML VIAL IV PRN (15:48)
[2019-07-26] MEDS ORDERED: NITROGLYCERIN SL TABS 0.4 MG TAB SUBLINGUAL PRN ×2 (15:48→23:22)
[2019-07-26] MEDS ORDERED: HEPARIN SOD,PORK IN 0.45% NACL 25,000 UNIT in 0.45% NACL 1 250ML.BAG IV SCH (16:00)
[2019-07-26] MEDS ORDERED: IBUPROFEN 200 MG TAB PO PRN (23:22)
[2019-07-26] MEDS ORDERED: diphenhydrAMINE 50 MG CAP PO PRN (23:22)
[2019-07-26] MEDS ORDERED: ACETAMINOPHEN TAB 325 MG TAB PO PRN (23:24)
[2019-07-27] MEDS: CEPHALEXIN 500 MG CAP PO SCH ×3 (00:01→15:04)
[2019-07-27 04:32] LABS: Cholesterol 145 mg/dL (<200); HDL Cholesterol 41 mg/dL (40-60); LDL Cholesterol,Calculated 88 mg/dL (0-99); Triglycerides 82 mg/dL (<150)
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
[2019-07-27] MEDS ORDERED: ASPIRIN 325 MG TAB PO SCH (09:00)
[2019-07-27] MEDS ORDERED: ASPIRIN 81 MG PO SCH (09:00)
[2019-07-27] MEDS ORDERED: METOPROLOL TARTRATE 50 MG TAB PO SCH (09:00)
[2019-07-27] MEDS ORDERED: LOSARTAN 25 MG TAB PO SCH (09:00)
[2019-07-27] MEDS ORDERED: amLODIPine 10 MG TAB PO SCH (09:00)
[2019-07-27] MEDS ORDERED: AMINOPHYLLINE 500 MG/20 ML VIAL IV PRN (09:50)
[2019-07-27] MEDS ORDERED: CAFFEINE CITRATE 60 MG/3 ML VIAL IV PRN (09:50)
[2019-07-27] MEDS ORDERED: DIPYRIDAMOLE IV ONE (10:00)
[2019-07-27] MEDS ORDERED: SODIUM CHLORIDE 0.9% IV ONE (10:00)
--- NOTE | 2019-07-27 13:00 | ECHOF ---
Referral Reason:chest pain MEASUREMENTS -------- HEIGHT: 165.1 cm WEIGHT: 64.4 kg BP: 129/58 RVIDd: 3.6 cm (< 3.3) IVSd: 1.4 cm (0.6 - 1.1) LVIDd: 4.0 cm (3.9 - 5.3) LVPWd: 1.7 cm (0.6 - 1.1) IVSs: 2.1 cm LVIDs: 2.2 cm LVPWs: 1.8 cm LAESV Index (A-L): 32.00 ml/m Ao Diam: 2.7 cm (2.0 - 3.7) AV Cusp: 1.3 cm (1.5 - 2.6) LA Diam: 4.0 cm (2.7 - 3.8) MV EXCURSION: 17.874 mm (> 18.000) MV EF SLOPE: 38 mm/s (70 - 150) EPSS: 0.3 cm MV E Moses: 0.74 m/s MV DecT: 232 ms MV A Moses: 0.97 m/s MV E/A Ratio: 0.77 AV maxP.39 mmHg AV meanP.64 mmHg AR PHT: 483 ms RAP: 5.00 mmHg RVSP: 30.53 mmHg FINDINGS -------- Sinus rhythm with extra systolic beats. This was a technically adequate study. There is moderate concentric left ventricular hypertrophy. Overall left ventricular systolic functi on is normal with, an EF between 55 - 60 %. The diastolic filling pattern is normal for the age of the patient 12.13. Septal wall motion is delayed and consistent with prior cardiac surgery. The right ventricle is mildly enlarged. LA is midly dilated 29-33ml/m2. The right atrium was not well visualized. Interatrial and interventricular septum intact. There is mild aortic regurgitation. Moderate aortic stenosis with peak/mean pressure gradient of 28 .39mmHg / 14.64mmHg, the aortic valve area by continuity equation is 1.2cm. Mild mitral annular calcification present. There is trace mitral regurgitation. Mild tricuspid regurgitation present. There is borderline pulmonary artery hypertension. The righ t ventricular systolic pressure, as measured by Doppler, is 30.53mmHg. There is no pulmonic regurgitation present. The aortic root size is normal. IVC Not well visulized. There is no pericardial effusion. CONCLUSIONS -------- 1. Sinus rhythm with extra systolic beats. 2. This was a technically adequate study. 3. There is moderate concentric left ventricular hypertrophy. 4. Overall left ventricular systolic function is normal with, an EF between 55 - 60 %. 5. The diastolic filling pattern is normal for the age of the patient 12.13 6. Septal wall motion is delayed and consistent with prior cardiac surgery. 7. The right ventricle is mildly enlarged. 8. LA is midly dilated 29-33ml/m2. 9. The right atrium was not well visualized. 10. Interatrial and interventricular septum intact. 11. There is mild aortic regurgitation. 12. Moderate aortic stenosis with peak/mean pressure gradient of 28.39mmHg / 14.64mmHg, the aortic va lve area by continuity equation is 1.2cm. 13. Mild mitral annular calcification present. 14. There is trace mitral regurgitation. 15. Mild tricuspid regurgitation present. 16. There is borderline pulmonary artery hypertension. 17. The right ventricular systolic pressure, as measured by Doppler, is 30.53mmHg. 18. There is no pulmonic regurgitation present. 19. The aortic root size is normal. 20. IVC Not well visulized. 21. There is no pericardial effusion. CHIMNEY BUILDER: Lakeshia Alfaro RDCS
[2019-07-27] MEDS: HYDROCORTISONE 1% CREAM 30 GM TUBE TOPICAL SCH ×2 (14:33→15:05)
--- NOTE | 2019-07-27 14:33 | XR ---
Right elbow HISTORY: Chronic pain 3 views of the right elbow Bone mineralization, joint spaces and alignment are maintained. No evident joint effusion. No fractur e or dislocation. IMPRESSION: No abnormality evident to account for patient's symptoms.
--- NOTE | 2019-07-27 14:53 | NM ---
EXAMINATION TYPE: NM stress persantine cardiolit DATE OF EXAM: 07/27/2019 COMPARISON: NONE HISTORY: Chest pain TECHNIQUE: After the intravenous administration of 9.6 mCi Tc 99m Sestamibi - Cardiolite resting SPE CT images acquired 50 minutes post injection. The patient received 37 mg Persantine, 26.3 mCi Tc 99m Sestamibi - Stress images obtained 60 minutes post injection FINDINGS: Review of stress and rest SPECT images demonstrates no distinct perfusion abnormality. Gated analysi s shows normal wall motion with an estimated left ventricular ejection fraction of 63 %. IMPRESSION: No scintigraphic evidence for reversible ischemia.
--- NOTE | 2019-07-27 15:35 | HP ---
HISTORY AND PHYSICAL ADMITTING CHIEF COMPLAINT: Chest pain. HISTORY OF PRESENT ILLNESS: This is another admission for this 78-year-old white male who does have a history of coronary artery disease. He has not had any significant cardiac symptoms over the last several years. He continues to smoke. He is a very anxious individual and he probably has rheumatoid arthritis which lately has been quite dormant. He presented to the emergency room with chest pain and his EKG and enzymes were unremarkable. He was admitted. He describes the pain as an aching all through his chest and also in his arms, hands and legs. He had no fever and he has had no significant swelling or redness in these areas. He is anxious individual. REVIEW OF SYSTEMS: He denies any syncope, neurologic problems, problems with vision or hearing, cough, hemoptysis, sputum production, fever, chills, orthopnea, PND, abdominal pain, nausea, vomiting, melena, hematochezia, jaundice, hepatitis, renal failure, hematuria, frequency, urgency, dysuria, nocturia, etc. PAST MEDICAL HISTORY/FAMILY HISTORY/PERSONAL AND SOCIAL HISTORIES: Unremarkable otherwise. He is allergic to STATINS, SULFA, NSAIDS, LATEX, PENICILLIN, HALDOL and SINEQUAN. He has had emotional problems in the past. CURRENT MEDICATIONS: Include Keflex, methylprednisone Dosepak, pravastatin 20 mg, nitroglycerin p.r.n., 4 mg b.i.d. p.r.n. for back pain, Zoloft 25 mg once a day, metoprolol 50 mg once a day, ezetimibe 10 mg once a day, amlodipine 10 mg once a day and aspirin. The remainder of his history is unremarkable. He did have a myocardial infarction in 2010 and he has had a quadruple CABG. He still smokes. PHYSICAL EXAMINATION: Blood pressure is 116/56, pulse of 80 and regular, respirations of 18, he is afebrile. In general, he appeared to be flushed. Skin color was otherwise normal. Skin was warm and dry. He did have some erythema and dryness of the skin on the arms, hands of legs. Head, ears, eyes, nose, mouth, and throat were normal. Carotids normal. The chest is clear. Cardiac exam is normal and the abdomen is soft and nontender. Extremities were normal. Neurologically he is intact. He was admitted to the hospital of diagnosis: 1. Atypical chest pain. 2. History of coronary artery disease. 3. Chronic obstructive pulmonary disease. 4. History of hypertension. 5. Depression. PLAN: 1. Bed rest. 2. IV fluids. 3. Serial EKGs and enzymes. 4. Consult Cardiology. FLAKITO / YAHAIRA: [id number] /
[2019-07-27 15:40] VITALS: BP 121/48; PULSE 59; RESP 17; TEMP 98.3
--- NOTE | 2019-07-27 16:35 | DS ---
DISCHARGE SUMMARY CHIEF COMPLAINT: Chest pain. HISTORY OF PRESENT ILLNESS AND PHYSICAL EXAMINATION: Details of this man's history and physical can be found in the initial workup. LABORATORY STUDIES: While he was in the hospital he had laboratory studies, details of which can be found in the laboratory section of his chart. COURSE IN THE HOSPITAL: After admission he was placed on bedrest, started his fluids and had serial EKGs and enzymes. He was seen by Cardiology. He had an echocardiogram. Enzymes were normal. It was felt that he could be released. He will be discharged home on his usual activity, diet and medication, and he will be seen in the office in a few days. FINAL DIAGNOSES: 1. Chest pain, atypical. 2. Coronary artery disease. 3. Status post coronary artery bypass grafting. 4. Hypertension. 5. Chronic obstructive pulmonary disease. 6. Depression. OPERATIONS: None. CONSULTATION: Cardiology. He is improved. MMODL / IJN: [id number] /
[2019-07-27] MEDS ORDERED: ATORVASTATIN 40 MG TAB PO SCH (21:00)
--- NOTE | 2019-07-28 14:00 | EST ---
EXERCISE STRESS AGE: 78 SEX: M HT: 5'5" WT: 142 PROTOCOL: Persantine Cardiolite Stress Test HEART RATE REST: 50 BLOOD PRESSURE REST: 126/54 MAXIMUM HEART RATE ACHIEVED: 54 MAXIMUM BLOOD PRESSURE: 122/45 85% MPHR: 122 100% MPHR: 142 INDICATIONS: Chest pain. CLINICAL INFORMATION: Patient was given Persantine infusion over a period of 4 minutes. The resting heart rate is 54 beats per minute with a maximum blood pressure of 122/45 mmHg was noted. Resting EKG shows normal sinus rhythm with sinus bradycardia and a QRS morphology suggestive of right bundle branch block pattern was noted. No ST-segment depression suggestive of ischemia is noted. The results of the nuclear study will follow. MMODL / IJN: [id number] /
== END 2019-07-27 16:30 | disposition home or self-care (01) ==
LOC: EC 12:33 → 1SOBS 15:56 → 3SCARD 19:33 → 1SOBS 07-27 10:09
PROVIDERS: ADMIT Family Medicine; ATTEND Family Medicine
DX: R07.89 Other chest pain (principal); R00.1 Bradycardia, unspecified; I44.4 Left anterior fascicular block; M25.512 Pain in left shoulder; M25.521 Pain in right elbow; M06.9 Rheumatoid arthritis, unspecified; I25.10 Atherosclerotic heart disease of native coronary artery without angina pectoris; J44.9 Chronic obstructive pulmonary disease, unspecified; I11.9 Hypertensive heart disease without heart failure; E78.5 Hyperlipidemia, unspecified; R41.3 Other amnesia; I45.10 Unspecified right bundle-branch block; I25.2 Old myocardial infarction; F17.200 Nicotine dependence, unspecified, uncomplicated; F20.9 Schizophrenia, unspecified; F41.9 Anxiety disorder, unspecified; F32.9 Major depressive disorder, single episode, unspecified; F10.21 Alcohol dependence, in remission; L40.9 Psoriasis, unspecified; Z90.49 Acquired absence of other specified parts of digestive tract; Z95.1 Presence of aortocoronary bypass graft; Z89.412 Acquired absence of left great toe; Z80.42 Family history of malignant neoplasm of prostate; Z79.82 Long term (current) use of aspirin; Z79.899 Other long term (current) drug therapy; Z91.018 Allergy to other foods; Z88.2 Allergy status to sulfonamides; Z91.040 Latex allergy status; Z88.8 Allergy status to other drugs, medicaments and biological substances; Z91.09 Other allergy status, other than to drugs and biological substances; Z88.6 Allergy status to analgesic agent; Z88.0 Allergy status to penicillin
CPT/HCPCS: 93005 ×2; 96366 ×3; 96376 ×2; 96365; 99284; 36415; 93017; 93306; 83880; 80061; 80053; 83690; 83735; 84484 ×2; 85025; 85610; 85730 ×2; 73080; 71046; 78452; G0378 ×4; A9500; J1644 ×2; J1245

== ENCOUNTER 2019-08-26 16:53 | Emergency (ER) | payer MEDICARE ==
[2019-08-26 17:01] VITALS: BP 122/69; PULSE 63; RESP 18; TEMP 97.5
[2019-08-26] MEDS ORDERED: methylPREDNISolone SOD SUCCI 125 MG/2 ML VIAL IM ONE (18:26)
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
== END 2019-08-26 18:40 | disposition home or self-care (01) ==
LOC: EC 16:53
DX: R21 Rash and other nonspecific skin eruption (principal); R51 Headache; I25.10 Atherosclerotic heart disease of native coronary artery without angina pectoris; E78.5 Hyperlipidemia, unspecified; I10 Essential (primary) hypertension; I25.2 Old myocardial infarction; M06.9 Rheumatoid arthritis, unspecified; F17.200 Nicotine dependence, unspecified, uncomplicated; Z79.82 Long term (current) use of aspirin; Z79.899 Other long term (current) drug therapy; Z95.1 Presence of aortocoronary bypass graft; Z88.0 Allergy status to penicillin; Z88.2 Allergy status to sulfonamides; Z88.1 Allergy status to other antibiotic agents; Z88.8 Allergy status to other drugs, medicaments and biological substances; Z91.040 Latex allergy status; Z91.048 Other nonmedicinal substance allergy status; Z90.49 Acquired absence of other specified parts of digestive tract; Z95.5 Presence of coronary angioplasty implant and graft
CPT/HCPCS: 99282; 96372; J2930

== ENCOUNTER 2019-09-20 08:32 | Emergency (ER) | payer MEDICARE ==
[2019-09-20 08:39] VITALS: BP 126/55; PULSE 69; RESP 18; TEMP 97.8
[2019-09-20] MEDS ORDERED: DEXAMETHASONE SOD PHOSPHATE 10 MG/ML 1 ML VIAL IM STA (08:50)
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
== END 2019-09-20 09:16 | disposition home or self-care (01) ==
LOC: EC 08:32
DX: L30.9 Dermatitis, unspecified (principal); I25.10 Atherosclerotic heart disease of native coronary artery without angina pectoris; I10 Essential (primary) hypertension; E78.5 Hyperlipidemia, unspecified; I25.2 Old myocardial infarction; M06.9 Rheumatoid arthritis, unspecified; F17.200 Nicotine dependence, unspecified, uncomplicated; Z79.82 Long term (current) use of aspirin; Z79.899 Other long term (current) drug therapy; Z91.040 Latex allergy status; Z91.048 Other nonmedicinal substance allergy status; Z88.8 Allergy status to other drugs, medicaments and biological substances; Z88.0 Allergy status to penicillin; Z88.1 Allergy status to other antibiotic agents; Z88.2 Allergy status to sulfonamides; Z91.018 Allergy to other foods; Z95.1 Presence of aortocoronary bypass graft
CPT/HCPCS: 99282; 96372; J1100

== ENCOUNTER → 2020-11-17 | Outpatient (CLI) | payer MEDICARE ==
--- NOTE | 2020-11-17 10:49 | US ---
EXAMINATION TYPE: US abdomen complete DATE OF EXAM: 11/17/2020 COMPARISON: NONE CLINICAL HISTORY: R94.8 abnormal pancreas function test. EXAM MEASUREMENTS: Liver Length: 10.2 cm Gallbladder Wall: Surgically absent CBD: 0.3 cm Spleen: 9.5 cm Right Kidney: 9.7 x 3.4 x 3.9 cm Left Kidney: 11.3 x 5.0 x 4.7 cm Pancreas: Portions visualized wnl, somewhat obscured by bowel gas Liver: cyst noted right superior measuring 0.8 x 0.6 x 0.7cm Gallbladder: Surgically absent Evidence for sonographic Saravia's sign: No CBD: wnl Spleen: wnl Right Kidney: Inferior pole cyst measuring 1.3 x 1.2 x 1.3cm Left Kidney: wnl Upper IVC: wnl Abd Aorta: Atherosclerotic changes noted bifurcation obscure by bowel gas The visualized liver is heterogeneous. Evaluation for focal masses suboptimal due to the heterogenei ty. A few subcentimeter thin-walled cyst marked by technologist The intrahepatic portion of the IVC w ithin normal limits. Atherosclerotic changes in the visualized abdominal aorta. Gallbladder noted mckayla gically absent. Common bile duct is within normal limits after cholecystectomy. The visualized port ions of the pancreas are homogenous. The spleen is unremarkable. Some cortical thinning and a few th in-walled cysts in the right kidney. No hydronephrosis bilaterally. IMPRESSION: Visualized portion of pancreas unremarkable on this ultrasound.
== END | disposition home or self-care (01) ==
LOC: RADUSWWP 09:43
PROVIDERS: ATTEND Internal Medicine
DX: R94.8 Abnormal results of function studies of other organs and systems (principal)
CPT/HCPCS: 76700

== ENCOUNTER → 2021-04-25 | Outpatient (CLI) | payer MEDICARE ==
--- NOTE | 2021-04-26 11:05 | P.ARTDOP ---
Arterial Doppler LOWER EXTREMITY ARTERIAL DOPPLER: DATE OF SERVICE: 04/25/2021 Reason for study: Right leg pain. Doppler waveforms: Multiphasic throughout on the right. Pulse volume recording: []. Pressure gradients: None. Ankle-brachial indices: Greater than 1 bilaterally. Toe brachial indices: 0.95 on the right, [] on the left Impression: Normal study.
== END | disposition home or self-care (01) ==
LOC: RADUSWWP 12:20
PROVIDERS: ATTEND Internal Medicine
DX: M79.604 Pain in right leg (principal)
CPT/HCPCS: 93922

== ENCOUNTER 2021-08-05 05:39 | Emergency (ER) | payer MEDICARE ==
[2021-08-05] MEDS ORDERED: SODIUM CHLORIDE 0.9% 1,000 ML IV STA (06:29)
[2021-08-05] MEDS ORDERED: DIAZEPAM 5 MG/ML 2 ML INJ IVP STA (06:29)
[2021-08-05] MEDS ORDERED: GLUCAGON 1 MG/ML VIAL IVP STA (06:30)
[2021-08-05] MEDS ORDERED: METOCLOPRAMIDE 5 MG/ML 2 ML VIAL IVP STA (06:30)
[2021-08-05] MEDS ORDERED: NITROGLYCERIN SL TABS 0.4 MG TAB SUBLINGUAL STA (06:30)
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
[2021-08-05 06:36] VITALS: TEMP 97.7
[2021-08-05 08:25] VITALS: BP 140/76; PULSE 71; RESP 16
== END 2021-08-05 09:52 | disposition home or self-care (01) ==
LOC: EC 05:39
DX: T18.128A Food in esophagus causing other injury, initial encounter (principal); I25.2 Old myocardial infarction; I10 Essential (primary) hypertension; I25.10 Atherosclerotic heart disease of native coronary artery without angina pectoris; Z91.09 Other allergy status, other than to drugs and biological substances; M06.9 Rheumatoid arthritis, unspecified; Z91.040 Latex allergy status; Z88.8 Allergy status to other drugs, medicaments and biological substances; Z88.2 Allergy status to sulfonamides; Z79.899 Other long term (current) drug therapy; Z79.82 Long term (current) use of aspirin
CPT/HCPCS: 99284; 96374; 96375; 96361; J1610; J2765; J3360

== ENCOUNTER 2023-02-19 19:41 | Emergency (ER) | payer MEDICARE, OTHER ==
[2023-02-19 19:48] VITALS: TEMP 98.2
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
[2023-02-19 21:06] VITALS: BP 136/63; PULSE 74; RESP 16
== END 2023-02-19 21:07 | disposition home or self-care (01) ==
LOC: EC 19:41
DX: T74.21XA Adult sexual abuse, confirmed, initial encounter (principal); I25.10 Atherosclerotic heart disease of native coronary artery without angina pectoris; I10 Essential (primary) hypertension; I25.2 Old myocardial infarction; F17.200 Nicotine dependence, unspecified, uncomplicated; Z86.59 Personal history of other mental and behavioral disorders; Z79.899 Other long term (current) drug therapy; Z79.82 Long term (current) use of aspirin; Z91.09 Other allergy status, other than to drugs and biological substances; Z91.040 Latex allergy status; Z88.6 Allergy status to analgesic agent; Z88.2 Allergy status to sulfonamides; Z88.0 Allergy status to penicillin; Z88.8 Allergy status to other drugs, medicaments and biological substances; Z88.1 Allergy status to other antibiotic agents
CPT/HCPCS: 70490; 99284

== ENCOUNTER 2023-05-02 09:53 | Emergency (ER) | payer MEDICARE, OTHER ==
[2023-05-02 10:14] VITALS: RESP 16
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
[2023-05-02 10:57] VITALS: BP 142/76; PULSE 58; TEMP 97.8
== END 2023-05-02 10:51 | disposition home or self-care (01) ==
LOC: EC 09:53
DX: G89.29 Other chronic pain (principal); Z76.0 Encounter for issue of repeat prescription; I10 Essential (primary) hypertension; I25.10 Atherosclerotic heart disease of native coronary artery without angina pectoris; I25.2 Old myocardial infarction; F17.200 Nicotine dependence, unspecified, uncomplicated; Z79.899 Other long term (current) drug therapy; Z88.0 Allergy status to penicillin; Z88.1 Allergy status to other antibiotic agents; Z88.2 Allergy status to sulfonamides; Z88.8 Allergy status to other drugs, medicaments and biological substances; Z91.040 Latex allergy status; Z90.49 Acquired absence of other specified parts of digestive tract; Z95.1 Presence of aortocoronary bypass graft
CPT/HCPCS: 99282

== ENCOUNTER 2023-05-20 09:49 | Emergency (ER) | payer MEDICARE, OTHER ==
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
[2023-05-20 11:43] VITALS: BP 161/67; PULSE 57; RESP 16; TEMP 97.9
== END 2023-05-20 11:33 | disposition home or self-care (01) ==
LOC: EC 09:49
DX: Z76.0 Encounter for issue of repeat prescription (principal); I10 Essential (primary) hypertension; I25.2 Old myocardial infarction; I25.10 Atherosclerotic heart disease of native coronary artery without angina pectoris; F41.9 Anxiety disorder, unspecified; F32.A Depression, unspecified; F17.200 Nicotine dependence, unspecified, uncomplicated; Z79.82 Long term (current) use of aspirin; Z79.899 Other long term (current) drug therapy; Z88.0 Allergy status to penicillin; Z88.1 Allergy status to other antibiotic agents; Z88.2 Allergy status to sulfonamides; Z88.8 Allergy status to other drugs, medicaments and biological substances; Z91.040 Latex allergy status; Z90.49 Acquired absence of other specified parts of digestive tract; Z95.1 Presence of aortocoronary bypass graft
CPT/HCPCS: 99282

== ENCOUNTER 2023-07-24 10:20 | Observation (INO) | payer MEDICARE, OTHER ==
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
[2023-07-24 10:58] LABS: Basophils # (A) 0.1 k/uL (0-0.2); Basophils % (A) 1 %; Eosinophils # (A) 0.4 k/uL (0-0.7); Eosinophils % (A) 6 %; HCT 45.5 % (39.0-53.0); HGB 15.3 gm/dL (13.0-17.5); Lymphocytes # (A) 0.9 k/uL (1.0-4.8); Lymphocytes % (A) 15 %; MCH 28.9 pg (25.0-35.0); MCHC 33.7 g/dL (31.0-37.0); MCV 85.9 fL (80.0-100.0); Mean Platelet Volume 8.4; Monocytes # (A) 0.5 k/uL (0-1.0); Monocytes % (A) 8 %; Neutrophils # (A) 4.1 k/uL (1.3-7.7); Neutrophils % (A) 66 %; Platelet Count 243 k/uL (150-450); RBC 5.29 m/uL (4.30-5.90); RDW 13.2 % (11.5-15.5); WBC 6.2 k/uL (3.8-10.6)
--- NOTE | 2023-07-24 10:59 | XR ---
EXAMINATION TYPE: XR chest 2V DATE OF EXAM: 07/24/2023 COMPARISON: 07/26/2019 HISTORY: 82-year-old male with chest pain TECHNIQUE: PA and lateral views FINDINGS: Heart normal size. Mild extrahepatic arch calcifications. Median sternotomy wires with postoperative clips in the mediastinum. Mild hyperinflation. No consolidation or pleural effusion. IMPRESSION: Post CABG changes. Correlate for underlying COPD. Otherwise, no acute process seen.
[2023-07-24 11:05] LABS: INR 0.9 (<1.2); Partial Thromboplastin Time 26.2 sec (22.0-30.0); Prothrombin Time 10.4 sec (10.0-12.5)
[2023-07-24 11:16] LABS: ALT 19 U/L (4-49); AST 23 U/L (17-59); African American GFR (CKD) >90 (>60 ml/min/1.73 sqM); Albumin 4.5 g/dL (3.5-5.0); Alkaline Phosphatase 130 U/L (38-126); Anion Gap 11 mmol/L; Blood Urea Nitrogen 14 mg/dL (9-20); Calcium 9.8 mg/dL (8.4-10.2); Carbon Dioxide 23 mmol/L (22-30); Chloride 105 mmol/L (98-107); Glucose 115 mg/dL (74-99); Magnesium 2.2 mg/dL (1.6-2.3); Non-African American GFR(CKD) 82 (>60 ml/min/1.73 sqM); Potassium 4.1 mmol/L (3.5-5.1); Sodium 139 mmol/L (137-145); Total Bilirubin 0.6 mg/dL (0.2-1.3); Total Protein 7.9 g/dL (6.3-8.2)
[2023-07-24] MEDS ORDERED: ASPIRIN 81 MG PO STA (11:59)
[2023-07-24] MEDS ORDERED: NITROGLYCERIN SL TABS 0.4 MG TAB SUBLINGUAL PRN (11:59)
[2023-07-25] MEDS ORDERED: ASPIRIN 325 MG TAB PO SCH (09:00)
[2023-07-25] MEDS ORDERED: PANTOPRAZOLE 40 MG TABLET PO PRN (09:36)
[2023-07-25] MEDS ORDERED: HYDROcodone/APAP 10-325MG 1 EACH TAB PO PRN (09:36)
[2023-07-25] MEDS ORDERED: ALBUTEROL HFA INHALER INHALATION PRN (09:36)
[2023-07-25] MEDS ORDERED: DOCUSATE 100 MG CAP PO PRN (09:36)
[2023-07-25] MEDS: ASPIRIN 81 MG PO SCH (09:40)
[2023-07-25] MEDS: amLODIPine 10 MG TAB PO SCH (09:40)
[2023-07-25] MEDS ORDERED: ASPIRIN 325 MG TAB PO STA (10:01)
[2023-07-25] MEDS ORDERED: ALPRAZolam 0.25 MG TAB PO PRN (10:01)
[2023-07-25] MEDS ORDERED: NITROGLYCERIN SL TABS 0.4 MG TAB SUBLINGUAL PRN (10:01)
[2023-07-25] MEDS ORDERED: ATORVASTATIN 80 MG TAB PO STA (10:01)
[2023-07-25] MEDS ORDERED: ALPRAZolam 0.5 MG TAB PO PRN (10:01)
[2023-07-25] MEDS: METOPROLOL SUCCINATE (ER) 50 MG TAB.ER.24H PO SCH (10:25)
[2023-07-25 11:12] LABS: Chol/HDL Ratio 4.92 Ratio; LDL Cholesterol,Calculated 136.6 mg/dL (0.0-131.0); VLDL Calculation 18.82 mg/dL (5.00-40.00)
[2023-07-25] MEDS: NITROGLYCERIN OINT 1 INCH/GM PACKET TOPICAL SCH ×3 (12:11→23:00)
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
--- NOTE | 2023-07-25 15:55 | P.HPIM ---
History of Present Illness H&P Date: 07/25/23 This is an 82 year old male with history of 4 vessel CABG many years ago, hypertension, rheumatoid arthritis, hyperlipidemia, current smoker comes in with complaint of chest pain midsternal felt like a pressure like sensation currently rating a 2 to 3/10. No shortness of breath denies radiation of his lightheadedness. Denies any recent illnesses. No fever or chills. Comes an EKG showing sinus bradycardia with a first-degree AV block heart rate of 46. Patient has been maintained on Toprol-XL 50 mg daily outpatient which will be held time. Chest x-ray showing post CABG changes with underlying COPD and no acute process. Admitted to the hospital in observation with cardiology in consultation. Has been evaluated and recommended to undergo cardiac catheterization tomorrow. Troponin level has been negative x 3. REVIEW OF SYSTEMS: CONSTITUTIONAL: No fever, no malaise, no fatigue. HEENT: No recent visual problems or hearing problems. Denied any sore throat. CARDIOVASCULAR: No chest pain, orthopnea, PND, no palpitations, no syncope. PULMONARY: No shortness of breath, no cough, no hemoptysis. GASTROINTESTINAL: No diarrhea, no nausea, no vomiting, no abdominal pain. NEUROLOGICAL: No headaches, no weakness, no numbness. HEMATOLOGICAL: Denies any bleeding or petechiae. GENITOURINARY: Denies any burning micturition, frequency, or urgency. MUSCULOSKELETAL/RHEUMATOLOGICAL: Denies any joint pain, swelling, or any muscle pain. ENDOCRINE: Denies any polyuria or polydipsia. The rest of the 14-point review of systems is negative. PHYSICAL EXAMINATION: GENERAL: The patient is alert and oriented x3, not in any acute distress. Well developed, well nourished. HEENT: Pupils are round and equally reacting to light. EOMI. No scleral icterus. No conjunctival pallor. Normocephalic, atraumatic. No pharyngeal erythema. No thyromegaly. CARDIOVASCULAR: S1 and S2 present. No murmurs, rubs, or gallops. PULMONARY: Chest is clear to auscultation, no wheezing or crackles. ABDOMEN: Soft, nontender, nondistended, normoactive bowel sounds. No palpable organomegaly. MUSCULOSKELETAL: No joint swelling or deformity. EXTREMITIES: No cyanosis, clubbing, or pedal edema. NEUROLOGICAL: Gross neurological examination did not reveal any focal deficits. SKIN: No rashes. 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 Dr. Rosalie MD I have performed a history and physical examination and medical decision making of this patient, discussed the same with the dictator, and agree with the dictators assessment and plan as written, documented as a scribe. Based on total visit time, I have performed more than 50% of this visit. Past Medical History Past Medical History: Coronary Artery Disease (CAD), Hyperlipidemia, Hypertension, Memory Impairment, Myocardial Infarction (DC), Rheumatoid Arthritis (RA), Skin Disorder Additional Past Medical History / Comment(s): PSORIASIS, RECOVERING ALCOHOLIC (20 YRS) hx of esophageal stricture Last Myocardial Infarction Date:: 2009 History of Any Multi-Drug Resistant Organisms: None Reported Past Surgical History: Appendectomy, Cholecystectomy, Coronary Bypass/CABG, Heart Catheterization, Orthopedic Surgery Additional Past Surgical History / Comment(s): toe amputation (1ST AND 2ND TOE ON LEFT FOOT, R/T [employer] ACCIDENT), QUAD BYPASS. EGD WITH DILATION, Hip Surgery 03/2018 Past Anesthesia/Blood Transfusion Reactions: No Reported Reaction Past Psychological History: Anxiety, Depression, Schizoaffective Disorder, Schizophrenia Smoking Status: Current every day smoker Past Alcohol Use History: None Reported Past Drug Use History: None Reported - Past Family History Father Family Medical History: Cancer Additional Family Medical History / Comment(s): Father had prostate cancer. Mother Family Medical History: Cancer Medications and Allergies Home Medications Medication Instructions Recorded Confirmed Type amLODIPine BESYLATE [Norvasc] 10 mg PO DAILY 01/14/14 07/24/23 History Nitroglycerin Sl Tabs [Nitrostat] 0.4 mg SUBLINGUAL Q5M PRN 10/12/15 07/24/23 History Aspirin 81 mg PO DAILY 09/18/18 07/24/23 History HYDROcodone/APAP 10-325MG [[place]ley 1 tab PO Q6H PRN #30 tab 05/02/23 07/24/23 Rx 10-325] Albuterol Inhaler [Ventolin Hfa 1 - 2 puff INHALATION RT-Q6H PRN 07/24/23 07/24/23 History Inhaler] Clobetasol Propionate [Temovate 1 applic TOPICAL BID PRN 07/24/23 07/24/23 History 0.05% Cream] Clotrimazole/Betameth Cream 1 applic TOPICAL BID PRN 07/24/23 07/24/23 History [Lotrisone] Dicyclomine [Bentyl] 10 mg PO TID 07/24/23 07/24/23 History Docusate [Colace] 100 mg PO DAILY PRN 07/24/23 07/24/23 History Ketoconazole 2% Cream [Nizoral 2%] 1 applic TOPICAL DAILY PRN 07/24/23 07/24/23 History Ketoconazole 2% Shampoo [Nizoral] 1 applic TOPICAL DAILY PRN 07/24/23 07/24/23 History Metoprolol Succinate (ER) [Toprol 50 mg PO DAILY 07/24/23 07/24/23 History Xl] Omeprazole 20 mg PO DAILY PRN 07/24/23 07/24/23 History Simethicone [Gas-X] 125 mg PO ACHS PRN 07/24/23 07/24/23 History diphenhydrAMINE HCL [Benadryl] 25 - 50 mg PO QID PRN 07/24/23 07/24/23 History hydrOXYzine HCL [Atarax] 10 mg PO BID PRN 07/24/23 07/24/23 History Allergies Allergy/AdvReac Type Severity Reaction Status Date / Time adhesive Allergy Rash/Hives Verified 07/24/23 12:36 latex Allergy Itching Verified 07/24/23 12:36 amitriptyline [From Elavil] AdvReac Nausea & Verified 07/24/23 12:36 Vomiting amitriptyline HCl AdvReac Nausea & Verified 07/24/23 12:36 [From Triavil 2-10] Vomiting doxepin HCl [From Sinequan] AdvReac Nausea & Verified 07/24/23 12:36 Vomiting haloperidol [From Haldol] AdvReac Nausea & Verified 07/24/23 12:36 Vomiting Penicillins AdvReac Nausea & Verified 07/24/23 12:36 Vomiting perphenazine AdvReac Nausea & Verified 07/24/23 12:36 [From Triavil 2-10] Vomiting sulfamethoxazole AdvReac Nausea & Verified 07/24/23 12:36 [From Bactrim] Vomiting trimethoprim [From Bactrim] AdvReac Nausea & Verified 07/24/23 12:36 Vomiting walnut AdvReac Unknown Verified 07/24/23 12:36 Physical Exam Vitals: Vital Signs Temp Pulse Pulse Resp BP BP Pulse Ox 07/25/23 07:00 97.6 F 59 L 16 132/54 96 07/25/23 05:53 55 L 16 133/56 96 07/25/23 02:19 84 16 130/61 95 07/25/23 00:26 97 07/24/23 23:30 56 L 16 128/71 95 07/24/23 22:13 97.9 F 60 16 128/73 91 L 07/24/23 18:00 53 L 16 140/60 95 07/24/23 16:00 56 L 16 136/67 99 07/24/23 15:00 58 L 15 95 07/24/23 14:00 51 L 18 130/57 93 L 07/24/23 10:21 97.5 F L 65 20 135/61 99 Results CBC & Chem 7: 07/24/23 10:46 07/24/23 10:46 Labs: Abnormal Lab Results - Last 24 Hours (Table) 07/24/23 07/24/23 Range/Units 10:46 10:46 Lymphocytes # 0.9 L (1.0-4.8) k/uL Glucose 115 H (74-99) mg/dL Alkaline Phosphatase 130 H (38-126) U/L Assessment and Plan Time with Patient: Less than 30
--- NOTE | 2023-07-25 17:13 | CA ---
Transthoracic Echo Report Name: Shaq Jason Age: 82 Gender: M : 1940 Exam Date: 07/25/2023 12:49 Exam Location: [facility] Ht (in): 65 Wt (lb): 137 Ordering Physician: Reyna Walden Attending/Referring Phys: [id number], Win Cotton Stomper Sommer Dumont RDCS Procedure CPT: Indications: LVF Cardiac Hx: Technical Quality: Good Contrast 1: Total Dose (mL): Contrast 2: Total Dose (mL): MEASUREMENTS (Male / Female) Normal Values 2D ECHO LV Diastolic Diameter PLAX 4.2 cm 4.2 - 5.9 / 3.9 - 5.3 cm LV Systolic Diameter PLAX 3.5 cm IVS Diastolic Thickness 1.3 cm 0.6 - 1.0 / 0.6 - 0.9 cm LVPW Diastolic Thickness 1.3 cm 0.6 - 1.0 / 0.6 - 0.9 cm LV Relative Wall Thickness 0.6 RV Internal Dim ED PLAX 3.1 cm LVOT Diameter 2.5 cm LA Systolic Diameter LX 4.9 cm 3.0 - 4.0 / 2.7 - 3.8 cm LV Diastolic Volume MOD 4C 85.4 cm??? LV Systolic Volume MOD 4C 39.7 cm??? LV Ejection Fraction MOD 4C 53.6 % LV Cardiac Index MOD 4C 1433.2 cm???/min???m??? LV Diastolic Length 4C 7.7 cm LV Systolic Length 4C 6.3 cm LV Diastolic Volume MOD 2C 50.5 cm??? LV Systolic Volume MOD 2C 28.5 cm??? LV Ejection Fraction MOD 2C 43.7 % LV Cardiac Index MOD 2C 691.4 cm???/min???m??? LV Diastolic Length 2C 7.4 cm LV Systolic Length 2C 6.2 cm LA Volume 56.1 cm??? 18 - 58 / 22 - 52 cm??? LA Volume Index 33.1 cm???/m??? 16 - 28 cm???/m??? M-MODE Aortic Root Diameter MM 3.2 cm MV E Point Septal Separation 0.2 cm AV Cusp Separation MM 1.5 cm DOPPLER AV Peak Velocity 95.6 cm/s AV Peak Gradient 3.7 mmHg MV Area PHT 2.9 cm??? Mitral E Point Velocity 67.5 cm/s Mitral A Point Velocity 76.1 cm/s Mitral E to A Ratio 0.9 MV Deceleration Time 263.8 ms MV E' Velocity 4.4 cm/s Mitral E to MV E' Ratio 15.5 TR Peak Velocity 225.0 cm/s TR Peak Gradient 20.3 mmHg Right Ventricular Systolic Press 25.2 mmHg FINDINGS Left Ventricle Left ventricular ejection fraction is estimated at 50-55 %. Left ventricular cavity size normal. Mildly increased septal wall thickness. Right Ventricle Normal right ventricular size. Unable to estimate the right ventricular systolic pressure. Right Atrium Normal right atrial size. Left Atrium Moderately increased left atrial diameter. Mildly increased left atrial volume. Mitral Valve Structurally normal mitral valve. Trace mitral regurgitation. Aortic Valve Trileaflet aortic valve. Aortic valve sclerosis. Tricuspid Valve Structurally normal tricuspid valve. No tricuspid regurgitation. Pulmonic Valve Structurally normal pulmonic valve. Trace pulmonic regurgitation. Pericardium No pericardial effusion. Aorta Normal size aortic root and proximal ascending aorta. CONCLUSIONS Normal LV function Left atrial enlargement Previewed by: Dr. Nirav Alan MD (Electronically Signed) Final Date: 25 July 2023 17:12
[2023-07-25] MEDS: ATORVASTATIN 40 MG TAB PO SCH (21:35)
[2023-07-25] MEDS: HEPARIN SODIUM,PORCINE 5,000 UNIT/ML 1 ML VIAL SQ SCH (21:35)
[2023-07-26] MEDS ORDERED: ASPIRIN 325 MG TAB PO ONE (05:00)
[2023-07-26] MEDS ORDERED: ATORVASTATIN 80 MG TAB PO ONE (05:00)
[2023-07-26] MEDS: ASPIRIN 81 MG PO SCH (06:07)
[2023-07-26] MEDS: SODIUM CHLORIDE 0.9% 1,000 ML IV SCH ×2 (06:46→20:47)
[2023-07-26] MEDS ORDERED: HEPARIN SODIUM,PORCINE (1 ML) 2,500 UNIT in SODIUM CHLORIDE 0.9% 250 ML IRRIGATION PRN (07:00)
[2023-07-26] MEDS ORDERED: HEPARIN SODIUM,PORCINE 10,000 UNIT in SODIUM CHLORIDE 0.9% 1,000 ML IRRIGATION PRN (07:00)
[2023-07-26] MEDS ORDERED: LIDOCAINE 1% INJ 10MG/ML (20 ML MDV) ONE (07:11)
[2023-07-26] MEDS ORDERED: VERAPAMIL 2.5 MG/ML 2 ML AMP ONE (07:11)
[2023-07-26] MEDS: NITROGLYCERIN OINT 1 INCH/GM PACKET TOPICAL SCH ×4 (07:21→20:48)
[2023-07-26] MEDS ORDERED: HEPARIN SODIUM 1,000 UN/ML (10ML VL) ONE (07:26)
[2023-07-26] MEDS ORDERED: fentaNYL (PF) 50 MCG/ML 2 ML AMP ONE (07:26)
[2023-07-26] MEDS ORDERED: IV FLUID CONTINUATION 800 ML IV ONE (07:50)
[2023-07-26] MEDS ORDERED: MIDAZOLAM 2 MG/2 ML VIAL IVP ONE (08:00)
[2023-07-26] MEDS ORDERED: fentaNYL (PF) 50 MCG/ML 2 ML AMP IVP ONE (08:00)
[2023-07-26] MEDS ORDERED: LIDOCAINE 1% INJ 10MG/ML (20 ML MDV) SQ ONE (08:01)
[2023-07-26] MEDS ORDERED: IOPAMIDOL-370 100ML BTL INJ ONE ×3 (08:18→09:24)
[2023-07-26] MEDS ORDERED: HEPARIN SODIUM 1,000 UN/ML (10ML VL) IV ONE (08:43)
[2023-07-26] MEDS ORDERED: NITROGLYCERIN 1000MCG/10ML SYRINGE INTRAARTER ONE (08:46)
[2023-07-26] MEDS ORDERED: CLOPIDOGREL 75 MG TAB ONE (08:54)
[2023-07-26] MEDS ORDERED: CLOPIDOGREL 75 MG TAB PO ONE (08:57)
[2023-07-26] MEDS ORDERED: ZOLPIDEM 5 MG TAB PO PRN (09:06)
[2023-07-26] MEDS ORDERED: RX INFO: IV CONTRAST WAS GIVEN 1 EACH MISC MISCELLANE PRN (09:06)
[2023-07-26] MEDS ORDERED: ATROPINE SULFATE 0.1 MG/ML 10ML SYRINGE IV PRN (09:06)
[2023-07-26] MEDS ORDERED: MAG HYDROX/AL HYDROX/SIMETH 30 ML CUP PO PRN (09:06)
[2023-07-26] MEDS ORDERED: NITROGLYCERIN SL TABS 0.4 MG TAB SUBLINGUAL PRN (09:06)
[2023-07-26] MEDS ORDERED: SODIUM CHLORIDE 0.9% 1,000 ML in EMPTY BAG 1 BAG IV SCH (09:15)
--- NOTE | 2023-07-26 09:38 | CC ---
CARDIAC CATHETERIZATION REPORT INDICATION: Unstable angina in a patient with known coronary artery disease status post prior bypass surgery. PROCEDURE NOTE: After obtaining informed consent, left heart catheterization and coronary angiogram were performed via the right femoral artery using standard Tori catheters. The patient tolerated the procedure well without any obvious immediate complications. The patient received moderate conscious sedation. Total sedation time was 40 minutes. FINDINGS: 1. Hemodynamics: Left ventricular end-diastolic pressure is 8 mm. There is a gradient of 30 mm across the aortic valve consistent with moderate aortic stenosis. 2. [place] coronary arteries: a.Right coronary artery: Right coronary artery appears totally occluded proximally. b.Left main coronary artery: Left main coronary artery appears calcified. There is a 50% distal left main stenosis, divides into circumflex coronary artery and LAD. Circ is totally occluded in the midportion. LAD has a tight stenosis proximally with competitive flow into the ARANGO. There was competitive flow noted into the mid to distal LAD. SELECTIVE INJECTION OF THE BYPASS GRAFT: 1. Venous graft to the right coronary artery appears patent. Proximal and distal anastomotic sites are free of disease and the [place] right coronary artery shows 30% to 40% stenosis. 2. Venous graft to circumflex coronary artery is patent. 3. Venous graft to the diagonal is patent. 4. ARANGO to the LAD appears patent. At the very origin of the ARANGO, there is a focal area of stenosis that seems 80 to 90%. This could either represent a spasm or real stenosis. CONCLUSIONS: 1. Severe three-vessel coronary artery disease. 2. Patent venous graft to RCA, OM and diagonal branch. 3. Patent ARANGO to LAD with an area of concern in the ostial portion of the ARANGO. PLAN: I have asked Dr. Thompson, the on-call benzol operator to review the angiographic data. He will give some sublingual nitroglycerin and see if this represents spasm. If not, he is going to go ahead and stent it. MMODL / IJN: [id number] /
--- NOTE | 2023-07-26 11:35 | PTCA ---
PERCUTANEOUSTRANS CORORONARY ANGIOGRAPHY PERFORMING PHYSICIAN: Mark Thompson MD. PROCEDURES PERFORMED: 1. Successful stenting of the ARANGO to LAD using the 3.0 x 15 mm Xience ELENA with excellent angiographic results. 2. Adjunctive use of intravascular imaging. 3. Selective right common femoral artery angiogram. INDICATIONS: Severe disease involving the ostial ARANGO to LAD in this 82-year-old gentleman who underwent a heart catheterization by Dr. Alan. APPROACH: Right common femoral artery. COMPLICATIONS: None. LEVEL OF SEDATION: Moderate, with sedation length of 26 minutes. PROCEDURE DESCRIPTION: Please refer to diagnostic heart catheterization that was performed by Dr. Alan. Anticoagulation was initiated using heparin with continuous ACT monitoring. Subsequently, I did engage the ARANGO using IM catheter. After that, I gave nitroglycerin, there was no improvement. After that, I wired using a run-through wire. Predilatation was performed using 2.5 mm balloon. Subsequently, I did intravascular imaging, showed a diameter about 3 mm. I deployed 3.0 x 15 mm Xience ELENA which was post dilated using 3.5 mm noncompliant balloon with final angiogram showed good angiographic results with GRIS-3 flow. POSTPROCEDURE MANAGEMENT: 1. Dual anti-platelet therapy. 2. Risk factor modifications. 3. Continue anti-platelet for at least 6 months. 4. Follow up with the patient. MMODL / IJN: [id number] /
[2023-07-26 13:29] VITALS: BMI 22.8
[2023-07-26] MEDS: HEPARIN SODIUM,PORCINE 5,000 UNIT/ML 1 ML VIAL SQ SCH ×2 (14:05→20:48)
[2023-07-26] MEDS: PANTOPRAZOLE 40 MG TABLET PO SCH (14:09)
[2023-07-26] MEDS: METOPROLOL SUCCINATE (ER) 50 MG TAB.ER.24H PO SCH (14:09)
[2023-07-26] MEDS: amLODIPine 10 MG TAB PO SCH (14:09)
--- NOTE | 2023-07-26 15:20 | P.PN ---
Subjective Progress Note Date: 07/26/23 This is an 82 year old male with history of 4 vessel CABG many years ago, hypertension, rheumatoid arthritis, hyperlipidemia, current smoker comes in with complaint of chest pain midsternal felt like a pressure like sensation currently rating a 2 to 3/10. No shortness of breath denies radiation of his lig htheadedness. Denies any recent illnesses. No fever or chills. Comes an EKG showing sinus bradycardia with a first-degree AV block heart rate of 46. Patient has been maintained on Toprol-XL 50 mg daily outpatient which will be held time. Chest x-ray showing post CABG changes with underlying COPD and no acute process. Admitted to the hospital in observation with cardiology in consultation. Has been evaluated and recommended to undergo cardiac catheterization tomorrow. Troponin level has been negative x 3. 07/26/2023 Patient underwent cardiac catheterization today and underwent stenting ARANGO to the LAD. Cardiology recommending dual antiplatelet therapy or atleast 6 months. Patient continues on aspirin plavix as well as high dose statin. He will be monitored overnight. REVIEW OF SYSTEMS: CONSTITUTIONAL: No fever, no malaise, no fatigue. HEENT: No recent visual problems or hearing problems. Denied any sore throat. CARDIOVASCULAR: No chest pain, orthopnea, PND, no palpitations, no syncope. PULMONARY: No shortness of breath, no cough, no hemoptysis. GASTROINTESTINAL: No diarrhea, no nausea, no vomiting, no abdominal pain. NEUROLOGICAL: No headaches, no weakness, no numbness. PHYSICAL EXAMINATION: GENERAL: The patient is alert and oriented x3, not in any acute distress. Well developed, well nourished. HEENT: Pupils are round and equally reacting to light. EOMI. No scleral icterus. No conjunctival pallor. Normocephalic, atraumatic. No pharyngeal erythema. No thyromegaly. CARDIOVASCULAR: S1 and S2 present. No murmurs, rubs, or gallops. PULMONARY: Chest is clear to auscultation, no wheezing or crackles. ABDOMEN: Soft, nontender, nondistended, normoactive bowel sounds. No palpable organomegaly. MUSCULOSKELETAL: No joint swelling or deformity. EXTREMITIES: No cyanosis, clubbing, or pedal edema. NEUROLOGICAL: Gross neurological examination did not reveal any focal deficits. SKIN: No rashes. Assessment and plan Chest pain acute nstemi s/p cardiac cath and stent of the ARANGO to LAD. Pt recommending for dual antiplatelet therapy with aspirin and plavix for atleast 6 months. Will be monitored overnight and can D/C home in the next 24 hours. 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 Dr. Rosalie MD I have performed a history and physical examination and medical decision making of this patient, discussed the same with the dictator, and agree with the d ictators assessment and plan as written, documented as a scribe. Based on total visit time, I have performed more than 50% of this visit. Objective - Vital Signs Vital signs: Vital Signs Temp 98 F 07/26/23 15:00 Pulse 67 07/26/23 15:00 Resp 18 07/26/23 15:00 BP 126/62 07/26/23 15:00 Pulse Ox 96 07/26/23 15:00 FiO2 Intake & Output 07/25/23 07/26/23 07/26/23 18:59 06:59 18:59 Intake Total 400 Output Total 200 Balance 200 Weight 62.142 kg 62.142 kg Intake: IV 400 Output: Urine 200 Other: Voiding Method Toilet Toilet # Voids 1 1 - Labs CBC & Chem 7: 07/24/23 10:46 07/24/23 10:46 Assessment and Plan Time with Patient: Less than 30
[2023-07-26 20:15] VITALS: RESP 16
[2023-07-26] MEDS: ATORVASTATIN 40 MG TAB PO SCH (20:48)
[2023-07-26] MEDS ORDERED: ATORVASTATIN 80 MG TAB PO SCH (21:00)
[2023-07-27] MEDS: SODIUM CHLORIDE 0.9% 1,000 ML IV SCH ×2 (03:33→11:40)
[2023-07-27] MEDS: NITROGLYCERIN OINT 1 INCH/GM PACKET TOPICAL SCH ×2 (06:02→11:40)
--- NOTE | 2023-07-27 08:22 | P.PN ---
Subjective Progress Note Date: 07/27/23 Principal diagnosis: Chest pain The patient is a 82-year-old gentleman was coronary artery disease and status post CABG who was admitted to the hospital with a chest discomfort concerning for angina and underwent heart catheterization and that he did severe disease involving the ostial ARANGO to LAD. He underwent stenting of the ARANGO to LAD He was seen and evaluated this morning. He is asymptomatic. He is on dual antiplatelet therapy and intermediate intensity statin. The examination is remarkable for a systolic murmur at the right and left upper sternal border From the cardiovascular standpoint of view, the patient can be discharged home on dual antiplatelet therapy and he'll need to follow-up with Dr. Walters in the office Objective - Vital Signs Vital signs: Vital Signs Temp 97.6 F 07/27/23 02:00 Pulse 58 L 07/27/23 02:45 Resp 16 07/27/23 02:45 BP 137/57 07/27/23 02:00 Pulse Ox 96 07/27/23 02:00 FiO2 Intake & Output 07/26/23 07/27/23 07/27/23 18:59 06:59 18:59 Intake Total 520 Output Total 380 Balance 140 Weight 62.142 kg Intake: IV 400 Oral 120 Output: Urine 380 Other: Voiding Method Toilet # Voids 2 - Labs CBC & Chem 7: 07/24/23 10:46 07/24/23 10:46
[2023-07-27 08:25] VITALS: BP 136/64; PULSE 78; TEMP 97.8
[2023-07-27] MEDS ORDERED: CLOPIDOGREL 75 MG TAB PO SCH (09:00)
[2023-07-27] MEDS: amLODIPine 10 MG TAB PO SCH (09:22)
[2023-07-27] MEDS: METOPROLOL SUCCINATE (ER) 50 MG TAB.ER.24H PO SCH (09:22)
[2023-07-27] MEDS: ASPIRIN 81 MG PO SCH (09:22)
[2023-07-27] MEDS: PANTOPRAZOLE 40 MG TABLET PO SCH (09:23)
[2023-07-27] MEDS: HEPARIN SODIUM,PORCINE 5,000 UNIT/ML 1 ML VIAL SQ SCH (09:23)
--- NOTE | 2023-07-27 13:44 | P.DS ---
Providers Date of admission: 07/24/23 11:59 Expected date of discharge: 07/27/23 Attending physician: Becky Latif Consults: 07/24/23 11:59 Consult Physician Urgent Consulting Provider: Clemente Crane Consult Reason/Comments: chest pian Do you want consulting provider notified?: Yes 07/26/23 09:07 Consult Physician Routine Consulting Provider: [facility] Consult Reason/Comments: Post Interventional patient Do you want consulting provider notified?: Already Contacted Primary care physician: Stated None Hospital Course: 82 year old male with history of 4 vessel CABG many years ago, hypertension, rheumatoid arthritis, hyperlipidemia, current smoker comes in with complaint of chest pain midsternal felt like a pressure like sensation currently rating a 2 to 3/10. No shortness of breath denies radiation of his lightheadedness. Denies any recent illnesses. No fever or chills. Comes an EKG showing sinus bradycardia with a first-degree AV block heart rate of 46. Patient has been maintained on Toprol-XL 50 mg daily outpatient which will be held time. Chest x-ray showing post CABG changes with underlying COPD and no acute process. Admitted to the hospital in observation with cardiology in consultation. Has been evaluated and recommended to undergo cardiac catheterization tomorrow. Troponin level has been negative x 3. 07/26/2023 Patient underwent cardiac catheterization today and underwent stenting ARANGO to the LAD. Cardiology recommending dual antiplatelet therapy or atleast 6 months. Patient continues on aspirin plavix as well as high dose statin. He will be monitored overnight 07/27/2023 : underwent heart catheterization and that he did severe disease involving the ostial ARANGO to LAD. He underwent stenting of the ARANGO to LAD. Was procedure patient was monitored overnight and discharged home on aspirin and Plavix PHYSICAL EXAMINATION: GENERAL: The patient is alert and oriented x3, not in any acute distress. Well developed, well nourished. HEENT: Pupils are round and equally reacting to light. EOMI. No scleral icterus. CARDIOVASCULAR: S1 and S2 present. No murmurs, rubs, or gallops. PULMONARY: Chest is clear to auscultation, no wheezing or crackles. ABDOMEN: Soft, nontender, nondistended, normoactive bowel sounds. No palpable organomegaly. MUSCULOSKELETAL: No joint swelling or deformity. EXTREMITIES: No cyanosis, clubbing, or pedal edema. NEUROLOGICAL: Gross neurological examination did not reveal any focal deficits. SKIN: No rashes. Assessment: Assessment and plan Chest pain acute nstemi s/p cardiac cath and stent of the ARANGO to LAD. 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 Patient counseled to take his medication from pharmacy and do not miss dose of aspirin and Plavix. Patient has good understanding, nursing staff instructed to give instructions upon discharge as well Regards to chronic medical issues or medications rest of the meds continue Plan - Discharge Summary New Discharge Prescriptions: New Atorvastatin [Lipitor] 40 mg PO HS 30 Days #30 tab Clopidogrel [Plavix] 75 mg PO DAILY 90 Days #90 tab Continue amLODIPine BESYLATE [Norvasc] 10 mg PO DAILY Nitroglycerin Sl Tabs [Nitrostat] 0.4 mg SUBLINGUAL Q5M PRN PRN Reason: Chest Pain Aspirin 81 mg PO DAILY Ketoconazole 2% Cream [Nizoral 2%] 1 applic TOPICAL DAILY PRN PRN Reason: Rash Omeprazole 20 mg PO DAILY PRN PRN Reason: acid reflux Ketoconazole 2% Shampoo [Nizoral] 1 applic TOPICAL DAILY PRN PRN Reason: scalp issues Metoprolol Succinate (ER) [Toprol XL] 50 mg PO DAILY Clotrimazole/Betameth Cream [Lotrisone] 1 applic TOPICAL BID PRN PRN Reason: Rash Docusate [Colace] 100 mg PO DAILY PRN PRN Reason: Constipation diphenhydrAMINE HCL [Benadryl] 25 - 50 mg PO QID PRN PRN Reason: itching/sleep Simethicone [Gas-X] 125 mg PO ACHS PRN PRN Reason: gas/bloating Albuterol Inhaler [Ventolin Hfa Inhaler] 1 - 2 puff INHALATION RT-Q6H PRN PRN Reason: Shortness Of Breath HYDROcodone/APAP 10-325MG [[place] 10-325] 1 tab PO Q6H PRN #30 tab PRN Reason: pain Dicyclomine [Bentyl] 10 mg PO TID Clobetasol Propionate [Temovate 0.05% Cream] 1 applic TOPICAL BID PRN PRN Reason: Rash hydrOXYzine HCL [Atarax] 10 mg PO BID PRN PRN Reason: Itching Discharge Medication List amLODIPine BESYLATE [Norvasc] 10 mg PO DAILY 01/14/14 [History] Nitroglycerin Sl Tabs [Nitrostat] 0.4 mg SUBLINGUAL Q5M PRN 10/12/15 [History] Aspirin 81 mg PO DAILY 09/18/18 [History] HYDROcodone/APAP 10-325MG [[place] 10-325] 1 tab PO Q6H PRN #30 tab 05/02/23 [Rx] Albuterol Inhaler [Ventolin Hfa Inhaler] 1 - 2 puff INHALATION RT-Q6H PRN 07/24/23 [History] Clobetasol Propionate [Temovate 0.05% Cream] 1 applic TOPICAL BID PRN 07/24/23 [History] Clotrimazole/Betameth Cream [Lotrisone] 1 applic TOPICAL BID PRN 07/24/23 [History] Dicyclomine [Bentyl] 10 mg PO TID 07/24/23 [History] Docusate [Colace] 100 mg PO DAILY PRN 07/24/23 [History] Ketoconazole 2% Cream [Nizoral 2%] 1 applic TOPICAL DAILY PRN 07/24/23 [History] Ketoconazole 2% Shampoo [Nizoral] 1 applic TOPICAL DAILY PRN 07/24/23 [History] Metoprolol Succinate (ER) [Toprol XL] 50 mg PO DAILY 07/24/23 [History] Omeprazole 20 mg PO DAILY PRN 07/24/23 [History] Simethicone [Gas-X] 125 mg PO ACHS PRN 07/24/23 [History] diphenhydrAMINE HCL [Benadryl] 25 - 50 mg PO QID PRN 07/24/23 [History] hydrOXYzine HCL [Atarax] 10 mg PO BID PRN 07/24/23 [History] Atorvastatin [Lipitor] 40 mg PO HS 30 Days #30 tab 07/27/23 [Rx] Clopidogrel [Plavix] 75 mg PO DAILY 90 Days #90 tab 07/27/23 [Rx] Follow up Appointment(s)/Referral(s): Skyler Walters MD [STAFF PHYSICIAN] - 1 Week None,Stated [Primary Care Provider] - 1-2 days Patient Instructions/Handouts: How to Stop Smoking (DC), Cigarette Smoking and Your Health (GEN) Discharge Disposition: HOME SELF-CARE
== END 2023-07-27 14:05 | disposition home or self-care (01) ==
LOC: EC 10:20 → 6NMEDSUR 11:59
PROVIDERS: ADMIT Hospitalist; ATTEND Hospitalist
DX: I25.810 Atherosclerosis of coronary artery bypass graft(s) without angina pectoris (principal); I25.84 Coronary atherosclerosis due to calcified coronary lesion; I25.82 Chronic total occlusion of coronary artery; I35.0 Nonrheumatic aortic (valve) stenosis; E78.5 Hyperlipidemia, unspecified; I10 Essential (primary) hypertension; I25.2 Old myocardial infarction; F25.9 Schizoaffective disorder, unspecified; F32.A Depression, unspecified; F41.9 Anxiety disorder, unspecified; J44.89 Other specified chronic obstructive pulmonary disease; R00.1 Bradycardia, unspecified; M06.9 Rheumatoid arthritis, unspecified; F10.11 Alcohol abuse, in remission; F17.200 Nicotine dependence, unspecified, uncomplicated; Z95.1 Presence of aortocoronary bypass graft; Z79.82 Long term (current) use of aspirin; Z79.899 Other long term (current) drug therapy; Z88.0 Allergy status to penicillin; Z88.2 Allergy status to sulfonamides; Z91.040 Latex allergy status
CPT/HCPCS: 96360; 96361 ×2; 96372 ×3; 99285; 36415; 93005; 93306; 92978; 93459; 92937; 80061; 80053; 83735; 84484; 85025; 85610; 85730; 71046; G0378 ×4; C1887; C1769 ×3; C1725 ×2; C1894; C1753; C1874; J2250; J1644 ×4; J2001; J3010; Q9967; J2305

== ENCOUNTER 2023-08-05 09:26 | Emergency (ER) | payer MEDICARE, OTHER ==
[2023-08-05 09:45] VITALS: TEMP 97.9
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
--- NOTE | 2023-08-05 10:54 | XR ---
EXAMINATION TYPE: XR ribs LT w pa chest xray DATE OF EXAM: 08/05/2023 9:58 AM CLINICAL INDICATION:Male, 83 years old with history of pain; [facility] COMPARISON: 07/24/2023 TECHNIQUE: XR ribs LT w pa chest xray; Frontal and oblique views of the ribs with frontal chest radio graph. FINDINGS: The ribs have a normal appearance. No evidence of fracture. Overall, the lungs are clear. The cardiac silhouette is normal in size. The remaining osseous structures are intact. Sternotomy w ires and right upper quadrant surgical clips. Calcified joint bodies and the inferior shoulder. IMPRESSION: 1. No acute osseous pathology. 2. Degeneration changes of the left shoulder likely calcified joint bodies.
[2023-08-05 11:48] VITALS: BP 128/74; PULSE 75; RESP 20
== END 2023-08-05 11:28 ==
LOC: EC 09:26
DX: S20.212A Contusion of left front wall of thorax, initial encounter (principal); I25.10 Atherosclerotic heart disease of native coronary artery without angina pectoris; I10 Essential (primary) hypertension; I25.2 Old myocardial infarction; F41.9 Anxiety disorder, unspecified; F32.A Depression, unspecified; F17.200 Nicotine dependence, unspecified, uncomplicated; Z79.82 Long term (current) use of aspirin; Z79.899 Other long term (current) drug therapy; Z91.040 Latex allergy status; Z91.018 Allergy to other foods; Z91.048 Other nonmedicinal substance allergy status; Z88.0 Allergy status to penicillin; Z88.2 Allergy status to sulfonamides; Z88.8 Allergy status to other drugs, medicaments and biological substances; W01.0XXA Fall on same level from slipping, tripping and stumbling without subsequent striking against object, initial encounter
CPT/HCPCS: 99284

== ENCOUNTER 2023-08-19 09:46 | Emergency (ER) | payer MEDICARE, OTHER ==
[2023-08-19] MEDS ORDERED: methylPREDNISolone SOD SUCCI 125 MG/2 ML VIAL IM ONE (10:08)
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
[2023-08-19 10:16] VITALS: BP 140/58; PULSE 72; RESP 20; TEMP 97.9
== END 2023-08-19 10:20 | disposition home or self-care (01) ==
LOC: EC 09:46
DX: L30.9 Dermatitis, unspecified (principal); I25.10 Atherosclerotic heart disease of native coronary artery without angina pectoris; I10 Essential (primary) hypertension; I25.2 Old myocardial infarction; F17.200 Nicotine dependence, unspecified, uncomplicated; Z86.59 Personal history of other mental and behavioral disorders; Z79.899 Other long term (current) drug therapy; Z79.82 Long term (current) use of aspirin; Z91.09 Other allergy status, other than to drugs and biological substances; Z91.040 Latex allergy status; Z88.0 Allergy status to penicillin; Z88.2 Allergy status to sulfonamides; Z88.1 Allergy status to other antibiotic agents; Z88.8 Allergy status to other drugs, medicaments and biological substances; Z91.018 Allergy to other foods
CPT/HCPCS: 99282; 96372; J2930

== ENCOUNTER 2024-01-12 09:19 | Emergency (ER) | payer MEDICARE, OTHER ==
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
[2024-01-12 10:42] VITALS: BP 129/87; PULSE 72; RESP 16; TEMP 97.7
== END 2024-01-12 10:40 | disposition home or self-care (01) ==
LOC: EC 09:19
DX: R21 Rash and other nonspecific skin eruption (principal); Z87.891 Personal history of nicotine dependence; Z88.0 Allergy status to penicillin; Z88.1 Allergy status to other antibiotic agents; Z88.2 Allergy status to sulfonamides; Z88.8 Allergy status to other drugs, medicaments and biological substances; Z91.040 Latex allergy status; Z90.49 Acquired absence of other specified parts of digestive tract; Z95.1 Presence of aortocoronary bypass graft
CPT/HCPCS: 99282

== ENCOUNTER 2024-03-04 10:00 | Emergency (ER) | payer MEDICARE, OTHER ==
[2024-03-04] MEDS ORDERED: MORPHINE SULFATE 4 MG/ML SYRINGE ONE (11:01)
[2024-03-04] MEDS ORDERED: KETOROLAC 15 MG/ML 1 ML VIAL ONE (11:01)
[2024-03-04] MEDS ORDERED: SODIUM CHLORIDE 0.9% 500 ML BAG ONE (11:38)
--- NOTE | 2024-03-24 13:05 | CT ---
Patient: Shaq Jason Ordering Physician: Unknown, Unknown ID: [id number] Phone, Pager: Phone: N/A Pager: N/A : [phone] Age/Gender: 83Y, M Primary Location: N/A Procedure: ABD/PEL W/ Study D ate: 03/04/2024 1:05:53 PM EXAMINATION TYPE: CT abdomen pelvis w con DATE OF EXAM: 03/04/2024 COMPARISON: 02/18/2018 INDICATION: Pelvic pain and umbilical pain DLP: 568 mGycm, Automated exposure control for dose reduction was used. CONTRAST: 100 mL of Isovue 300. Study performed without Oral Contrast TECHNIQUE: Axial images were obtained from above the diaphragm to the pubic rami in the axial plane a t 5 mm thick sections. Reconstructed images are reviewed on the computer in the coronal plane. FINDINGS: Limited CT sections are obtained the lung bases. The lung bases are clear. CT ABDOMEN: Liver: Normal Spleen: Normal Pancreas: Normal Adrenal glands: The adrenal glands are normal. Gallbladder: Surgically absent . Kidneys: No masses are evident. No hydronephrosis is present. There is a 1.4 cm cortical renal cyst posterior lateral right kidney there is a 2.1 cm cyst posterior inferior right kidney Delayed image s were obtained through the kidneys, which remain unremarkable. Aorta: Vascular calcification is within the aorta. Inferior vena cava: Normal. CT PELVIS: Loops of bowel within the abdomen and pelvis are normal. There are loops of bowel which are incom pletely distended or lack oral contrast limiting their evaluation. Appendix: Not identified. No dilated tubular structure or inflammatory changes evident. Urinary bladder: Normal. Genitourinary structures: Prostate is prominent. A calcification is present. Osseous structures: No suspicious lytic or sclerotic lesions. IMPRESSION: 1. Cortical renal cysts. 2. No suspicious abnormalities to account for periumbilical pain.
== END 2024-03-04 16:18 | disposition home or self-care (01) ==
LOC: EC 10:00
CPT/HCPCS: 74177; 96361; 96374; 96375; 99284

== ENCOUNTER 2024-04-13 17:20 | Emergency (ER) | payer MEDICARE, OTHER ==
[2024-04-13 17:59] LABS: Basophils # (A) 0.1 k/uL (0-0.2); Basophils % (A) 1 %; Eosinophils # (A) 0.4 k/uL (0-0.7); Eosinophils % (A) 5 %; HCT 40.5 % (39.0-53.0); HGB 13.6 gm/dL (13.0-17.5); Lymphocytes # (A) 1.2 k/uL (1.0-4.8); Lymphocytes % (A) 15 %; MCH 28.9 pg (25.0-35.0); MCHC 33.7 g/dL (31.0-37.0); MCV 85.9 fL (80.0-100.0); Mean Platelet Volume 8.9; Monocytes # (A) 0.7 k/uL (0-1.0); Monocytes % (A) 9 %; Neutrophils # (A) 5.2 k/uL (1.3-7.7); Neutrophils % (A) 67 %; Platelet Count 289 k/uL (150-450); RBC 4.72 m/uL (4.30-5.90); RDW 13.5 % (11.5-15.5); WBC 7.8 k/uL (3.8-10.6)
[2024-04-13 18:10] LABS: ALT 14 U/L (4-49); AST 22 U/L (17-59); African American GFR (CKD) >90 (>60 ml/min/1.73 sqM); Albumin 4.3 g/dL (3.5-5.0); Alkaline Phosphatase 118 U/L (38-126); Amylase 48 U/L (30-110); Anion Gap 6 mmol/L; Blood Urea Nitrogen 15 mg/dL (9-20); Calcium 9.7 mg/dL (8.4-10.2); Carbon Dioxide 24 mmol/L (22-30); Chloride 107 mmol/L (98-107); Glucose 103 mg/dL (74-99); Lipase 65 U/L (23-300); Non-African American GFR(CKD) 82 (>60 ml/min/1.73 sqM); Partial Thromboplastin Time 26.6 sec (22.0-30.0); Prothrombin Time 10.7 sec (10.0-12.5); Sodium 137 mmol/L (137-145); Total Bilirubin 0.6 mg/dL (0.2-1.3); Total Protein 7.1 g/dL (6.3-8.2)
--- NOTE | 2024-04-13 21:12 | CT ---
EXAMINATION TYPE: CT abdomen pelvis w con CT DLP: 613.5 mGycm, Automated exposure control for dose reduction was used. DATE OF EXAM: 04/13/2024 8:33 PM COMPARISON: CT abdomen pelvis most recent from 03/04/2024 CLINICAL INDICATION: Male, 83 years old with history of upper abdominal pain; Upper abdominal pain. TECHNIQUE: Axial CT abdomen pelvis w con;Sagittal and coronal reformats were created on a separate w orkstation. Contrast used:100 ml mL of Isovue 300 with IV Contrast, (none if empty) Oral contrast used: without Oral Contrast (none if empty) FINDINGS: LOWER CHEST: Unremarkable ABDOMEN LIVER: Simple appearing hepatic cysts. GALLBLADDER AND BILE DUCTS: Gallbladder surgically absent. PANCREAS: Unremarkable. SPLEEN: Small splenule is present. ADRENAL GLANDS: Unremarkable. KIDNEYS AND URETERS: No evidence of hydronephrosis or renal calculus. The ureters are unremarkable. Simple appearing right renal cyst. Mild dilation of the left collecting system without obstructing ca lculus. PELVIS BLADDER: Unremarkable REPRODUCTIVE: Unremarkable. ABDOMEN & PELVIS STOMACH AND BOWEL: No evidence of bowel obstruction. Small hiatal hernia. Scattered colonic diverticu la. PERITONEUM/RETROPERITONEUM: No evidence of pneumoperitoneum or free fluid. VASCULATURE: Moderate atherosclerotic calcifications are present throughout the abdominal aorta and i ts branches. No evidence of aortic aneurysm. MUSCULOSKELETAL: No acute osseous abnormalities, left hip fixation screws present. LYMPH NODES: No gross evidence for lymphadenopathy. SOFT TISSUE/ABDOMINAL WALL: Unremarkable IMPRESSION: 1. No evidence for acute abdominal process. 2. Mild dilation of the left collecting system without evidence for obstructive uropathy. Findings s imilar prior, 3. Colonic diverticulosis. [facility], , 04/13/2024 9:09 PM
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
[2024-04-13 22:27] VITALS: BP 130/72; PULSE 59; RESP 19; TEMP 97.4
== END 2024-04-13 22:26 | disposition home or self-care (01) ==
LOC: EC 17:20
CPT/HCPCS: 36415; 74177; 80053; 82150; 83690; 84484; 85025; 85610; 85730; 93005; 99284

== ENCOUNTER 2025-01-03 16:00 | Emergency (ER) | payer MEDICARE, OTHER ==
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
[2025-01-03 16:32] VITALS: PULSE 61
[2025-01-03] MEDS ORDERED: CLOBETASOL PROP 0.05% CR 15GM TOPICAL STA (16:34)
[2025-01-03] MEDS: methylPREDNISolone SOD SUCCI 125 MG/2 ML VIAL IM ONE (17:21)
[2025-01-03] MEDS: FAMOTIDINE 20 MG TAB PO STA (17:22)
[2025-01-03] MEDS: CLOBETASOL PROP 0.05% CR 15GM TOPICAL STA (17:23)
[2025-01-03 17:29] VITALS: BP 153/67; RESP 18; TEMP 98.3
== END 2025-01-03 17:30 | disposition home or self-care (01) ==
LOC: EC 16:00
DX: L50.9 Urticaria, unspecified (principal); Z87.891 Personal history of nicotine dependence; Z91.040 Latex allergy status; Z88.0 Allergy status to penicillin; Z88.1 Allergy status to other antibiotic agents; Z88.2 Allergy status to sulfonamides; Z91.018 Allergy to other foods; Z91.048 Other nonmedicinal substance allergy status; Z88.8 Allergy status to other drugs, medicaments and biological substances
CPT/HCPCS: 99282; 96372; J2919